=== PATIENT | male | born 1940 | race Caucasian/White ===

== ENCOUNTER → 2017-06-14 | Outpatient (CLI) | payer OTHER ==
[2015-09-07 18:01] VITALS: BP 143/70
--- NOTE | 2017-06-14 10:11 | US ---
HISTORY: Abdominal aortic aneurysm Study: Ultrasound of the abdominal aorta Comparison: October 09, 2015 Technique: Multiple sonographic images of the abdominal aorta are submitted for interpretation. Findings: The proximal abdominal aorta measures 2.3 x 2.4 cm compared to 2.5 x 2.7 cm on prior exam. The mid ab dominal aorta measures 4.5 x 4.9 cm compared to 3.9 x 4.0 cm on prior exam. The distal abdominal aort a measures 3.0 x 3.3 cm compared to 2.6 x 3.3 cm on prior exam. The common iliac arteries were not vi sualized. IMPRESSION: Aneurysmal dilatation of the abdominal aorta measuring up to 4.9 cm in caliber as discussed above. Th anton findings represent an interval increase in size since prior exam. Reported By:
== END ==
LOC: RAD 08:40
PROVIDERS: ATTEND Internal Medicine Cardiovascular Disease
DX: I71.4 Abdominal aortic aneurysm, without rupture (principal)
CPT/HCPCS: 76770

== ENCOUNTER 2021-03-25 00:55 | Inpatient (IN) ==
[2021-03-25 01:10] VITALS: BMI 32.1
--- NOTE | 2021-03-25 01:23 | DR.SOBA ---
HPI Time Seen Time Seen by Provider: 03/25/21 01:11 Primary Care Physician Primary Care Physician: SALLY HPI Comment HPI Comment: Worsening cough, congestion and sob over the past two 1-2weeks; he's been using jn at home but has not seen a doctor; he's had sob and wheezing and neb did not help tonight; his last cigarette was this past ; no fever, chills, abd pain, n/v/d, rash, adrian or dizziness Complaints Chief Complaint:: PT CAME IN [facility] BY [facility] PT STATED HE HAS BEEN MORE SOB FOR ABOUT A WEEK NOW THEN NORMALY HE SAID WHEN HE GETS SOB HE NORMALLY DOES A NEB TX AND IT HELPS BUT FOR SOME REASON TONIGHT AFTER THE NEB TX IT DIDNT HELP ANY. Self Treatment fo Chief Complaint: NEB TX COVID-19 Coronavirus risk:travel/contact w/high risk person: No Has patient experienced Coronavirus symptoms: Yes Coronavirus symptoms experienced: Shortness of Breath Source History Provided: Patient and EMS Mode of Arrival Mode of Arrival: EMS Timing Onset of Chief Complaint: 03/17/21 PMH PMH Past Medical History: Yes Past Medical History: COPD and Hypertension Past Medical History Comment: CHOLESTEROL Past Surgical History: Yes Surgical History: CABG/Valve Surgery and Ortho Surgery Family History History of Family Medical Conditions: Yes Family Medical History: Hypertension Social History Does patient currently use any type of tobacco product: Yes Have you used tobacco products in the last 12 months: Yes Type of Tobacco Use: Cigarettes How many years tobacco product used: 25 Does any household member use tobacco: Yes Alcohol Use: None Do you use any recreational Drugs:: No Lives With: Alone Lives Where: Home Travel Risk Coronavirus risk:travel/contact w/high risk person: No Has patient experienced Coronavirus symptoms: Yes Coronavirus symptoms experienced: Shortness of Breath Infectious screening In the last 2 months have you had wt loss of >10#?: NO Have you had fever, night sweats or hemotysis?: No Have you traveled outside the country in the last 6 months?: No Isolation: Standard ROS Review of Systems Constitutional: No Symptoms Reported Eyes: No Symptoms Reported ENTM: No Symptoms Reported Cardiovascular: No Symptoms Reported Gastrointestinal/Abdominal: No Symptoms Reported Genitourinary: No Symptoms Reported Neurological: No Symptoms Reported Musculoskeletal: No Symptoms Reported Integumentary: No Symptoms Reported Hematologic/Lymphatic: No Symptoms Reported Endocrine: No Symptoms Reported Psychiatric: No Symptoms Reported PE Vital Signs Vitals: Temperature 98.3 F Pulse Rate 109 Respiratory Rate 21 Blood Pressure [Left Arm] 142/78 Blood Pressure 166/76 O2 Sat by Pulse Oximetry 95 General Limitations: No Limitations General Appearance: Alert and In No Apparent Distress Head Head Exam: Normal Inspection Eyes Eye exam: Normal Appearance ENT ENT Exam: Normal Exam Neck Neck Exam: Normal Inspection, Full ROM and Trachea Midline Chest Chest Inspection: Normal Inspection and Symmetric Chest Wall Rise Respiratory Respiratory Exam: Bilateral: Decreased Breath Sounds Cardiovascular Cardiovascular Exam: Regular Rate and Normal Rhythm Abdominal Exam Abdominal Exam: Normal Inspection, Normal Bowel Sounds and Soft Extremities Extremities Exam: Normal Inspection and Full ROM Back Back Exam: Normal Inspection and Full ROM Neurologic Neurological Exam: Alert and Oriented X3 Psychiatric Psychiatric Exam: Normal Affect and Normal Mood Skin Skin Exam: Warm COURSE Consultation Call Returned: 07:08 (Dr Cool accepts admission.) ROR Labs Reviewed Laboratory Results Reviewed?: Yes Result Diagrams: 03/25/21 04:50 03/25/21 04:50 Laboratory: WBC 11.3 X10^3/uL (3.6-10.0) H 03/25/21 01:21 RBC 5.10 X10^6/uL (4.7-6.0) 03/25/21 01:21 Hgb 15.1 g/dL (13.5-18.0) 03/25/21 01:21 Hct 45.0 % (42.0-54.0) 03/25/21 01:21 MCV 88.2 fL (80.0-100.0) 03/25/21 01:21 MCH 29.5 pg (27.0-34.0) 03/25/21 01:21 MCHC 33.5 g/dL (33.0-35.0) 03/25/21 01: RDW 16.4 % (11.6-16.5) 03/25/21 01:21 Plt Count 148 X10^3/uL (150.0-450.0) L 03/25/21 01:21 MPV 8.9 fL (7.4-11.0) 03/25/21 01:21 Neut % (Auto) 76.1 % (42.0-75.0) H 03/25/21 01:21 Lymph % (Auto) 15.6 % (21.0-51.0) L 03/25/21 01:21 [place] % (Auto) 6.4 % (0.0-13.0) 03/25/21 01:21 Eos % (Auto) 1.2 % (0.9-2.9) 03/25/21 01:21 Baso % (Auto) 0.7 % (0.2-1.0) 03/25/21 01:21 Neut # (Auto) 8.6 x10^3/uL (2.2-4.8) H 03/25/21 01:21 Lymph # (Auto) 1.8 X10^3/uL (1.3-2.9) 03/25/21 01:21 [place] # (Auto) 0.7 x10^3/uL (0.3-0.8) 03/25/21 01:21 Eos # (Auto) 0.1 x10^3/uL (0.0-0.2) 03/25/21 01:21 Baso # (Auto) 0.1 X10^3/uL (0.0-0.1) 03/25/21 01:21 Absolute Nucleated RBC 0.2 /100WBC 03/25/21 01:21 D-Dimer 1.14 ug/ml (0.0-0.57) H* 03/25/21 01:21 Sample Site Lrad 03/25/21 01:45 ABG pH 7.380 (7.35-7.45) 03/25/21 01:45 ABG pCO2 53.0 mmHg (35.0-45.0) H* 03/25/21 01:45 ABG pO2 65.0 mmHg (80.0-100.0) L 03/25/21 01:45 ABG HCO3 31.4 mmol/L (22-26) H* 03/25/21 01:45 ABG O2 Saturation 92.0 % (90-100) 03/25/21 01:45 ABG Base Excess 5.0 mmol/L (-2.0-2.0) H 03/25/21 01:45 Anselmo Test Pos 03/25/21 01:45 A-a Gradient 125.0 mmHg 03/25/21 01:45 FiO2 36.0 03/25/21 01:45 Blood Gas Comments Kelly well ms 03/25/21 01:45 Sodium 141 mmol/L (136-145) 03/25/21 01:21 Corrected Sodium TNP 03/25/21 01:21 Potassium 4.2 mmol/L (3.5-5.1) 03/25/21 01:21 Chloride 103 mmol/L (98-107) 03/25/21 01:21 Carbon Dioxide 31.1 mmol/L (21-32) 03/25/21 01:21 BUN 20 mg/dL (7-18) H 03/25/21 01:21 Creatinine 1.16 mg/dL (0.70-1.30) 03/25/21 01:21 Est GFR (MDRD) Af Amer > 60 (>60) 03/25/21 01:21 Est GFR (MDRD) Non-Af > 60 (>60) 03/25/21 01:21 Glucose 109 mg/dL (65-99) H 03/25/21 01:21 Calcium 8.4 mg/dL (8.5-10.1) L 03/25/21 01:21 Corrected Calcium 9.0 mg/dL (8.5-10.1) 03/25/21 01:21 Total Bilirubin 0.40 mg/dL (0.2-1.0) 03/25/21 01:21 AST 25 Units/L (15-37) 03/25/21 01:21 ALT 29 Units/L (12-78) 03/25/21 01:21 Alkaline Phosphatase 75 Units/L (46-116) 03/25/21 01:21 B-Natriuretic Peptide 176 pg/mL (0-79) H 03/25/21 01:21 Total Protein 8.3 g/dL (6.4-8.2) H 03/25/21 01:21 Albumin 3.2 g/dL (3.4-5.0) L 03/25/21 01:21 Globulin 5.1 g/dL (2.5-4.5) H 03/25/21 01:21 Albumin/Globulin Ratio 0.6 Ratio (1.1-2.1) L 03/25/21 01:21 SARS-CoV-2 (PCR) Negative (NEGATIVE) 03/25/21 01:23 Influenza Type A (PCR) Negative (NEGATIVE) 03/25/21 01:23 Influenza Type B (PCR) Negative (NEGATIVE) 03/25/21 01:23 RSV (PCR) Negative (NEGATIVE) 03/25/21 01:23 XRAY XRAY Interpreted by: Radiologist X-ray Results: pcxr: The trachea is midline. The cardiac silhouette is enlarged. Changes of prior CABG surgery present.Chronic interstitial lung changes with flattening of the diaphragm consistent with COPD is observed. Small right pleural effusion with right basilar atelectasis or consolidation. The bony thorax is unremarkable. ct chest: Unremarkable CTA of the thoracic aorta and pulmonary arteries. Cardiomegaly with mild pulmonary vascular congestion with early interstitial edema. Small left and moderate-sized right pleural effusions with compressive atelectasis in the right lung base. Opioid Opioid Risk Tool Age (Gautam box if 16-45): No History of Preadolescent Sexual Abuse: No Total: 0 Total Score Risk Category: Low Risk Copyright: Maycol SANDOVAL predicting aberrant behaviors Diagnosis Discharge Problem: Hypoxia, COPD exacerbation, Mild congestive heart failure Instructions Forms: [facility] Patient Portal Social Distancing
[2021-03-25 01:45] LABS: ALANINE AMINOTRANSFERASE 29 Units/L (12-78); ALBUMIN 3.2 g/dL (3.4-5.0); ALKALINE PHOSPHATASE 75 Units/L (46-116); ASPARTATE AMINO TRANSFERASE 25 Units/L (15-37); BASOPHILS # (AUTO) 0.1 X10^3/uL (0.0-0.1); BASOPHILS % (AUTO) 0.7 % (0.2-1.0); BLOOD UREA NITROGEN 20 mg/dL (7-18); CALCIUM 8.4 mg/dL (8.5-10.1); CARBON DIOXIDE 31.1 mmol/L (21-32); CHLORIDE 103 mmol/L (98-107); CREATININE 1.16 mg/dL (0.70-1.30); EOSINOPHILS # (AUTO) 0.1 x10^3/uL (0.0-0.2); EOSINOPHILS % (AUTO) 1.2 % (0.9-2.9); HEMOGLOBIN 15.1 g/dL (13.5-18.0); LYMPHOCYTES # (AUTO) 1.8 X10^3/uL (1.3-2.9); LYMPHOCYTES % (AUTO) 15.6 % (21.0-51.0); MEAN CORPUSCULAR HEMOGLOBIN 29.5 pg (27.0-34.0); MEAN CORPUSCULAR HGB CONC 33.5 g/dL (33.0-35.0); MEAN CORPUSCULAR VOLUME 88.2 fL (80.0-100.0); MEAN PLATELET VOLUME 8.9 fL (7.4-11.0); MONOCYTES # (AUTO) 0.7 x10^3/uL (0.3-0.8); MONOCYTES % (AUTO) 6.4 % (0.0-13.0); NEUTROPHILS # (AUTO) 8.6 x10^3/uL (2.2-4.8); NEUTROPHILS % (AUTO) 76.1 % (42.0-75.0); PLATELET COUNT 148 X10^3/uL (150.0-450.0); RED CELL DISTRIBUTION WIDTH 16.4 % (11.6-16.5); SODIUM 141 mmol/L (136-145); TOTAL PROTEIN 8.3 g/dL (6.4-8.2); WHITE BLOOD COUNT 11.3 X10^3/uL (3.6-10.0); eGFR NON BLACK RACES > 60 (>60)
[2021-03-25 01:50] LABS: ABG ALLEN TEST POS
[2021-03-25] MEDS ORDERED: NS 100 ML IV 100 ML ONE (02:01)
[2021-03-25] MEDS ORDERED: SOLU-Medrol 125 MG VIAL IVP ONE (02:06)
[2021-03-25] MEDS ORDERED: ZITHROMAX INJ 500 MG VIAL 500 MG in NS 250 ML IV 250 ML IV SCH ×2 (02:07→04:32)
[2021-03-25] MEDS ORDERED: DUONEB 0.5 MG/3 MG (3 mL) NEB ONE ×2 (02:07→04:39)
[2021-03-25] MEDS ORDERED: SOLU-Medrol 125 MG VIAL ONE (02:21)
[2021-03-25] MEDS ORDERED: ZITHROMAX INJ 500 MG VIAL IV ONE (02:21)
[2021-03-25] MEDS ORDERED: NS 250 ML IV 250 ML IV ONE (02:21)
--- NOTE | 2021-03-25 02:43 | RAD ---
HISTORYSOB, COUGH PMH: COPD, HTN PSH: CABG/VALVE, ORTHOSTUDYCHEST, 1 [id number]/07/2019, report onlyFINDINGSThe trachea is midline. The cardiac silhouette is enlarged. Changes of prior CABG surgery present.Chronic interstitial lung changes with flattening of the diaphragm consistent with COPD is observed. Small right pleural effusion with right basilar atelectasis or consolidation. The bony thorax is unremarkable.IMPRESSIONCardiomegaly.COPD. consolidation..Electronically signed by: Jono Ibanez (Mar 25, 2021 02:41:27)
[2021-03-25] MEDS ORDERED: ATIVAN INJ 2 MG VIAL ONE (03:24)
[2021-03-25] MEDS ORDERED: ATIVAN INJ 2 MG VIAL IM ONE (03:30)
--- NOTE | 2021-03-25 04:21 | CT ---
HISTORYHYPOXIA, ELEVATED D-DIMERSTUDYCTA CHESTCOMPARISONChest radiograph 03/25/2021TECHNIQUEMultiple axial images of the chest were obtained from the thoracic inlet to the upper abdomen after the administration of IV contrast. 3D reconstructions utilizing axial MIPS imaging was performed and reviewed. Dose reduction techniques including Automated Exposure Control (AEC) and adjustment of mA and kV were utilized.FINDINGSThe mediastinum does not demonstrate significant pathological lymphadenopathy. There is no paracardial effusion observed. The heart is enlarged. The thoracic aorta is normal in its contour without evidence for aneurysmal dilatation. The central pulmonary arterial system does not demonstrate central filling defects to suggest pulmonary emboli.Evaluation of the lung parenchyma small left and moderate-sized right pleural effusions. There is compressive atelectasis within the right lung base. Mild pulmonary vascular congestion with early interstitial edema. Emphysematous changes throughout the lungs.. No pulmonary nodule or mass can be identified. The bony thorax is unremarkable in its appearance . The visualized portions of the upper abdomen are grossly unremarkable .IMPRESSIONUnremarkable CTA of the thoracic aorta and pulmonary arteries.Cardiomegaly with mild pulmonary vascular congestion with early interstitial edema.Small left and moderate-sized right pleural effusions with compressive atelectasis in the right lung base.Electronically signed by: Jono Ibanez (Mar 25, 2021 04:19:48)
[2021-03-25] MEDS ORDERED: ROCEPHIN VIAL 1 GRAM 1 G in NS 100 ML IV + SPIKE MINIBAG* 100 ML IV SCH (04:33)
[2021-03-25] MEDS ORDERED: ATIVAN TAB 1 MG PO PRN (04:34)
[2021-03-25] MEDS ORDERED: ROCEPHIN VIAL 1 GRAM ONE (04:54)
[2021-03-25] MEDS ORDERED: NS 100 ML IV + SPIKE MINIBAG* 100 ML IV ONE (04:54)
[2021-03-25 05:08] LABS: BASOPHILS # (AUTO) 0.1 X10^3/uL (0.0-0.1); BASOPHILS % (AUTO) 0.5 % (0.2-1.0); EOSINOPHILS # (AUTO) 0.1 x10^3/uL (0.0-0.2); EOSINOPHILS % (AUTO) 0.5 % (0.9-2.9); HEMATOCRIT 44.2 % (42.0-54.0); HEMOGLOBIN 14.6 g/dL (13.5-18.0); LYMPHOCYTES # (AUTO) 1.5 X10^3/uL (1.3-2.9); LYMPHOCYTES % (AUTO) 10.6 % (21.0-51.0); MEAN CORPUSCULAR HEMOGLOBIN 29.1 pg (27.0-34.0); MEAN CORPUSCULAR HGB CONC 32.9 g/dL (33.0-35.0); MEAN CORPUSCULAR VOLUME 88.3 fL (80.0-100.0); MEAN PLATELET VOLUME 9.3 fL (7.4-11.0); MONOCYTES # (AUTO) 0.2 x10^3/uL (0.3-0.8); MONOCYTES % (AUTO) 1.7 % (0.0-13.0); NEUTROPHILS # (AUTO) 12.3 x10^3/uL (2.2-4.8); NEUTROPHILS % (AUTO) 86.7 % (42.0-75.0); PLATELET COUNT 165 X10^3/uL (150.0-450.0); RED BLOOD COUNT 5.01 X10^6/uL (4.7-6.0); RED CELL DISTRIBUTION WIDTH 16.6 % (11.6-16.5); WHITE BLOOD COUNT 14.2 X10^3/uL (3.6-10.0)
[2021-03-25 05:17] LABS: ALANINE AMINOTRANSFERASE 28 Units/L (12-78); ALBUMIN 3.2 g/dL (3.4-5.0); ALKALINE PHOSPHATASE 78 Units/L (46-116); ASPARTATE AMINO TRANSFERASE 25 Units/L (15-37); BLOOD UREA NITROGEN 20 mg/dL (7-18); CALCIUM 8.3 mg/dL (8.5-10.1); CARBON DIOXIDE 28.2 mmol/L (21-32); CHLORIDE 102 mmol/L (98-107); COR CA(FOR HYPOALB) 8.9 mg/dL (8.5-10.1); COR NA(FOR HYPERGLY) 139 mmol/L (136-145); SODIUM 138 mmol/L (136-145); TOTAL PROTEIN 8.3 g/dL (6.4-8.2); eGFR NON BLACK RACES > 60 (>60)
[2021-03-25] MEDS ORDERED: MORPHINE SULFATE INJ 2 MG INJ IVP PRN (05:21)
[2021-03-25] MEDS ORDERED: MORPHINE SULFATE INJ 2 MG INJ ONE (05:22)
[2021-03-25] MEDS: DUONEB 0.5 MG/3 MG (3 mL) NEB PRN ×5 (05:59→21:00)
[2021-03-25 06:37] LABS: CKMB % 2.6 % (<4); CREATINE KINASE 108 Units/L (39-308); CREATINE KINASE MB 2.8 ng/mL (0-4.0); TROPONIN I < 0.02 ng/mL (0-1.5)
[2021-03-25] MEDS: LASIX IVP SCH ×2 (08:46→09:08)
[2021-03-25] MEDS: LOVENOX INJ 40 MG SYR SC SCH (08:47)
[2021-03-25] MEDS ORDERED: TOPROL XL PO ONE (12:02)
[2021-03-25] MEDS: TOPROL XL PO SCH (12:09)
[2021-03-25] MEDS: XANAX PO PRN (12:09)
[2021-03-25] MEDS: SOLU-Medrol 125 MG VIAL IVP SCH ×2 (14:18→21:00)
[2021-03-25] MEDS: NORVASC TAB 10 MG PO SCH (14:26)
[2021-03-25] MEDS: ZITHROMAX INJ 500 MG VIAL 500 MG in NS 250 ML IV 250 ML IV SCH (20:23)
[2021-03-25] MEDS: PEPCID TAB 20 MG PO SCH (20:25)
[2021-03-25] MEDS: PERCOCET TAB 5/325 MG PO SCH (20:26)
[2021-03-25] MEDS: ZANAFLEX PO SCH (20:27)
[2021-03-26] MEDS: XANAX PO PRN ×2 (05:00→20:36)
[2021-03-26 05:02] LABS: BASOPHILS % (AUTO) 0.3 % (0.2-1.0); HEMATOCRIT 41.5 % (42.0-54.0); HEMOGLOBIN 13.9 g/dL (13.5-18.0); LYMPHOCYTES # (AUTO) 1.2 X10^3/uL (1.3-2.9); MEAN CORPUSCULAR HEMOGLOBIN 29.3 pg (27.0-34.0); MEAN CORPUSCULAR HGB CONC 33.6 g/dL (33.0-35.0); MEAN CORPUSCULAR VOLUME 87.3 fL (80.0-100.0); MEAN PLATELET VOLUME 9.8 fL (7.4-11.0); MONOCYTES # (AUTO) 0.3 x10^3/uL (0.3-0.8); MONOCYTES % (AUTO) 2.4 % (0.0-13.0); NEUTROPHILS # (AUTO) 11.2 x10^3/uL (2.2-4.8); NEUTROPHILS % (AUTO) 88.3 % (42.0-75.0); PLATELET COUNT 151 X10^3/uL (150.0-450.0); RED BLOOD COUNT 4.76 X10^6/uL (4.7-6.0); RED CELL DISTRIBUTION WIDTH 16.1 % (11.6-16.5); WHITE BLOOD COUNT 12.7 X10^3/uL (3.6-10.0)
[2021-03-26 05:18] LABS: ALANINE AMINOTRANSFERASE 30 Units/L (12-78); ALKALINE PHOSPHATASE 71 Units/L (46-116); ASPARTATE AMINO TRANSFERASE 26 Units/L (15-37); BLOOD UREA NITROGEN 31 mg/dL (7-18); CALCIUM 8.3 mg/dL (8.5-10.1); CARBON DIOXIDE 27.4 mmol/L (21-32); CHLORIDE 102 mmol/L (98-107); COR CA(FOR HYPOALB) 9.1 mg/dL (8.5-10.1); COR NA(FOR HYPERGLY) 142 mmol/L (136-145); CREATININE 1.36 mg/dL (0.70-1.30); SODIUM 140 mmol/L (136-145); TOTAL PROTEIN 7.8 g/dL (6.4-8.2); eGFR NON BLACK RACES 54 (>60)
[2021-03-26] MEDS: SOLU-Medrol 125 MG VIAL IVP SCH ×3 (05:55→21:27)
[2021-03-26] MEDS: DUONEB 0.5 MG/3 MG (3 mL) NEB PRN ×4 (06:00→16:35)
--- NOTE | 2021-03-26 06:09 | RAD ---
HISTORYCOPDSTUDYChest AP [id number] ent is status post median sternotomy and CABG. The heart remains enlarged. Mild congestive heart failure is present in the form of mild interstitial edema. No alveolar edema or alveolar infiltrates identified. Small right pleural effusion is unchanged. Bony thorax is unremarkable.IMPRESSIONCardiomegaly with mild congestive heart failureNo change right pleural effusionElectronically signed by: SUSAN JOYCE (Mar 26, 2021 06:07:49)
--- NOTE | 2021-03-26 08:13 | DR.H&P ---
H&P History & Physical for Day of: H&P Date: 03/25/21 Chief Complaint Chief Complaint: Shortness of breath Cough, weakness Allergies Allergies Allergy/AdvReac Type Severity Reaction Status Date / Time No Known Drug Allergies Allergy Verified 06/02/18 17:31 History of Present Illness History of Present Illness: Pt is a 81 year old male past medical history of CO PD, CABG, Hypertension, presenting with progressively worsening shortness of breath and weakness for the past week. He also reports not taking his lasix for the past couple days. In the ED he was found to have dyspnea, wheezing, and hypoxic. He is currently requiring 3L nasal cannula supplemental oxygen. Labs/imaging: Wbc 14.2, Hgb 14.6, Plt 165, Na 138, K 4.1, Creatinine 1.10, Glucose 134, Troponin negative, BNP 176, D-dimer 1.14, ABG was obtained: pH 7.38, pCO2 53, pO2 65, HCO3 31, O2sat 92% on FiO2 36%. COVID/RSV/Flu negative, CXR: Chronic interstitial lung changes with flattening of the diaphragm consistent with COPD is observed. Small right pleural effusion with right basilar atelectasis or consolidation. CTA Chest was obtained due to elevated D- dimer that revealed: Unremarkable CTA of the thoracic aorta and pulmonary arteries. Cardiomegaly with mild pulmonary vascular congestion with early interstitial edema. Small left and moderate-sized right pleural effusions with compressive atelectasis in the right lung base. Pt was started on treatment for COPD exacerbation and CHF exacerbation that includes: Antibiotics: Rocephin, Azithromycin, IV Lasix 40mg daily, IV Solumedrol 80mg q8h, scheduled bronchodilators. Wean/titrate supplemental oxygen as tolerated, restart home medications. Review of records had Echo in 11/2020: EF 61%. Continue to monitor closely and follow up labs/imaging in the morning. Time spent on clinical assessment, reviewing labs and imaging, decision making, and documentation greater than 45 minutes. Past Medical History Past Medical History: COPD and Hypertension Past Surgical History Surgical History: CABG/Valve Surgery Family History Family Medical History: Hypertension Social History Does patient currently use any type of tobacco product: Yes Have you used tobacco products in the last 12 months: Yes Type of Tobacco Use: Cigarettes How many years tobacco product used: 25 Does any household member use tobacco: Yes Alcohol Use: None Drug Use: None Medications Home Medications: No Known Drug Allergies Allergy (Verified 06/02/18 17:31) CONTINUE taking the following medications albuterol sulfate 90 mcg INHALATION PRN PRN 03/25/21 [History] alprazolam 0.5 mg PO Q6H PRN 03/25/21 [History] famotidine 20 mg PO BID 03/25/21 [History] furosemide 40 mg PO DAILY 03/25/21 [History] ipratropium-albuterol 2.5 ml INHALATION PRN PRN 03/25/21 [History] oxycodone-acetaminophen 1 tab PO BID 03/25/21 [History] potassium chloride 20 meq PO DAILY 03/25/21 [History] simvastatin 10 mg PO DAILY 03/25/21 [History] tizanidine 4 mg PO BID 03/25/21 [History] Labs Result Diagrams: 03/26/21 04:18 03/26/21 04:18 Labs: Laboratory WBC 12.7 X10^3/uL (3.6-10.0) H 03/26/21 04:18 RBC 4.76 X10^6/uL (4.7-6.0) 03/26/21 04:18 Hgb 13.9 g/dL (13.5-18.0) 03/26/21 04:18 Hct 41.5 % (42.0-54.0) L 03/26/21 04:18 MCV 87.3 fL (80.0-100.0) 03/26/21 04:18 MCH 29.3 pg (27.0-34.0) 03/26/21 04:18 MCHC 33.6 g/dL (33.0-35.0) 03/26/21 04:18 RDW 16.1 % (11.6-16.5) 03/26/21 04:18 Plt Count 151 X10^3/uL (150.0-450.0) 03/26/21 04:18 MPV 9.8 fL (7.4-11.0) 03/26/21 04:18 Neut % (Auto) 88.3 % (42.0-75.0) H 03/26/21 04:18 Lymph % (Auto) 9.0 % (21.0-51.0) L 03/26/21 04:18 [place] % (Auto) 2.4 % (0.0-13.0) 03/26/21 04:18 Eos % (Auto) 0.0 % (0.9-2.9) L 03/26/21 04:18 Baso % (Auto) 0.3 % (0.2-1.0) 03/26/21 04:18 Neut # (Auto) 11.2 x10^3/uL (2.2-4.8) H 03/26/21 04:18 Lymph # (Auto) 1.2 X10^3/uL (1.3-2.9) L 03/26/21 04:18 [place] # (Auto) 0.3 x10^3/uL (0.3-0.8) 03/26/21 04:18 Eos # (Auto) 0.0 x10^3/uL (0.0-0.2) 03/26/21 04:18 Baso # (Auto) 0.0 X10^3/uL (0.0-0.1) 03/26/21 04:18 Absolute Nucleated RBC 0.1 /100WBC 03/26/21 04:18 D-Dimer 1.14 ug/ml (0.0-0.57) H* 03/25/21 01:21 Sample Site Lrad 03/25/21 01:45 ABG pH 7.380 (7.35-7.45) 03/25/21 01:45 ABG pCO2 53.0 mmHg (35.0-45.0) H* 03/25/21 01:45 ABG pO2 65.0 mmHg (80.0-100.0) L 03/25/21 01:45 ABG HCO3 31.4 mmol/L (22-26) H* 03/25/21 01:45 ABG O2 Saturation 92.0 % (90-100) 03/25/21 01:45 ABG Base Excess 5.0 mmol/L (-2.0-2.0) H 03/25/21 01:45 Anselmo Test Pos 03/25/21 01:45 A-a Gradient 125.0 mmHg 03/25/21 01:45 FiO2 36.0 03/25/21 01:45 Blood Gas Comments Kelly well ms 03/25/21 01:45 Sodium 140 mmol/L (136-145) 03/26/21 04:18 Corrected Sodium 142 mmol/L (136-145) 03/26/21 04:18 Potassium 4.1 mmol/L (3.5-5.1) 03/26/21 04:18 Chloride 102 mmol/L (98-107) 03/26/21 04:18 Carbon Dioxide 27.4 mmol/L (21-32) 03/26/21 04:18 BUN 31 mg/dL (7-18) H 03/26/21 04:18 Creatinine 1.36 mg/dL (0.70-1.30) H 03/26/21 04:18 Est GFR (MDRD) Af Amer > 60 (>60) 03/26/21 04:18 Est GFR (MDRD) Non-Af 54 (>60) L 03/26/21 04:18 Glucose 174 mg/dL (65-99) H 03/26/21 04:18 Calcium 8.3 mg/dL (8.5-10.1) L 03/26/21 04:18 Corrected Calcium 9.1 mg/dL (8.5-10.1) 03/26/21 04:18 Total Bilirubin 0.30 mg/dL (0.2-1.0) 03/26/21 04:18 AST 26 Units/L (15-37) 03/26/21 04:18 ALT 30 Units/L (12-78) 03/26/21 04:18 Alkaline Phosphatase 71 Units/L (46-116) 03/26/21 04:18 Creatine Kinase 108 Units/L (39-308) 03/25/21 04:50 CK-MB (CK-2) 2.8 ng/mL (0-4.0) 03/25/21 04:50 CK/CKMB % Calc 2.6 % (<4) 03/25/21 04:50 Troponin I < 0.02 ng/mL (0-1.5) 03/25/21 04:50 B-Natriuretic Peptide 176 pg/mL (0-79) H 03/25/21 01:21 Total Protein 7.8 g/dL (6.4-8.2) 03/26/21 04:18 Albumin 3.0 g/dL (3.4-5.0) L 03/26/21 04:18 Globulin 4.8 g/dL (2.5-4.5) H 03/26/21 04:18 Albumin/Globulin Ratio 0.6 Ratio (1.1-2.1) L 03/26/21 04:18 SARS-CoV-2 (PCR) Negative (NEGATIVE) 03/25/21 01:23 Influenza Type A (PCR) Negative (NEGATIVE) 03/25/21 01:23 Influenza Type B (PCR) Negative (NEGATIVE) 03/25/21 01:23 RSV (PCR) Negative (NEGATIVE) 03/25/21 01:23 Review of Systems Constitutional: Weakness; denies Fever and Chills Eyes: No Symptoms Reported ENT: No Symptoms Reported Respiratory: Cough, Shortness of Breath, Sputum and Wheezing Cardiovascular: No Symptoms Reported Gastrointestinal: No Symptoms Reported Genitourinary: No Symptoms Reported Musculoskeletal: No Symptoms Reported Skin: No Symptoms Reported Neurological: No Symptoms Reported Physical Exam Vital Signs: Temperature 97.8 F Pulse Rate [Radial] 109 Pulse Rate 101 Respiratory Rate 26 Blood Pressure [Left Arm] 142/78 Blood Pressure 148/70 O2 Sat by Pulse Oximetry 92 Oriented: Normal Eyes: Normal Ear: Normal Nose: Normal Throat: Normal Respiratory: Diminished Throughout, Rales Throughout and Wheezes Throughout Cardiovascular: Normal : Normal Auscultation: Bowel Sounds: Normal Palpation: Normal Tenderness: Normal Skin: Normal Musculoskeletal: Normal Psychiatric: Normal Mood Description: Calm and Appropriate Affect: Normal Speech Pattern: Clear and Appropriate Assessment/Plan (1) COPD exacerbation: Status: Acute (2) Mild congestive heart failure: Status: Acute (3) Hypoxia: Status: Acute Review H&P Reviewed: Yes Patient was examined?: Yes
[2021-03-26] MEDS ORDERED: TOPROL XL PO ONE (08:25)
[2021-03-26] MEDS: LOVENOX INJ 40 MG SYR SC SCH (08:48)
[2021-03-26] MEDS: ECOTRIN TAB 325 MG PO SCH (08:50)
[2021-03-26] MEDS: LASIX IVP SCH (08:50)
[2021-03-26] MEDS: ROCEPHIN VIAL 1 GRAM 1 G in NS 100 ML IV + SPIKE MINIBAG* 100 ML IV SCH (08:51)
[2021-03-26] MEDS: PEPCID TAB 20 MG PO SCH ×2 (08:51→20:35)
[2021-03-26] MEDS: NORVASC TAB 10 MG PO SCH (08:51)
[2021-03-26] MEDS: PERCOCET TAB 5/325 MG PO SCH ×2 (08:51→20:35)
[2021-03-26] MEDS: TOPROL XL PO SCH (08:51)
[2021-03-26] MEDS: ZOCOR TAB 10 MG PO SCH (08:52)
[2021-03-26] MEDS: ZANAFLEX PO SCH ×2 (08:52→20:36)
[2021-03-26] MEDS ORDERED: SOLU-Medrol 125 MG VIAL IVP SCH (09:00)
[2021-03-26] MEDS ORDERED: ZOFRAN INJ 4 MG VIAL IVP PRN (12:42)
[2021-03-26 14:09] LABS: ABG HCO3 31.4 mmol/L (22-26)
--- NOTE | 2021-03-26 18:57 | PCM.PROG ---
Progress Note Progress Note for Day of Date of Exam: 03/26/21 Subjective Subjective: Pt is a 81 year old male past medical history of COPD, CABG, Hypertension, admitted for COPD exacerbation and CHF exacerbation. He is currently still requiring 3L nasal cannula supplemental oxygen. This morning patient reports his breathing has improved and he feels better than yesterday. Labs/imaging: Wbc 12.7, Hgb 13.9, Plt 151, Na 140, K 4.1, Creatinine 1.36, Glucose 174. CXR this morning was obtained that revealed: Cardiomegaly with mild congestive heart failure. No change right pleural effusion. Pt is on current treatments that includes: Antibiotics: Rocephin, Azithromycin, IV Lasix 40mg daily, IV Solumedrol 80mg q8h, scheduled bronchodilators. Will wean/titrate supplemental oxygen as tolerated. Respiratory therapy and physical therapy to work with patient today and assess oxygen requirement and functional status. Change lasix to home dose of 40mg po daily. Continue to monitor closely and follow up labs/imaging in the morning. Past Medical Family Social History Past Med/Fam/Surg Hx: No changes since H&P Allergies: Allergies No Known Drug Allergies Allergy (Verified 06/02/18 17:31) Review of Systems ROS: No change since H&P Vital Signs and I&O's Vital Signs: Temperature 97.5 F Pulse Rate [Radial] 109 Pulse Rate 72 Respiratory Rate 34 Blood Pressure [Left Arm] 142/78 Blood Pressure 123/79 O2 Sat by Pulse Oximetry 97 Intake and Output: Intake & Output 03/23/21 03/24/21 03/25/21 03/26/21 23:59 23:59 23:59 23:59 Intake Total 1830 / 1830 1120 / 1120 Output Total 1350 / 1350 950 / 950 Balance 480 / 480 170 / 170 Physical Exam Oriented: Normal Eyes: Normal Ear: Normal Nose: Normal Throat: Normal Respiratory: Diminished Cardiovascular: Normal : Normal Auscultation: Bowel Sounds: Normal Tenderness: Normal Skin: Normal Musculoskeletal: Normal Psychiatric: Normal Mood Description: Calm and Appropriate Affect: Normal Speech Pattern: Clear and Appropriate Laboratory and Diagnostics Result Diagrams: 03/26/21 04:18 03/26/21 04:18 Labs: Laboratory WBC 12.7 X10^3/uL (3.6-10.0) H 03/26/21 04:18 RBC 4.76 X10^6/uL (4.7-6.0) 03/26/21 04:18 Hgb 13.9 g/dL (13.5-18.0) 03/26/21 04:18 Hct 41.5 % (42.0-54.0) L 03/26/21 04:18 MCV 87.3 fL (80.0-100.0) 03/26/21 04:18 MCH 29.3 pg (27.0-34.0) 03/26/21 04:18 MCHC 33.6 g/dL (33.0-35.0) 03/26/21 04:18 RDW 16.1 % (11.6-16.5) 03/26/21 04:18 Plt Count 151 X10^3/uL (150.0-450.0) 03/26/21 04:18 MPV 9.8 fL (7.4-11.0) 03/26/21 04:18 Neut % (Auto) 88.3 % (42.0-75.0) H 03/26/21 04:18 Lymph % (Auto) 9.0 % (21.0-51.0) L 03/26/21 04:18 [place] % (Auto) 2.4 % (0.0-13.0) 03/26/21 04:18 Eos % (Auto) 0.0 % (0.9-2.9) L 03/26/21 04:18 Baso % (Auto) 0.3 % (0.2-1.0) 03/26/21 04:18 Neut # (Auto) 11.2 x10^3/uL (2.2-4.8) H 03/26/21 04:18 Lymph # (Auto) 1.2 X10^3/uL (1.3-2.9) L 03/26/21 04:18 [place] # (Auto) 0.3 x10^3/uL (0.3-0.8) 03/26/21 04:18 Eos # (Auto) 0.0 x10^3/uL (0.0-0.2) 03/26/21 04:18 Baso # (Auto) 0.0 X10^3/uL (0.0-0.1) 03/26/21 04:18 Absolute Nucleated RBC 0.1 /100WBC 03/26/21 04:18 D-Dimer 1.14 ug/ml (0.0-0.57) H* 03/25/21 01:21 Sample Site Lrad 03/25/21 01:45 ABG pH 7.380 (7.35-7.45) 03/25/21 01:45 ABG pCO2 53.0 mmHg (35.0-45.0) H* 03/25/21 01:45 ABG pO2 65.0 mmHg (80.0-100.0) L 03/25/21 01:45 ABG HCO3 31.4 mmol/L (22-26) H* 03/25/21 01:45 ABG O2 Saturation 92.0 % (90-100) 03/25/21 01:45 ABG Base Excess 5.0 mmol/L (-2.0-2.0) H 03/25/21 01:45 Anselmo Test Pos 03/25/21 01:45 A-a Gradient 125.0 mmHg 03/25/21 01:45 FiO2 36.0 03/25/21 01:45 Blood Gas Comments Kelly well ms 03/25/21 01:45 Sodium 140 mmol/L (136-145) 03/26/21 04:18 Corrected Sodium 142 mmol/L (136-145) 03/26/21 04:18 Potassium 4.1 mmol/L (3.5-5.1) 03/26/21 04:18 Chloride 102 mmol/L (98-107) 03/26/21 04:18 Carbon Dioxide 27.4 mmol/L (21-32) 03/26/21 04:18 BUN 31 mg/dL (7-18) H 03/26/21 04:18 Creatinine 1.36 mg/dL (0.70-1.30) H 03/26/21 04:18 Est GFR (MDRD) Af Amer > 60 (>60) 03/26/21 04:18 Est GFR (MDRD) Non-Af 54 (>60) L 03/26/21 04:18 Glucose 174 mg/dL (65-99) H 03/26/21 04:18 Calcium 8.3 mg/dL (8.5-10.1) L 03/26/21 04:18 Corrected Calcium 9.1 mg/dL (8.5-10.1) 03/26/21 04:18 Total Bilirubin 0.30 mg/dL (0.2-1.0) 03/26/21 04:18 AST 26 Units/L (15-37) 03/26/21 04:18 ALT 30 Units/L (12-78) 03/26/21 04:18 Alkaline Phosphatase 71 Units/L (46-116) 03/26/21 04:18 Creatine Kinase 108 Units/L (39-308) 03/25/21 04:50 CK-MB (CK-2) 2.8 ng/mL (0-4.0) 03/25/21 04:50 CK/CKMB % Calc 2.6 % (<4) 03/25/21 04:50 Troponin I < 0.02 ng/mL (0-1.5) 03/25/21 04:50 B-Natriuretic Peptide 176 pg/mL (0-79) H 03/25/21 01:21 Total Protein 7.8 g/dL (6.4-8.2) 03/26/21 04:18 Albumin 3.0 g/dL (3.4-5.0) L 03/26/21 04:18 Globulin 4.8 g/dL (2.5-4.5) H 03/26/21 04:18 Albumin/Globulin Ratio 0.6 Ratio (1.1-2.1) L 03/26/21 04:18 SARS-CoV-2 (PCR) Negative (NEGATIVE) 03/25/21 01:23 Influenza Type A (PCR) Negative (NEGATIVE) 03/25/21 01:23 Influenza Type B (PCR) Negative (NEGATIVE) 03/25/21 01:23 RSV (PCR) Negative (NEGATIVE) 03/25/21 01:23 Plan (1) COPD exacerbation: Status: Acute (2) Mild congestive heart failure: Status: Acute (3) Hypoxia: Status: Acute
[2021-03-26] MEDS: ZITHROMAX INJ 500 MG VIAL 500 MG in NS 250 ML IV 250 ML IV SCH (20:36)
[2021-03-27] MEDS: SOLU-Medrol 125 MG VIAL IVP SCH (05:15)
[2021-03-27 05:30] LABS: BASOPHILS % (AUTO) 0.1 % (0.2-1.0); HEMATOCRIT 39.7 % (42.0-54.0); HEMOGLOBIN 13.1 g/dL (13.5-18.0); LYMPHOCYTES # (AUTO) 0.7 X10^3/uL (1.3-2.9); MEAN CORPUSCULAR HEMOGLOBIN 28.9 pg (27.0-34.0); MEAN CORPUSCULAR VOLUME 87.7 fL (80.0-100.0); MONOCYTES # (AUTO) 0.3 x10^3/uL (0.3-0.8); MONOCYTES % (AUTO) 2.4 % (0.0-13.0); NEUTROPHILS % (AUTO) 91.5 % (42.0-75.0); PLATELET COUNT 149 X10^3/uL (150.0-450.0); RED BLOOD COUNT 4.53 X10^6/uL (4.7-6.0); RED CELL DISTRIBUTION WIDTH 16.3 % (11.6-16.5); WHITE BLOOD COUNT 12.1 X10^3/uL (3.6-10.0)
[2021-03-27 05:50] LABS: ALBUMIN 2.9 g/dL (3.4-5.0); CALCIUM 8.1 mg/dL (8.5-10.1); CARBON DIOXIDE 30.2 mmol/L (21-32); CREATININE 1.5 mg/dL (0.70-1.30); TOTAL PROTEIN 7.2 g/dL (6.4-8.2)
[2021-03-27 05:59] LABS: PLATELET MORPHOLOGY COMMENT NORMAL (NORMAL)
--- NOTE | 2021-03-27 06:23 | RAD ---
HISTORYCOPD F/USTUDYCHEST, 1 VIEWCOMPARISONOne day prior.TECHNIQUEAP view of the chestFINDINGSStatus post median sternotomy and CABG. The cardiac silhouette is stably enlarged. Mediastinal contours appear stable. Moderate right pleural effusion similar to prior. Associated mild consolidation versus atelectasis. No pneumothorax.IMPRESSIONNo significant change.Electronically signed by: Guido Clifton (Mar 27, 2021 06:21:27)
[2021-03-27] MEDS ORDERED: TOPROL XL PO ONE (08:14)
[2021-03-27] MEDS: ECOTRIN TAB 325 MG PO SCH (08:49)
[2021-03-27] MEDS: ZANAFLEX PO SCH (08:50)
[2021-03-27] MEDS: ZOCOR TAB 10 MG PO SCH (08:50)
[2021-03-27] MEDS: TOPROL XL PO SCH (08:51)
[2021-03-27] MEDS: ROCEPHIN VIAL 1 GRAM 1 G in NS 100 ML IV + SPIKE MINIBAG* 100 ML IV SCH (08:52)
[2021-03-27] MEDS: PERCOCET TAB 5/325 MG PO SCH (08:52)
[2021-03-27] MEDS: PEPCID TAB 20 MG PO SCH (08:53)
[2021-03-27] MEDS: NORVASC TAB 10 MG PO SCH (08:53)
[2021-03-27] MEDS: LOVENOX INJ 40 MG SYR SC SCH (08:56)
[2021-03-27] MEDS ORDERED: K-DUR TAB 20 MEQ PO SCH (09:00)
[2021-03-27] MEDS ORDERED: LASIX PO SCH (09:00)
[2021-03-27] MEDS: DUONEB 0.5 MG/3 MG (3 mL) NEB PRN (09:40)
--- NOTE | 2021-03-27 10:03 | W.DIS.FURT ---
Summary of Discharge Discharge Summary of Date Date of Exam: 03/27/21 Admission Date Date of Admission: 03/25/21 Admission Diagnosis Patient Problems (Updated 03/25/21 @ 07:09 by Josefina Saunders) Hypoxia (Acute) R09.02 COPD exacerbation (Acute) J44.1 Mild congestive heart failure (Acute) I50.9 Hospital Course: Pt is a 81 year old male past medical history of COPD, CABG, Hypertension, admitted for COPD exacerbation and CHF exacerbation. His hospital/treatment course included: Antibiotics: Rocephin, Azithromycin, IV Lasix 40mg daily, IV Solumedrol 80mg q8h, scheduled bronchodilators. Supplemental oxygen was weaned down to 3L nasal cannula. Pt responded well to treatments and reported significant improvement in his breathing. He was discharged home with supplemental oxygen, home health, and instructed to complete prednisone course. Discharged in stable condition and instructed to follow up with pcp in 3-5 days. Vital Signs: Vital Signs (72 hours) 03/25/21 00:57 03/25/21 01:00 03/25/21 01:15 Temperature 98.3 F Pulse Rate 97 H 96 H 101 H Pulse Rate [Radial] Respiratory Rate 21 27 H 27 H Blood Pressure 166/76 O2 Sat by Pulse Oximetry 97 97 96 03/25/21 01:30 03/25/21 01:45 03/25/21 02:00 Temperature Pulse Rate 99 H 102 H 109 H Pulse Rate [Radial] Respiratory Rate 30 H 25 H 35 H Blood Pressure O2 Sat by Pulse Oximetry 96 95 03/25/21 02:15 03/25/21 02:20 03/25/21 02:30 Temperature Pulse Rate 109 H 106 H 109 H Pulse Rate [Radial] Respiratory Rate 30 H 39 H Blood Pressure O2 Sat by Pulse Oximetry 90 L 95 03/25/21 02:45 03/25/21 03:02 03/25/21 03:15 Temperature Pulse Rate 110 H 109 H 105 H Pulse Rate [Radial] Respiratory Rate 25 H 25 H 29 H Blood Pressure O2 Sat by Pulse Oximetry 95 95 95 03/25/21 03:52 03/25/21 03:55 03/25/21 04:00 Temperature Pulse Rate 109 H 109 H Pulse Rate [Radial] Respiratory Rate 26 H 25 H Blood Pressure O2 Sat by Pulse Oximetry 85 L 91 L 94 L 03/25/21 04:15 03/25/21 04:17 03/25/21 04:30 Temperature Pulse Rate 109 H 109 H 109 H Pulse Rate [Radial] Respiratory Rate 27 H 21 34 H Blood Pressure O2 Sat by Pulse Oximetry 93 L 95 88 L 03/25/21 04:45 03/25/21 04:55 03/25/21 05:00 Temperature Pulse Rate 109 H 109 H Pulse Rate [Radial] 109 H Respiratory Rate 36 H 24 26 H Blood Pressure 140/93 O2 Sat by Pulse Oximetry 92 L 91 L 93 L 03/25/21 05:24 03/25/21 05:54 03/25/21 05:59 Temperature Pulse Rate 109 H Pulse Rate [Radial] Respiratory Rate 23 22 Blood Pressure O2 Sat by Pulse Oximetry 91 L 03/25/21 06:00 03/25/21 07:00 03/25/21 09:00 Temperature 98.0 F Pulse Rate 107 H 103 H 107 H Pulse Rate [Radial] Respiratory Rate 20 17 15 Blood Pressure 123/83 124/71 119/76 O2 Sat by Pulse Oximetry 95 98 98 03/25/21 09:02 03/25/21 13:02 03/25/21 14:16 Temperature 98.2 F Pulse Rate 108 H 108 H 99 H Pulse Rate [Radial] Respiratory Rate 23 Blood Pressure 141/74 O2 Sat by Pulse Oximetry 90 L 96 94 L 03/25/21 16:00 03/25/21 17:19 03/25/21 20:00 Temperature 98.3 F 98.0 F Pulse Rate 90 90 Pulse Rate [Radial] Respiratory Rate 22 30 H Blood Pressure 136/70 125/79 O2 Sat by Pulse Oximetry 96 97 94 L 03/25/21 20:26 03/25/21 20:30 03/25/21 20:45 Temperature Pulse Rate 106 H 97 H Pulse Rate [Radial] Respiratory Rate 20 30 H 25 H Blood Pressure O2 Sat by Pulse Oximetry 87 L 99 03/25/21 21:00 03/25/21 21:15 03/25/21 21:26 Temperature Pulse Rate 63 53 L Pulse Rate [Radial] Respiratory Rate 18 15 20 Blood Pressure O2 Sat by Pulse Oximetry 95 93 L 03/25/21 21:30 03/25/21 21:45 03/25/21 22:00 Temperature Pulse Rate 53 L 53 L 53 L Pulse Rate [Radial] Respiratory Rate 15 15 22 Blood Pressure O2 Sat by Pulse Oximetry 91 L 91 L 92 L 03/25/21 22:15 03/25/21 22:30 03/25/21 22:45 Temperature Pulse Rate 52 L 52 L 52 L Pulse Rate [Radial] Respiratory Rate 16 15 14 Blood Pressure O2 Sat by Pulse Oximetry 91 L 92 L 93 L 03/25/21 23:00 03/25/21 23:15 03/25/21 23:26 Temperature Pulse Rate 52 L 53 L 72 Pulse Rate [Radial] Respiratory Rate 14 15 32 H Blood Pressure 127/64 O2 Sat by Pulse Oximetry 96 94 L 92 L 03/25/21 23:30 03/25/21 23:45 03/26/21 00:00 Temperature 98.0 F Pulse Rate 78 104 H 82 Pulse Rate [Radial] Respiratory Rate 29 H 38 H 21 Blood Pressure 127/64 O2 Sat by Pulse Oximetry 94 L 88 L 96 03/26/21 00:15 03/26/21 00:30 03/26/21 00:45 Temperature Pulse Rate 63 59 L 60 Pulse Rate [Radial] Respiratory Rate 14 15 16 Blood Pressure O2 Sat by Pulse Oximetry 96 96 95 03/26/21 01:00 03/26/21 01:15 03/26/21 01:30 Temperature Pulse Rate 64 64 106 H Pulse Rate [Radial] Respiratory Rate 15 16 36 H Blood Pressure O2 Sat by Pulse Oximetry 96 94 L 87 L 03/26/21 01:45 03/26/21 02:00 03/26/21 02:15 Temperature Pulse Rate 106 H 88 79 Pulse Rate [Radial] Respiratory Rate 39 H 24 14 Blood Pressure O2 Sat by Pulse Oximetry 90 L 94 L 92 L 03/26/21 02:30 03/26/21 02:45 03/26/21 03:00 Temperature Pulse Rate 80 76 82 Pulse Rate [Radial] Respiratory Rate 15 16 18 Blood Pressure O2 Sat by Pulse Oximetry 95 96 92 L 03/26/21 03:15 03/26/21 03:30 03/26/21 03:45 Temperature Pulse Rate 80 109 H 109 H Pulse Rate [Radial] Respiratory Rate 14 49 H 38 H Blood Pressure O2 Sat by Pulse Oximetry 96 89 L 85 L 03/26/21 04:00 03/26/21 04:15 03/26/21 04:30 Temperature 97.9 F Pulse Rate 107 H 101 H 101 H Pulse Rate [Radial] Respiratory Rate 31 H 33 H 29 H Blood Pressure 158/83 O2 Sat by Pulse Oximetry 92 L 93 L 95 03/26/21 04:45 03/26/21 05:00 03/26/21 05:15 Temperature Pulse Rate 108 H 108 H 108 H Pulse Rate [Radial] Respiratory Rate 28 H 28 H 23 Blood Pressure O2 Sat by Pulse Oximetry 89 L 90 L 92 L 03/26/21 05:30 03/26/21 05:45 03/26/21 06:00 Temperature Pulse Rate 104 H 104 H 102 H Pulse Rate [Radial] Respiratory Rate 27 H 29 H 25 H Blood Pressure O2 Sat by Pulse Oximetry 90 L 93 L 100 03/26/21 06:15 03/26/21 06:30 03/26/21 06:45 Temperature Pulse Rate 107 H 107 H 90 Pulse Rate [Radial] Respiratory Rate 34 H 27 H 31 H Blood Pressure O2 Sat by Pulse Oximetry 90 L 93 L 92 L 03/26/21 07:00 03/26/21 07:15 03/26/21 07:30 Temperature 97.8 F Pulse Rate 104 H 97 H 96 H Pulse Rate [Radial] Respiratory Rate 36 H 23 37 H Blood Pressure O2 Sat by Pulse Oximetry 90 L 93 L 95 03/26/21 07:45 03/26/21 08:00 03/26/21 08:08 Temperature Pulse Rate 98 H 101 H 96 H Pulse Rate [Radial] Respiratory Rate 26 H 26 H 21 Blood Pressure 148/70 148/70 O2 Sat by Pulse Oximetry 91 L 92 L 95 03/26/21 08:15 03/26/21 08:20 03/26/21 08:30 Temperature Pulse Rate 98 H 97 H Pulse Rate [Radial] Respiratory Rate 24 20 Blood Pressure O2 Sat by Pulse Oximetry 95 96 99 03/26/21 08:45 03/26/21 08:51 03/26/21 09:00 Temperature Pulse Rate 103 H 96 H Pulse Rate [Radial] Respiratory Rate 34 H 20 31 H Blood Pressure O2 Sat by Pulse Oximetry 92 L 97 03/26/21 09:15 03/26/21 09:30 03/26/21 09:45 Temperature Pulse Rate 87 73 71 Pulse Rate [Radial] Respiratory Rate 30 H 23 18 Blood Pressure O2 Sat by Pulse Oximetry 94 L 91 L 92 L 03/26/21 09:51 03/26/21 10:00 03/26/21 10:15 Temperature Pulse Rate 71 71 Pulse Rate [Radial] Respiratory Rate 22 33 H 29 H Blood Pressure O2 Sat by Pulse Oximetry 90 L 91 L 03/26/21 10:30 03/26/21 10:45 03/26/21 11:00 Temperature Pulse Rate 71 71 72 Pulse Rate [Radial] Respiratory Rate 28 H 25 H 16 Blood Pressure O2 Sat by Pulse Oximetry 92 L 87 L 93 L 03/26/21 11:15 03/26/21 11:30 03/26/21 11:45 Temperature Pulse Rate 73 72 69 Pulse Rate [Radial] Respiratory Rate 12 11 L 12 Blood Pressure O2 Sat by Pulse Oximetry 93 L 95 96 03/26/21 12:00 03/26/21 12:11 03/26/21 12:15 Temperature 97.6 F Pulse Rate 71 70 71 Pulse Rate [Radial] Respiratory Rate 11 L 20 13 Blood Pressure 119/66 119/66 O2 Sat by Pulse Oximetry 98 95 95 03/26/21 12:30 03/26/21 12:45 03/26/21 13:00 Temperature Pulse Rate 72 76 72 Pulse Rate [Radial] Respiratory Rate 16 31 H 25 H Blood Pressure O2 Sat by Pulse Oximetry 96 95 94 L 03/26/21 13:15 03/26/21 13:30 03/26/21 13:45 Temperature Pulse Rate 72 71 71 Pulse Rate [Radial] Respiratory Rate 28 H 29 H 21 Blood Pressure O2 Sat by Pulse Oximetry 87 L 92 L 74 L 03/26/21 14:00 03/26/21 14:15 03/26/21 14:30 Temperature Pulse Rate 72 71 71 Pulse Rate [Radial] Respiratory Rate 17 15 13 Blood Pressure O2 Sat by Pulse Oximetry 94 L 97 99 03/26/21 14:45 03/26/21 15:00 03/26/21 15:15 Temperature Pulse Rate 71 81 80 Pulse Rate [Radial] Respiratory Rate 12 32 H 39 H Blood Pressure O2 Sat by Pulse Oximetry 97 92 L 89 L 03/26/21 15:30 03/26/21 15:45 03/26/21 16:00 Temperature 97.5 F L Pulse Rate 75 77 79 Pulse Rate [Radial] Respiratory Rate 27 H 18 30 H Blood Pressure O2 Sat by Pulse Oximetry 94 L 93 L 95 03/26/21 16:15 12/01/21 16:30 03/26/21 16:45 Temperature Pulse Rate 75 72 75 Pulse Rate [Radial] Respiratory Rate 19 19 20 Blood Pressure 123/79 O2 Sat by Pulse Oximetry 95 100 98 03/26/21 17:00 03/26/21 17:15 03/26/21 17:18 Temperature Pulse Rate 78 70 72 Pulse Rate [Radial] Respiratory Rate 20 13 34 H Blood Pressure 123/79 O2 Sat by Pulse Oximetry 96 97 97 03/26/21 20:00 03/26/21 20:35 03/26/21 21:35 Temperature 98.3 F Pulse Rate 81 Pulse Rate [Radial] Respiratory Rate 25 H 20 22 Blood Pressure 126/69 O2 Sat by Pulse Oximetry 95 03/27/21 00:00 03/27/21 04:00 03/27/21 04:38 Temperature 98.0 F 98.0 F Pulse Rate 56 L 72 72 Pulse Rate [Radial] Respiratory Rate 13 15 Blood Pressure 103/54 117/56 O2 Sat by Pulse Oximetry 94 L 97 98 03/27/21 08:52 Temperature Pulse Rate Pulse Rate [Radial] Respiratory Rate 28 H Blood Pressure O2 Sat by Pulse Oximetry Labs: Laboratory Last Values WBC 12.1 X10^3/uL (3.6-10.0) H 03/27/21 05:15 RBC 4.53 X10^6/uL (4.7-6.0) L 03/27/21 05:15 Hgb 13.1 g/dL (13.5-18.0) L 03/27/21 05:15 Hct 39.7 % (42.0-54.0) L 03/27/21 05:15 MCV 87.7 fL (80.0-100.0) 03/27/21 05:15 MCH 28.9 pg (27.0-34.0) 03/27/21 05:15 MCHC 33.0 g/dL (33.0-35.0) 03/27/21 05:15 RDW 16.3 % (11.6-16.5) 03/27/21 05:15 Plt Count 149 X10^3/uL (150.0-450.0) L 03/27/21 05:15 Plt Count Comment Decreased (ADEQUATE) 03/27/21 05:15 MPV 9.0 fL (7.4-11.0) 03/27/21 05:15 Neut % (Auto) 91.5 % (42.0-75.0) H 03/27/21 05:15 Lymph % (Auto) 6.0 % (21.0-51.0) L 03/27/21 05:15 Sabine % (Auto) 2.4 % (0.0-13.0) 03/27/21 05:15 Eos % (Auto) 0.0 % (0.9-2.9) L 03/27/21 05:15 Baso % (Auto) 0.1 % (0.2-1.0) L 03/27/21 05:15 Neut # (Auto) 11.0 x10^3/uL (2.2-4.8) H 03/27/21 05:15 Lymph # (Auto) 0.7 X10^3/uL (1.3-2.9) L 03/27/21 05:15 Sabine # (Auto) 0.3 x10^3/uL (0.3-0.8) 03/27/21 05:15 Eos # (Auto) 0.0 x10^3/uL (0.0-0.2) 03/27/21 05:15 Baso # (Auto) 0.0 X10^3/uL (0.0-0.1) 03/27/21 05:15 Absolute Nucleated RBC 0.1 /100WBC 03/27/21 05:15 Total Counted 100 03/27/21 05:15 Neutrophils % (Manual) 93 % (39-76) H 03/27/21 05:15 Lymphocytes % (Manual) 7 % (13-43) L 03/27/21 05:15 Plt Morphology Comment Normal (NORMAL) 03/27/21 05:15 RBC Morphology Normal (NORMAL) 03/27/21 05:15 D-Dimer 1.14 ug/ml (0.0-0.57) H* 03/25/21 01:21 Sample Site Lrad 03/25/21 01:45 ABG pH 7.380 (7.35-7.45) 03/25/21 01:45 ABG pCO2 53.0 mmHg (35.0-45.0) H* 03/25/21 01:45 ABG pO2 65.0 mmHg (80.0-100.0) L 03/25/21 01:45 ABG HCO3 31.4 mmol/L (22-26) H* 03/25/21 01:45 ABG O2 Saturation 92.0 % (90-100) 03/25/21 01:45 ABG Base Excess 5.0 mmol/L (-2.0-2.0) H 03/25/21 01:45 Anselmo Test Pos 03/25/21 01:45 A-a Gradient 125.0 mmHg 03/25/21 01:45 FiO2 36.0 03/25/21 01:45 Blood Gas Comments Kelly well ms 03/25/21 01:45 Sodium 140 mmol/L (136-145) 03/27/21 05:15 Corrected Sodium 142 mmol/L (136-145) 03/27/21 05:15 Potassium 4.6 mmol/L (3.5-5.1) 03/27/21 05:15 Chloride 103 mmol/L (98-107) 03/27/21 05:15 Carbon Dioxide 30.2 mmol/L (21-32) 03/27/21 05:15 BUN 42 mg/dL (7-18) H 03/27/21 05:15 Creatinine 1.50 mg/dL (0.70-1.30) H 03/27/21 05:15 Est GFR (MDRD) Af Amer 58 (>60) L 03/27/21 05:15 Est GFR (MDRD) Non-Af 48 (>60) L 03/27/21 05:15 Glucose 176 mg/dL (65-99) H 03/27/21 05:15 Calcium 8.1 mg/dL (8.5-10.1) L 03/27/21 05:15 Corrected Calcium 9.0 mg/dL (8.5-10.1) 03/27/21 05:15 Total Bilirubin 0.20 mg/dL (0.2-1.0) 03/27/21 05:15 AST 22 Units/L (15-37) 03/27/21 05:15 ALT 27 Units/L (12-78) 03/27/21 05:15 Alkaline Phosphatase 60 Units/L (46-116) 03/27/21 05:15 Creatine Kinase 108 Units/L (39-308) 03/25/21 04:50 CK-MB (CK-2) 2.8 ng/mL (0-4.0) 03/25/21 04:50 CK/CKMB % Calc 2.6 % (<4) 03/25/21 04:50 Troponin I < 0.02 ng/mL (0-1.5) 03/25/21 04:50 B-Natriuretic Peptide 176 pg/mL (0-79) H 03/25/21 01:21 Total Protein 7.2 g/dL (6.4-8.2) 03/27/21 05:15 Albumin 2.9 g/dL (3.4-5.0) L 03/27/21 05:15 Globulin 4.3 g/dL (2.5-4.5) 03/27/21 05:15 Albumin/Globulin Ratio 0.7 Ratio (1.1-2.1) L 03/27/21 05:15 SARS-CoV-2 (PCR) Negative (NEGATIVE) 03/25/21 01:23 Influenza Type A (PCR) Negative (NEGATIVE) 03/25/21 01:23 Influenza Type B (PCR) Negative (NEGATIVE) 03/25/21 01:23 RSV (PCR) Negative (NEGATIVE) 03/25/21 01:23 Reason For Visit: COPD EXACERBATION, HYPOXIA Discharge Date Discharge Date: 03/27/21 Discharge Diagnosis All Active Problems (Updated 03/25/21 @ 07:09 by Josefina Saunders) Aneurysm of infrarenal abdominal aorta (Acute) Diverticulosis of colon (Acute) Abdominal pain (Acute) Hypocalcemia (Acute) SOB (shortness of breath) (Acute) Bronchitis (Acute) Laceration of finger of left hand (Acute) Finger fracture, left (Acute) Hypoxia (Acute) COPD exacerbation (Acute) Mild congestive heart failure (Acute) Plan of Treatment: Continue with present treatment and follow up plan. Pt is to keep follow up appointment as instructed and take medications as ordered. Discharge Medications Discharge Medications: No Known Drug Allergies Allergy (Verified 06/02/18 17:31) CONTINUE taking the following medications albuterol sulfate 90 mcg INHALATION PRN PRN 03/25/21 [History] alprazolam 0.5 mg PO Q6H PRN 03/25/21 [History] famotidine 20 mg PO BID 03/25/21 [History] furosemide 40 mg PO DAILY 03/25/21 [History] ipratropium-albuterol 2.5 ml INHALATION PRN PRN 03/25/21 [History] oxycodone-acetaminophen 1 tab PO BID 03/25/21 [History] potassium chloride 20 meq PO DAILY 03/25/21 [History] simvastatin 10 mg PO DAILY 03/25/21 [History] tizanidine 4 mg PO BID 03/25/21 [History] New Prescriptions prednisone 20 mg PO BID 3 Days #6 tab 03/27/21 [Rx] Follow up and Referral Follow Up: 1 Week Discharge Disposition Assessment: Stable no acute distress noted at discharge. Discharge Disposition: Home Discharge Condition: Stable Discharge Plan Discharge Plan Hospital Course: Pt is a 81 year old male past medical history of COPD, CABG, Hypertension, admitted for COPD exacerbation and CHF exacerbation. His hospital/treatment course included: Antibiotics: Rocephin, Azithromycin, IV Lasix 40mg daily, IV Solumedrol 80mg q8h, scheduled bronchodilators. Supplemental oxygen was weaned down to 3L nasal cannula. Pt responded well to treatments and reported significant improvement in his breathing. He was discharged home with supplemental oxygen, home health, and instructed to complete prednisone course. Discharged in stable condition and instructed to follow up with pcp in 3-5 days. Patient Disposition: HOME HEALTH SERVICE Condition: Stable Health Concerns: Post Hospitalization: new medications and changes needed to prevent readmission or further decline. Pt educated and given instructions on all concerns. Care Plan Goals: Problem: Respiratory Complications Goal: Improved Uncomplicated Respiratory Status Instructions: Follow provided instructions. Follow up with primary physician as directed. Contact primary care physician or report to the closest Emergency Room if condition worsens. Plan of Treatment: Continue with present treatment and follow up plan. Pt is to keep follow up appointment as instructed and take medications as ordered. Assessment: Stable no acute distress noted at discharge. Prescriptions: Continued metoprolol succinate 100 MG tablet extended release 24 hr 100 mg PO DAILY RF: 0 aspirin 325 MG tablet,delayed release (DR/EC) 325 mg PO DAILY RF: 0 amlodipine 10 MG tablet 10 mg PO DAILY RF: 0 ipratropium-albuterol 0.5 mg-3 mg(2.5 mg base)/3 mL solution for nebulization 2.5 ml INHALATION PRN PRNRF: 0 potassium chloride 20 mEq tablet,ER particles/crystals 20 meq PO DAILY RF: 0 albuterol sulfate 90 mcg/actuation HFA aerosol inhaler 90 mcg INHALATION PRN PRNRF: 0 simvastatin 10 mg tablet 10 mg PO DAILY RF: 0 furosemide 40 mg tablet 40 mg PO DAILY RF: 0 tizanidine 4 mg tablet 4 mg PO BID RF: 0 alprazolam 0.5 mg tablet 0.5 mg PO Q6H PRNRF: 0 famotidine 20 mg tablet 20 mg PO BID RF: 0 oxycodone-acetaminophen 10-325 mg tablet 1 tab PO BID RF: 0 Follow ups/Referrals Follow ups/Referrals: John Mcnair [Primary Care Provider] - 04/02/21 1:00 pm Instructions Instructions: Fall Prevention in the Home, Adult, [id number], Shortness of Breath, Adult, [id number], Home Oxygen Use, Adult, Steps to Quit Smoking, Easy -to-Read, Hypoxia, Heart Failure Action Plan, Chronic Obstructive Pulmonary Disease Exacerbation, [id number], Health Risks of Smoking, Tobacco Use Disorder Stand Alone Forms: Excuse From Work or School, Precautions for COVID19, [facility], Patient Portal, Social Distancing
[2021-03-27 13:47] VITALS: BP 137/73
== END 2021-03-27 13:30 | disposition home health service (06) | DRG 191 ==
LOC: ER 00:55 → ICU 04:30
PROVIDERS: ADMIT Internal Medicine; ATTEND Family Medicine
DX: I50.9 Heart failure, unspecified; Z20.822 Contact with and (suspected) exposure to COVID-19; R09.02 Hypoxemia; J44.1 Chronic obstructive pulmonary disease with (acute) exacerbation; J90 Pleural effusion, not elsewhere classified; R06.02 Shortness of breath

== ENCOUNTER 2021-05-12 10:40 | Inpatient (IN) ==
[2021-05-12 10:52] LABS: ABG BASE EXCESS 8.2 mmol/L (-2.0-2.0)
[2021-05-12 10:53] LABS: ABG HCO3 33.4 mmol/L (22-26)
[2021-05-12 10:54] LABS: ABG ALLEN TEST POS
--- NOTE | 2021-05-12 10:58 | DR.SOBA ---
HPI Time Seen Time Seen by Provider: 05/12/21 10:53 Complaints Chief Complaint Doctors Comments: 81 y/o male brought in by son for evaluation. Was seen here 6 days ago, dx'd with Covid then. Was doing better for few days, started feeling bad again 2 days ago. Having worsening cough, dyspnea. No recent fever, denies chest pain. Has h/o COPD, wears home O2. Pulse ox in the 70's this am. Cough not very productive. Has had few episodes of nausea,vomiting. Breathing worse with exertion, nothing makes it better. COVID-19 Coronavirus risk:travel/contact w/high risk person: No Has patient experienced Coronavirus symptoms: Yes Coronavirus symptoms experienced: Coughing and Shortness of Breath Reviewed Nurses Notes Reviewed: Yes Source History Provided: Patient and Family Member Mode of Arrival Mode of Arrival: Wheelchair PMH PMH Past Medical History: COPD and Hypertension Past Surgical History: Yes Surgical History: CABG/Valve Surgery Family History Family Medical History: Hypertension Social History Do you use any recreational Drugs:: No ROS Review of Systems Constitutional: Weakness Eyes: No Symptoms Reported ENTM: No Symptoms Reported Respiratoy: Non-Productive Cough and Short of Breath Cardiovascular: No Symptoms Reported Gastrointestinal/Abdominal: No Symptoms Reported Genitourinary: No Symptoms Reported Neurological: Weakness Musculoskeletal: No Symptoms Reported Integumentary: No Symptoms Reported Hematologic/Lymphatic: No Symptoms Reported Psychiatric: No Symptoms Reported All Other Systems: Reviewed and Negative PE Vital Signs Vitals: Temperature 97.0 F Pulse Rate 103 Respiratory Rate 27 Blood Pressure [Left Arm] 142/78 Blood Pressure 121/57 O2 Sat by Pulse Oximetry 92 General Limitations: No Limitations General Appearance: Alert and In No Apparent Distress Head Head Exam: Normal Inspection Eyes Eye exam: Normal Appearance, PERRL and EOMI ENT ENT Exam: Other (dry tongue) Neck Neck Exam: Normal Inspection and Full ROM Chest Chest Inspection: Normal Inspection Respiratory Respiratory Exam: negative Accessory Muscle Use and Respiratory Distress Respiratory Exam: Bilateral: Rales and Bilateral: Rhonchi Cardiovascular Cardiovascular Exam: Regular Rate, Normal Rhythm, Tachycardia and Normal Heart Sounds Abdominal Exam Abdominal Exam: Normal Inspection, Normal Bowel Sounds and Soft; negative Tenderness Extremities Extremities Exam: Normal Inspection; negative Edema Back Back Exam: Normal Inspection Neurologic Neurological Exam: Alert, Oriented X3 and CN II-XII Intact; negative Motor Sensory Deficit Psychiatric Psychiatric Exam: Normal Affect Skin Skin Exam: Warm and Dry MDM Differential Diagnosis Differential Diagnosis: CHF, COPD and Pneumonia Differential Diagnosis Comment:: Covid pneumonia COURSE Treatment Treatment: 81 y/o male dx'd with covid 6 days ago, was treated with steroids at home. Better for a few days, now worsening. W/u initiated. Given IV fluids. 1325 - CXR now with bilateral opacifications, c/w covid pneumonia. WBC elevated to 20+K, but has been on steroids. + slight worsening of renal numbers, probable degree of hydration. + abnormal troponin, 120. EKG without obvious ischemic changes. Pt to be admitted. Given IV rocephin, IV solu-medrol here. Discussed with Dr Mcnair, will admit. Pt's O2 difficult to control on N/C, changed to Bipap. Havin increasing anxiety,given IV ativan. BNP elevated, will give lasix 20 mg IV here in the ER. ROR Labs Reviewed Laboratory Results Reviewed?: Yes Result Diagrams: 05/12/21 11:00 05/12/21 11:00 Laboratory: WBC 21.5 X10^3/uL (3.6-10.0) H 05/12/21 11:00 RBC 5.30 X10^6/uL (4.7-6.0) 05/12/21 11:00 Hgb 15.2 g/dL (13.5-18.0) 05/12/21 11:00 Hct 46.2 % (42.0-54.0) 05/12/21 11:00 MCV 87.2 fL (80.0-100.0) 05/12/21 11:00 MCH 28.7 pg (27.0-34.0) 05/12/21 11:00 MCHC 32.9 g/dL (33.0-35.0) L 05/12/21 11:00 RDW 18.4 % (11.6-16.5) H 05/12/21 11:00 Plt Count 156 X10^3/uL (150.0-450.0) 05/12/21 11:00 Plt Count Comment Adequate (ADEQUATE) 05/12/21 11:00 MPV 9.2 fL (7.4-11.0) 05/12/21 11:00 Neut % (Auto) 86.3 % (42.0-75.0) H 05/12/21 11:00 Lymph % (Auto) 8.5 % (21.0-51.0) L 05/12/21 11:00 [place] % (Auto) 4.9 % (0.0-13.0) 05/12/21 11:00 Eos % (Auto) 0.0 % (0.9-2.9) L 05/12/21 11:00 Baso % (Auto) 0.3 % (0.2-1.0) 05/12/21 11:00 Neut # (Auto) 18.5 x10^3/uL (2.2-4.8) H 05/12/21 11:00 Lymph # (Auto) 1.8 X10^3/uL (1.3-2.9) 05/12/21 11:00 [place] # (Auto) 1.1 x10^3/uL (0.3-0.8) H 05/12/21 11:00 Eos # (Auto) 0.0 x10^3/uL (0.0-0.2) 05/12/21 11:00 Baso # (Auto) 0.1 X10^3/uL (0.0-0.1) 05/12/21 11:00 Absolute Nucleated RBC 0.1 /100WBC 05/12/21 11:00 Total Counted 100 05/12/21 11:00 Neutrophils % (Manual) 78 % (39-76) H 05/12/21 11:00 Band Neutrophils % 6 % (0-10) 05/12/21 11:00 Lymphocytes % (Manual) 12 % (13-43) L 05/12/21 11:00 Monocytes % (Manual) 4 % (4-9) 05/12/21 11:00 Plt Morphology Comment Normal (NORMAL) 05/12/21 11:00 RBC Morphology Abnormal (NORMAL) 05/12/21 11:00 Anisocytosis Slight A 05/12/21 11:00 Sample Site Rr 05/12/21 10:51 ABG pH 7.450 (7.35-7.45) 05/12/21 10:51 ABG pCO2 48.0 mmHg (35.0-45.0) H 05/12/21 10:51 ABG pO2 43.0 mmHg (80.0-100.0) L* 05/12/21 10:51 ABG HCO3 33.4 mmol/L (22-26) H* 05/12/21 10:51 ABG O2 Saturation 81.0 % (90-100) L* 05/12/21 10:51 ABG Base Excess 8.2 mmol/L (-2.0-2.0) H 05/12/21 10:51 Asnelmo Test Pos 05/12/21 10:51 A-a Gradient 97.0 mmHg 05/12/21 10:51 FiO2 28.0 05/12/21 10:51 Blood Gas Comments Kelly well. sd 05/12/21 10:51 Sodium 144 mmol/L (136-145) 05/12/21 11:00 Corrected Sodium 148 mmol/L (136-145) H 05/12/21 11:00 Potassium 4.5 mmol/L (3.5-5.1) 05/12/21 11:00 Chloride 103 mmol/L (98-107) 05/12/21 11:00 Carbon Dioxide 32.1 mmol/L (21-32) H 05/12/21 11:00 BUN 49 mg/dL (7-18) H 05/12/21 11:00 Creatinine 2.08 mg/dL (0.70-1.30) H 05/12/21 11:00 Est GFR (MDRD) Af Amer 40 (>60) L 05/12/21 11:00 Est GFR (MDRD) Non-Af 33 (>60) L 05/12/21 11:00 Glucose 260 mg/dL (65-99) H 05/12/21 11:00 Lactic Acid 3.1 mmol/L (0.4-2.0) H 05/12/21 11:00 Calcium 9.0 mg/dL (8.5-10.1) 05/12/21 11:00 Corrected Calcium 10.4 mg/dL (8.5-10.1) H 05/12/21 11:00 Total Bilirubin 0.90 mg/dL (0.2-1.0) 05/12/21 11:00 AST 30 Units/L (15-37) 05/12/21 11:00 ALT 30 Units/L (12-78) 05/12/21 11:00 Alkaline Phosphatase 106 Units/L (46-116) 05/12/21 11:00 Creatine Kinase 204 Units/L (39-308) 05/12/21 11:00 CK-MB (CK-2) 2.5 ng/mL (0-4.0) 05/12/21 11:00 CK/CKMB % Calc 1.2 % (<4) 05/12/21 11:00 Troponin I High Sens 120.5 ng/L (4.0-60.0) H* 05/12/21 11:00 B-Natriuretic Peptide 648 pg/mL (0-79) H* 05/12/21 11:00 Total Protein 7.1 g/dL (6.4-8.2) 05/12/21 11:00 Albumin 2.2 g/dL (3.4-5.0) L 05/12/21 11:00 Globulin 4.9 g/dL (2.5-4.5) H 05/12/21 11:00 Albumin/Globulin Ratio 0.4 Ratio (1.1-2.1) L 05/12/21 11:00 SARS-CoV-2 (PCR) Positive (NEGATIVE) A 05/12/21 11:02 Influenza Type A (PCR) Negative (NEGATIVE) 05/12/21 11:02 Influenza Type B (PCR) Negative (NEGATIVE) 05/12/21 11:02 RSV (PCR) Negative (NEGATIVE) 05/12/21 11:02 Other Results Comments: ABG - pCO2 48, pO2 43 on 2L. EKG Rate: 122 Perrin: Normal Rhythm: ST Block: None Hypertrophy: None ST: Nonsp Opioid Opioid Risk Tool Age (Gautam box if 16-45): No History of Preadolescent Sexual Abuse: No Total: 0 Total Score Risk Category: Low Risk Copyright: [facility] predicting aberrant behaviors Diagnosis Discharge Problem: Pneumonia due to COVID-19 virus, Hypoxia
[2021-05-12] MEDS ORDERED: NS 500 ML IV 500 ML IV ONE (11:08)
[2021-05-12] MEDS ORDERED: NS 1,000 ML IV 1,000 ML ONE (11:09)
[2021-05-12 11:25] LABS: BASOPHILS # (AUTO) 0.1 X10^3/uL (0.0-0.1); BASOPHILS % (AUTO) 0.3 % (0.2-1.0); HEMATOCRIT 46.2 % (42.0-54.0); HEMOGLOBIN 15.2 g/dL (13.5-18.0); LYMPHOCYTES # (AUTO) 1.8 X10^3/uL (1.3-2.9); LYMPHOCYTES % (AUTO) 8.5 % (21.0-51.0); MEAN CORPUSCULAR HEMOGLOBIN 28.7 pg (27.0-34.0); MEAN CORPUSCULAR HGB CONC 32.9 g/dL (33.0-35.0); MEAN CORPUSCULAR VOLUME 87.2 fL (80.0-100.0); MEAN PLATELET VOLUME 9.2 fL (7.4-11.0); MONOCYTES # (AUTO) 1.1 x10^3/uL (0.3-0.8); MONOCYTES % (AUTO) 4.9 % (0.0-13.0); NEUTROPHILS # (AUTO) 18.5 x10^3/uL (2.2-4.8); NEUTROPHILS % (AUTO) 86.3 % (42.0-75.0); RED CELL DISTRIBUTION WIDTH 18.4 % (11.6-16.5); WHITE BLOOD COUNT 21.5 X10^3/uL (3.6-10.0)
[2021-05-12 11:41] LABS: CARBON DIOXIDE 32.1 mmol/L (21-32); CREATININE 2.08 mg/dL (0.70-1.30); TOTAL PROTEIN 7.1 g/dL (6.4-8.2)
[2021-05-12] MEDS ORDERED: SOLU-Medrol 125 MG VIAL ONE (11:45)
[2021-05-12] MEDS ORDERED: SOLU-Medrol 125 MG VIAL IVP ONE (11:45)
[2021-05-12 11:46] LABS: LACTIC ACID 3.1 mmol/L (0.4-2.0)
[2021-05-12] MEDS ORDERED: ROCEPHIN VIAL 500 MG 500 MG in NS 25 ML IV 25 ML IV ONE (11:46)
[2021-05-12] MEDS ORDERED: ROCEPHIN 1 GRAM IV PREMIX 1 G/50 ML IV.SOLN. IV ONE (11:46)
--- NOTE | 2021-05-12 11:47 | RAD ---
HISTORYPt c/o increase in shortness of breath since Wednesday. He was diagnosed 6 days ago with covid. Pt has been on O2 x approx 1 month s/p being diagnosed with bronchitis. .br PMH: COPD, HTN PSH: CABG/VALVE, ORTHOSTUDYCHEST, 1 [id number] cardiomegaly. Patchy multifocal bilateral pulmonary opacities are new from prior. No sizable pleural effusion or visible pneumothorax. No acute osseous finding. Sternotomy.IMPRESSIONMultifocal bilateral pulmonary opacities, new from prior.Electronically signed by: Perfecto Owens (May 12, 2021 11:46:22)
[2021-05-12 11:53] LABS: BAND NEUTROPHILS % 6 % (0-10); PLATELET MORPHOLOGY COMMENT NORMAL (NORMAL)
[2021-05-12 11:54] LABS: ANISOCYTOSIS SLIGHT
[2021-05-12] MEDS: ROCEPHIN 1 GRAM IV PREMIX 1 G/50 ML IV.SOLN. IV SCH (11:54)
[2021-05-12 12:04] LABS: CKMB % 1.2 % (<4); CREATINE KINASE MB 2.5 ng/mL (0-4.0)
[2021-05-12 12:08] LABS: COR CA(FOR HYPOALB) 10.4 mg/dL (8.5-10.1)
[2021-05-12 12:09] LABS: ALBUMIN 2.2 g/dL (3.4-5.0)
[2021-05-12] MEDS ORDERED: ATIVAN INJ 2 MG VIAL IVP ONE (13:23)
[2021-05-12] MEDS ORDERED: ATIVAN INJ 2 MG VIAL ONE (13:26)
[2021-05-12] MEDS ORDERED: LASIX IVP ONE (13:28)
[2021-05-12] MEDS ORDERED: LASIX ONE (13:49)
[2021-05-12] MEDS ORDERED: REMDESIVIR 200 MG in NS 250 ML IV 250 ML IV ONE (14:09)
[2021-05-12] MEDS ORDERED: ROCEPHIN 1 GRAM IV PREMIX 1 G/50 ML IV.SOLN. IV SCH (14:40)
[2021-05-12] MEDS ORDERED: SOLU-Medrol 40 MG VIAL IVP SCH (14:40)
[2021-05-12 14:59] VITALS: BMI 29.6
[2021-05-12] MEDS: NS 1,000 ML IV 1,000 ML IV SCH (15:30)
[2021-05-12 15:35] LABS: CKMB % 1.7 % (<4)
[2021-05-12] MEDS ORDERED: TYLENOL 325 MG TAB PO PRN (19:14)
[2021-05-12] MEDS ORDERED: PULMICORT NEB TX 0.5 MG NEB ONE (19:59)
[2021-05-12] MEDS ORDERED: BROVANA ONE (20:00)
[2021-05-12] MEDS ORDERED: TOPROL XL PO ONE (20:02)
[2021-05-12] MEDS: PEPCID TAB 40 MG PO SCH (20:07)
[2021-05-12] MEDS: ZINC SULFATE PO SCH (20:08)
[2021-05-12] MEDS: XANAX PO PRN (20:08)
[2021-05-12] MEDS: TOPROL XL PO SCH (20:08)
[2021-05-12] MEDS: ROBITUSSIN DM PO PRN (20:08)
[2021-05-12] MEDS: LOVENOX INJ 30 MG SYR SC SCH (20:08)
[2021-05-12] MEDS ORDERED: BROVANA IN SCH (21:00)
[2021-05-12] MEDS ORDERED: PULMICORT NEB TX 0.5 MG NEB SCH ×2 (21:00)
[2021-05-12] MEDS: BROVANA IN SCH (21:12)
[2021-05-12] MEDS: PULMICORT NEB TX 0.5 MG NEB SCH (21:12)
[2021-05-12] MEDS: SOLU-Medrol 125 MG VIAL IVP SCH (21:16)
[2021-05-12 21:20] LABS: CKMB % 1.7 % (<4); CREATINE KINASE MB 2.4 ng/mL (0-4.0)
[2021-05-13 03:12] LABS: BASOPHILS # (AUTO) 0.1 X10^3/uL (0.0-0.1); BASOPHILS % (AUTO) 0.6 % (0.2-1.0); HEMATOCRIT 40.4 % (42.0-54.0); HEMOGLOBIN 13.4 g/dL (13.5-18.0); LYMPHOCYTES # (AUTO) 1.3 X10^3/uL (1.3-2.9); MEAN CORPUSCULAR HEMOGLOBIN 28.4 pg (27.0-34.0); MEAN CORPUSCULAR VOLUME 86.1 fL (80.0-100.0); MONOCYTES # (AUTO) 0.4 x10^3/uL (0.3-0.8); NEUTROPHILS # (AUTO) 11.3 x10^3/uL (2.2-4.8); NEUTROPHILS % (AUTO) 86.4 % (42.0-75.0); RED BLOOD COUNT 4.69 X10^6/uL (4.7-6.0); RED CELL DISTRIBUTION WIDTH 18.3 % (11.6-16.5)
[2021-05-13] MEDS: NS 1,000 ML IV 1,000 ML IV SCH ×3 (03:20→22:26)
[2021-05-13 03:24] LABS: ALBUMIN 1.7 g/dL (3.4-5.0); CARBON DIOXIDE 32.4 mmol/L (21-32); COR CA(FOR HYPOALB) 9.8 mg/dL (8.5-10.1); CREATININE 1.51 mg/dL (0.70-1.30); TOTAL PROTEIN 5.4 g/dL (6.4-8.2)
[2021-05-13 03:25] LABS: CKMB % 2.6 % (<4); CREATINE KINASE MB 2.3 ng/mL (0-4.0)
[2021-05-13] MEDS: SOLU-Medrol 125 MG VIAL IVP SCH ×3 (05:10→21:09)
--- NOTE | 2021-05-13 07:38 | RAD ---
HISTORYCOVID+STUDYCHEST, 1 [id number]/2022.TECHNIQUEAP view of the chestFINDINGSStatus post median sternotomy. The cardiac silhouette is stably enlarged. Mediastinal contours appear stable. No significant change in bilateral airspace and interstitial opacities. Left costophrenic sulcus is not completely within the field of view. No discernible pleural effusion or pneumothorax. Lungs are hyperexpanded.IMPRESSIONCOPD with stable bilateral airspace and interstitial opacities consistent with COVID 19 pneumonia.Electronically signed by: Guido Clifton (May 13, 2021 07:37:09)
[2021-05-13] MEDS ORDERED: TOPROL XL PO ONE (08:16)
[2021-05-13] MEDS: LASIX PO SCH (08:50)
[2021-05-13] MEDS: ECOTRIN TAB 325 MG PO SCH (08:50)
[2021-05-13] MEDS: TOPROL XL PO SCH (08:50)
[2021-05-13] MEDS: LOVENOX INJ 30 MG SYR SC SCH ×2 (08:51→20:01)
[2021-05-13] MEDS: PEPCID TAB 40 MG PO SCH ×2 (08:51→20:01)
[2021-05-13] MEDS: REMDESIVIR 100 MG in NS 250 ML IV 250 ML IV SCH (08:51)
[2021-05-13] MEDS: NORVASC TAB 10 MG PO SCH (08:51)
[2021-05-13] MEDS: ZINC SULFATE PO SCH ×2 (08:52→20:01)
[2021-05-13] MEDS: ZOCOR TAB 10 MG PO SCH (08:52)
[2021-05-13] MEDS: ROCEPHIN 1 GRAM IV PREMIX 1 G/50 ML IV.SOLN. IV SCH (08:52)
[2021-05-13] MEDS: XANAX PO PRN ×3 (08:53→20:01)
[2021-05-13] MEDS ORDERED: TOPROL XL PO SCH (09:00)
--- NOTE | 2021-05-13 09:00 | DR.H&P ---
H&P History & Physical for Day of: H&P Date: 05/12/21 Chief Complaint Chief Complaint: Shortness of breath Fever, chills, generalized weakness Allergies Allergies Allergy/AdvReac Type Severity Reaction Status Date / Time No Known Drug Allergies Allergy Verified 06/02/18 17:31 History of Present Illness History of Present Illness: Pt is a 81 year old male past medical history of COPD, CABG, HFrEF, Hypertension, presenting with fever, chills, and progressively worsening shortness of breath for the past 3-4 days. Pt reports his family also tested positive for COVID-19. He has received COVID-19 vaccine. Pt also reports generalized weakness. Labs/imaging: Wbc 21.5, Hgb 15.2, Plt 156, Na 144, K 4.5, Creatinine 2.08, Glucose 260, Troponin 120, BNP 648, CRP 295, ABG: pH 7.45, pCO2 48, pO2 43, HCO3 33, 81% on FiO2 28%. CXR: Stable cardiomegaly. Patchy multifocal bilateral pulmonary opacities are new from prior. Pt admitted for COVID-19 pneumonia with hypoxia and acute respiratory failure. He is currently requiring BiPAP support. Pt was started on pneumonia protocol that includes: IVF NS@80ml/h, Remdesivir, Solumedrol 80mg q8h, scheduled Bronchodilators, Antibiotics: IV Rocephin, immune supporting supplements, supplemental O2, Lovenox 30mg BID, SSI, I/S, Respiratory therapy consult, Pneumonia protocol. Troponin mildly elevated, will trend, Ekg no STEMI. Restart home medications. Continue to wean/titrate supplemental oxygen as indicated. Will continue to closely monitor and follow up labs/imaging. Time spent on clinical assessment, reviewing labs and imaging, decision making, and documentation greater than 45 minutes. Past Medical History Past Medical History: COPD and Hypertension Past Surgical History Surgical History: CABG/Valve Surgery Family History Family Medical History: Hypertension Social History Does patient currently use any type of tobacco product: No Have you used tobacco products in the last 12 months: No Type of Tobacco Use: Cigarettes Does any household member use tobacco: No Alcohol Use: None Medications Home Medications: No Known Drug Allergies Allergy (Verified 06/02/18 17:31) CONTINUE taking the following medications benzonatate 100 mg PO TID PRN 05/12/21 [History] [id number] [Trelegy Ellipta] 1 inh INHALATION DAILY 05/12/21 [History] prednisone 10 mg PO DAILY 05/12/21 [History] Labs Result Diagrams: 05/13/21 02:50 05/13/21 02:50 Labs: Laboratory WBC 13.0 X10^3/uL (3.6-10.0) H D 05/13/21 02:50 RBC 4.69 X10^6/uL (4.7-6.0) L 05/13/21 02:50 Hgb 13.4 g/dL (13.5-18.0) L 05/13/21 02:50 Hct 40.4 % (42.0-54.0) L 05/13/21 02:50 MCV 86.1 fL (80.0-100.0) 05/13/21 02:50 MCH 28.4 pg (27.0-34.0) 05/13/21 02:50 MCHC 33.0 g/dL (33.0-35.0) 05/13/21 02:50 RDW 18.3 % (11.6-16.5) H 05/13/21 02:50 Plt Count 131 X10^3/uL (150.0-450.0) L 05/13/21 02:50 Plt Count Comment Adequate (ADEQUATE) 05/12/21 11:00 MPV 9.0 fL (7.4-11.0) 05/13/21 02:50 Neut % (Auto) 86.4 % (42.0-75.0) H 05/13/21 02:50 Lymph % (Auto) 10.0 % (21.0-51.0) L 05/13/21 02:50 [place] % (Auto) 3.0 % (0.0-13.0) 05/13/21 02:50 Eos % (Auto) 0.0 % (0.9-2.9) L 05/13/21 02:50 Baso % (Auto) 0.6 % (0.2-1.0) 05/13/21 02:50 Neut # (Auto) 11.3 x10^3/uL (2.2-4.8) H 05/13/21 02:50 Lymph # (Auto) 1.3 X10^3/uL (1.3-2.9) 05/13/21 02:50 [place] # (Auto) 0.4 x10^3/uL (0.3-0.8) 05/13/21 02:50 Eos # (Auto) 0.0 x10^3/uL (0.0-0.2) 05/13/21 02:50 Baso # (Auto) 0.1 X10^3/uL (0.0-0.1) 05/13/21 02:50 Absolute Nucleated RBC 0.1 /100WBC 05/13/21 02:50 Total Counted 100 05/12/21 11:00 Neutrophils % (Manual) 78 % (39-76) H 05/12/21 11:00 Band Neutrophils % 6 % (0-10) 05/12/21 11:00 Lymphocytes % (Manual) 12 % (13-43) L 05/12/21 11:00 Monocytes % (Manual) 4 % (4-9) 05/12/21 11:00 Plt Morphology Comment Normal (NORMAL) 05/12/21 11:00 RBC Morphology Abnormal (NORMAL) 05/12/21 11:00 Anisocytosis Slight A 05/12/21 11:00 Sample Site Rr 05/12/21 10:51 ABG pH 7.450 (7.35-7.45) 05/12/21 10:51 ABG pCO2 48.0 mmHg (35.0-45.0) H 05/12/21 10:51 ABG pO2 43.0 mmHg (80.0-100.0) L* 05/12/21 10:51 ABG HCO3 33.4 mmol/L (22-26) H* 05/12/21 10:51 ABG O2 Saturation 81.0 % (90-100) L* 05/12/21 10:51 ABG Base Excess 8.2 mmol/L (-2.0-2.0) H 05/12/21 10:51 Anselmo Test Pos 05/12/21 10:51 A-a Gradient 97.0 mmHg 05/12/21 10:51 FiO2 28.0 05/12/21 10:51 Blood Gas Comments Kelly well. sd 05/12/21 10:51 Sodium 146 mmol/L (136-145) H 05/13/21 02:50 Corrected Sodium 148 mmol/L (136-145) H 05/13/21 02:50 Potassium 4.5 mmol/L (3.5-5.1) 05/13/21 02:50 Chloride 108 mmol/L (98-107) H 05/13/21 02:50 Carbon Dioxide 32.4 mmol/L (21-32) H 05/13/21 02:50 BUN 49 mg/dL (7-18) H 05/13/21 02:50 Creatinine 1.51 mg/dL (0.70-1.30) H 05/13/21 02:50 Est GFR (MDRD) Af Amer 57 (>60) L 05/13/21 02:50 Est GFR (MDRD) Non-Af 47 (>60) L 05/13/21 02:50 Glucose 199 mg/dL (65-99) H 05/13/21 02:50 Lactic Acid 1.8 mmol/L (0.4-2.0) 05/12/21 17:05 Calcium 8.0 mg/dL (8.5-10.1) L 05/13/21 02:50 Corrected Calcium 9.8 mg/dL (8.5-10.1) 05/13/21 02:50 Total Bilirubin 0.70 mg/dL (0.2-1.0) 05/13/21 02:50 AST 24 Units/L (15-37) 05/13/21 02:50 ALT 27 Units/L (12-78) 05/13/21 02:50 Alkaline Phosphatase 84 Units/L (46-116) 05/13/21 02:50 Creatine Kinase 89 Units/L (39-308) 05/13/21 02:50 CK-MB (CK-2) 2.3 ng/mL (0-4.0) 05/13/21 02:50 CK/CKMB % Calc 2.6 % (<4) 05/13/21 02:50 Troponin I High Sens 89.3 ng/L (4.0-60.0) H* 05/13/21 02:50 C-Reactive Protein 295.30 mg/L (0-3.0) H 05/12/21 11:13 B-Natriuretic Peptide 648 pg/mL (0-79) H* 05/12/21 11:00 Total Protein 5.4 g/dL (6.4-8.2) L 05/13/21 02:50 Albumin 1.7 g/dL (3.4-5.0) L 05/13/21 02:50 Globulin 3.7 g/dL (2.5-4.5) 05/13/21 02:50 Albumin/Globulin Ratio 0.5 Ratio (1.1-2.1) L 05/13/21 02:50 SARS-CoV-2 (PCR) Positive (NEGATIVE) A 05/12/21 11:02 Influenza Type A (PCR) Negative (NEGATIVE) 05/12/21 11:02 Influenza Type B (PCR) Negative (NEGATIVE) 05/12/21 11:02 RSV (PCR) Negative (NEGATIVE) 05/12/21 11:02 Review of Systems Constitutional: Fever, Chills and Weakness Eyes: No Symptoms Reported ENT: No Symptoms Reported Respiratory: Cough, Shortness of Breath and Wheezing Cardiovascular: No Symptoms Reported Gastrointestinal: No Symptoms Reported Genitourinary: No Symptoms Reported Musculoskeletal: No Symptoms Reported Skin: No Symptoms Reported Neurological: No Symptoms Reported Physical Exam Vital Signs: Temperature 97.8 F Pulse Rate [Radial] 123 Pulse Rate 124 Respiratory Rate 26 Blood Pressure [Left Arm] 117/83 Blood Pressure 135/57 O2 Sat by Pulse Oximetry 90 Oriented: Normal Eyes: Normal Ear: Normal Nose: Normal Throat: Normal Respiratory: Diminished Throughout, Rales Throughout and Wheezes Throughout Cardiovascular: Normal : Normal Auscultation: Bowel Sounds: Normal Palpation: Normal Tenderness: Normal Skin: Normal Musculoskeletal: Normal Psychiatric: Normal Mood Description: Calm and Appropriate Affect: Normal Speech Pattern: Clear and Appropriate Assessment/Plan (1) Pneumonia due to COVID-19 virus: Status: Acute Plan: Pneumonia protocol (2) Hypoxia: Status: Acute (3) Acute renal failure: Status: Acute Plan: IVF (4) Elevated troponin: Status: Acute Plan: Trend troponin Review H&P Reviewed: Yes Patient was examined?: Yes
[2021-05-13] MEDS: PULMICORT NEB TX 0.5 MG NEB SCH ×2 (09:16→20:15)
[2021-05-13] MEDS: BROVANA IN SCH ×2 (09:16→20:15)
--- NOTE | 2021-05-13 09:39 | PCM.PROG ---
Progress Note Progress Note for Day of Date of Exam: 05/13/21 Subjective Subjective: Pt is a 81 year old male past medical history of COPD, CABG, HFrEF, Hypertension, admitted for COVID-19 pneumonia with hypoxia, Acute respiratory failure, and Acute renal failure. This morning patient reports feeling "hot" with chills. He was able to be weaned down from BiPAP to Heated High Flow oxygen with FiO2 45%. Labs/imaging: Wbc 13, Hgb 13.4, Plt 131, Na 146, K 4.5, Creatinine 1.51, Glucose 199, Troponin 120>107>89, CXR was obtained that revealed: COPD with stable bilateral airspace and interstitial opacities consistent with COVID 19 pneumonia. Pt is currently on pneumonia protocol that includes: IVF NS@80ml/h, Remdesivir, Solumedrol 80mg q8h, scheduled Bronchodilators, Antibiotics: IV Rocephin, immune supporting supplements, supplemental O2, Lovenox 30mg BID, SSI, I/S, Respiratory therapy consult, Pneumonia protocol. Troponin trending down. Renal function improving. Home m edications were resumed. Continue to wean/titrate supplemental oxygen as tolerated. Otherwise will continue with current treatment plan. Continue to closely monitor and follow up labs/imaging. Time spent on clinical assessment, reviewing labs and imaging, decision making, and documentation greater than 45 minutes. Past Medical Family Social History Past Med/Fam/Surg Hx: No changes since H&P Allergies: Allergies No Known Drug Allergies Allergy (Verified 06/02/18 17:31) Review of Systems ROS: No change since H&P Vital Signs and I&O's Vital Signs: Temperature 97.8 F Pulse Rate [Radial] 99 Pulse Rate 124 Respiratory Rate 24 Blood Pressure [Left Arm] 118/57 Blood Pressure 135/57 O2 Sat by Pulse Oximetry 92 Intake and Output: Intake & Output 05/10/21 05/11/21 05/12/21 05/13/21 23:59 23:59 23:59 23:59 Intake Total 768 / 768 726 / 726 Output Total 300 / 300 Balance 768 / 768 426 / 426 Physical Exam Oriented: Normal Eyes: Normal Ear: Normal Nose: Normal Throat: Normal Respiratory: Diminished, Wheezes and Rales Cardiovascular: Normal : Normal Auscultation: Bowel Sounds: Normal Tenderness: Normal Skin: Normal Musculoskeletal: Normal Psychiatric: Normal Mood Description: Calm and Appropriate Affect: Normal Speech Pattern: Clear and Appropriate Laboratory and Diagnostics Result Diagrams: 05/13/21 02:50 05/13/21 02:50 Labs: Laboratory WBC 13.0 X10^3/uL (3.6-10.0) H D 05/13/21 02:50 RBC 4.69 X10^6/uL (4.7-6.0) L 05/13/21 02:50 Hgb 13.4 g/dL (13.5-18.0) L 05/13/21 02:50 Hct 40.4 % (42.0-54.0) L 05/13/21 02:50 MCV 86.1 fL (80.0-100.0) 05/13/21 02:50 MCH 28.4 pg (27.0-34.0) 05/13/21 02:50 MCHC 33.0 g/dL (33.0-35.0) 05/13/21 02:50 RDW 18.3 % (11.6-16.5) H 05/13/21 02:50 Plt Count 131 X10^3/uL (150.0-450.0) L 05/13/21 02:50 Plt Count Comment Adequate (ADEQUATE) 05/12/21 11:00 MPV 9.0 fL (7.4-11.0) 05/13/21 02:50 Neut % (Auto) 86.4 % (42.0-75.0) H 05/13/21 02:50 Lymph % (Auto) 10.0 % (21.0-51.0) L 05/13/21 02:50 Bartholomew % (Auto) 3.0 % (0.0-13.0) 05/13/21 02:50 Eos % (Auto) 0.0 % (0.9-2.9) L 05/13/21 02:50 Baso % (Auto) 0.6 % (0.2-1.0) 05/13/21 02:50 Neut # (Auto) 11.3 x10^3/uL (2.2-4.8) H 05/13/21 02:50 Lymph # (Auto) 1.3 X10^3/uL (1.3-2.9) 05/13/21 02:50 Bartholomew # (Auto) 0.4 x10^3/uL (0.3-0.8) 05/13/21 02:50 Eos # (Auto) 0.0 x10^3/uL (0.0-0.2) 05/13/21 02:50 Baso # (Auto) 0.1 X10^3/uL (0.0-0.1) 05/13/21 02:50 Absolute Nucleated RBC 0.1 /100WBC 05/13/21 02:50 Total Counted 100 05/12/21 11:00 Neutrophils % (Manual) 78 % (39-76) H 05/12/21 11:00 Band Neutrophils % 6 % (0-10) 05/12/21 11:00 Lymphocytes % (Manual) 12 % (13-43) L 05/12/21 11:00 Monocytes % (Manual) 4 % (4-9) 05/12/21 11:00 Plt Morphology Comment Normal (NORMAL) 05/12/21 11:00 RBC Morphology Abnormal (NORMAL) 05/12/21 11:00 Anisocytosis Slight A 05/12/21 11:00 Sample Site Rr 05/12/21 10:51 ABG pH 7.450 (7.35-7.45) 05/12/21 10:51 ABG pCO2 48.0 mmHg (35.0-45.0) H 05/12/21 10:51 ABG pO2 43.0 mmHg (80.0-100.0) L* 05/12/21 10:51 ABG HCO3 33.4 mmol/L (22-26) H* 05/12/21 10:51 ABG O2 Saturation 81.0 % (90-100) L* 05/12/21 10:51 ABG Base Excess 8.2 mmol/L (-2.0-2.0) H 05/12/21 10:51 Anselmo Test Pos 05/12/21 10:51 A-a Gradient 97.0 mmHg 05/12/21 10:51 FiO2 28.0 05/12/21 10:51 Blood Gas Comments Kelly well. sd 05/12/21 10:51 Sodium 146 mmol/L (136-145) H 05/13/21 02:50 Corrected Sodium 148 mmol/L (136-145) H 05/13/21 02:50 Potassium 4.5 mmol/L (3.5-5.1) 05/13/21 02:50 Chloride 108 mmol/L (98-107) H 05/13/21 02:50 Carbon Dioxide 32.4 mmol/L (21-32) H 05/13/21 02:50 BUN 49 mg/dL (7-18) H 05/13/21 02:50 Creatinine 1.51 mg/dL (0.70-1.30) H 05/13/21 02:50 Est GFR (MDRD) Af Amer 57 (>60) L 05/13/21 02:50 Est GFR (MDRD) Non-Af 47 (>60) L 05/13/21 02:50 Glucose 199 mg/dL (65-99) H 05/13/21 02:50 Lactic Acid 1.8 mmol/L (0.4-2.0) 05/12/21 17:05 Calcium 8.0 mg/dL (8.5-10.1) L 05/13/21 02:50 Corrected Calcium 9.8 mg/dL (8.5-10.1) 05/13/21 02:50 Total Bilirubin 0.70 mg/dL (0.2-1.0) 05/13/21 02:50 AST 24 Units/L (15-37) 05/13/21 02:50 ALT 27 Units/L (12-78) 05/13/21 02:50 Alkaline Phosphatase 84 Units/L (46-116) 05/13/21 02:50 Creatine Kinase 89 Units/L (39-308) 05/13/21 02:50 CK-MB (CK-2) 2.3 ng/mL (0-4.0) 05/13/21 02:50 CK/CKMB % Calc 2.6 % (<4) 05/13/21 02:50 Troponin I High Sens 89.3 ng/L (4.0-60.0) H* 05/13/21 02:50 C-Reactive Protein 295.30 mg/L (0-3.0) H 05/12/21 11:13 B-Natriuretic Peptide 648 pg/mL (0-79) H* 05/12/21 11:00 Total Protein 5.4 g/dL (6.4-8.2) L 05/13/21 02:50 Albumin 1.7 g/dL (3.4-5.0) L 05/13/21 02:50 Globulin 3.7 g/dL (2.5-4.5) 05/13/21 02:50 Albumin/Globulin Ratio 0.5 Ratio (1.1-2.1) L 05/13/21 02:50 SARS-CoV-2 (PCR) Positive (NEGATIVE) A 05/12/21 11:02 Influenza Type A (PCR) Negative (NEGATIVE) 05/12/21 11:02 Influenza Type B (PCR) Negative (NEGATIVE) 05/12/21 11:02 RSV (PCR) Negative (NEGATIVE) 05/12/21 11:02 Plan (1) Pneumonia due to COVID-19 virus: Status: Acute Plan: Pneumonia protocol (2) Hypoxia: Status: Acute (3) Acute renal failure: Status: Acute Plan: IVF (4) Elevated troponin: Status: Acute Plan: Trend troponin
[2021-05-13] MEDS: ROBITUSSIN DM PO PRN (20:01)
[2021-05-13] MEDS: DUONEB 0.5 MG/3 MG (3 mL) NEB PRN (20:15)
[2021-05-13] MEDS: RESTORIL CAP 15 MG PO PRN (21:30)
[2021-05-14] MEDS: XANAX PO PRN ×2 (02:20→20:01)
[2021-05-14 05:34] LABS: BASOPHILS # (AUTO) 0.2 X10^3/uL (0.0-0.1); BASOPHILS % (AUTO) 1.1 % (0.2-1.0); HEMATOCRIT 41.1 % (42.0-54.0); HEMOGLOBIN 13.7 g/dL (13.5-18.0); LYMPHOCYTES # (AUTO) 0.7 X10^3/uL (1.3-2.9); LYMPHOCYTES % (AUTO) 4.6 % (21.0-51.0); MEAN CORPUSCULAR HEMOGLOBIN 28.7 pg (27.0-34.0); MEAN CORPUSCULAR HGB CONC 33.3 g/dL (33.0-35.0); MEAN CORPUSCULAR VOLUME 86.1 fL (80.0-100.0); MEAN PLATELET VOLUME 9.3 fL (7.4-11.0); MONOCYTES # (AUTO) 0.3 x10^3/uL (0.3-0.8); MONOCYTES % (AUTO) 2.1 % (0.0-13.0); NEUTROPHILS # (AUTO) 13.5 x10^3/uL (2.2-4.8); NEUTROPHILS % (AUTO) 92.2 % (42.0-75.0); RED BLOOD COUNT 4.78 X10^6/uL (4.7-6.0); RED CELL DISTRIBUTION WIDTH 18.4 % (11.6-16.5); WHITE BLOOD COUNT 14.6 X10^3/uL (3.6-10.0)
[2021-05-14] MEDS: NS 1,000 ML IV 1,000 ML IV SCH (05:38)
[2021-05-14] MEDS: SOLU-Medrol 125 MG VIAL IVP SCH ×3 (05:38→21:30)
[2021-05-14 05:49] LABS: ALANINE AMINOTRANSFERASE 33 Units/L (12-78); ALBUMIN 1.7 g/dL (3.4-5.0); ALKALINE PHOSPHATASE 129 Units/L (46-116); ASPARTATE AMINO TRANSFERASE 32 Units/L (15-37); BLOOD UREA NITROGEN 47 mg/dL (7-18); CALCIUM 8.7 mg/dL (8.5-10.1); CARBON DIOXIDE 32.2 mmol/L (21-32); CHLORIDE 108 mmol/L (98-107); COR CA(FOR HYPOALB) 10.5 mg/dL (8.5-10.1); COR NA(FOR HYPERGLY) 149 mmol/L (136-145); CREATININE 1.24 mg/dL (0.70-1.30); SODIUM 147 mmol/L (136-145); TOTAL PROTEIN 6.3 g/dL (6.4-8.2); eGFR NON BLACK RACES 60 (>60)
[2021-05-14 06:06] LABS: PLATELET MORPHOLOGY COMMENT NORMAL (NORMAL)
--- NOTE | 2021-05-14 06:23 | RAD ---
HISTORYCOVID-19STUDYAP chestCOMPARISONJanuary 2021FINDINGSSimilar mild cardiac enlargement. No change in extent or distribution of bilateral airspace disease. There is no significant pleural effusion or pneumothorax identified.IMPRESSIONNo change in appearance of bilateral pneumonia.Electronically signed by: LILA ARGUELLO (May 14, 2021 06:21:38)
[2021-05-14] MEDS: PULMICORT NEB TX 0.5 MG NEB SCH ×2 (08:14→20:19)
[2021-05-14] MEDS: BROVANA IN SCH ×2 (08:14→20:19)
[2021-05-14] MEDS ORDERED: TOPROL XL PO ONE (09:17)
[2021-05-14] MEDS ORDERED: NS 1/2 1,000 ML IV 1,000 ML IV ONE (09:19)
[2021-05-14] MEDS: NS 1/2 1,000 ML IV 1,000 ML IV SCH ×2 (09:26→21:30)
[2021-05-14] MEDS: REMDESIVIR 100 MG in NS 250 ML IV 250 ML IV SCH (09:26)
[2021-05-14] MEDS: ROCEPHIN 1 GRAM IV PREMIX 1 G/50 ML IV.SOLN. IV SCH (09:27)
[2021-05-14] MEDS: LOVENOX INJ 30 MG SYR SC SCH ×2 (09:27→20:01)
[2021-05-14] MEDS: PEPCID TAB 40 MG PO SCH ×2 (09:28→20:02)
[2021-05-14] MEDS: ZINC SULFATE PO SCH ×2 (09:28→20:01)
[2021-05-14] MEDS: VITAMIN D3 125 mcg (5,000 UNITS) PO SCH (09:28)
[2021-05-14] MEDS: ECOTRIN TAB 325 MG PO SCH (09:29)
[2021-05-14] MEDS: LASIX PO SCH (09:29)
[2021-05-14] MEDS: TOPROL XL PO SCH (09:29)
[2021-05-14] MEDS: VITAMIN A PO SCH (09:30)
[2021-05-14] MEDS: ZOCOR TAB 10 MG PO SCH (09:30)
[2021-05-14] MEDS: NORVASC TAB 10 MG PO SCH (09:30)
[2021-05-14] MEDS: ROBITUSSIN DM PO PRN (20:01)
[2021-05-14] MEDS: RESTORIL CAP 15 MG PO PRN (22:30)
[2021-05-14] MEDS ORDERED: TUSSIONEX PENNKINETIC SUSP ONE (23:41)
[2021-05-15] MEDS: TUSSIONEX PENNKINETIC SUSP PO PRN ×2 (00:06→20:09)
[2021-05-15] MEDS: XANAX PO PRN (01:12)
[2021-05-15] MEDS ORDERED: HALDOL INJ IM ONE (01:51)
[2021-05-15] MEDS ORDERED: HALDOL INJ ONE (01:53)
[2021-05-15 05:10] LABS: BASOPHILS % (AUTO) 0.2 % (0.2-1.0); HEMATOCRIT 41.2 % (42.0-54.0); HEMOGLOBIN 13.9 g/dL (13.5-18.0); LYMPHOCYTES # (AUTO) 0.8 X10^3/uL (1.3-2.9); LYMPHOCYTES % (AUTO) 5.7 % (21.0-51.0); MEAN CORPUSCULAR HEMOGLOBIN 28.8 pg (27.0-34.0); MEAN CORPUSCULAR HGB CONC 33.8 g/dL (33.0-35.0); MONOCYTES # (AUTO) 0.3 x10^3/uL (0.3-0.8); MONOCYTES % (AUTO) 1.9 % (0.0-13.0); NEUTROPHILS # (AUTO) 12.7 x10^3/uL (2.2-4.8); NEUTROPHILS % (AUTO) 92.2 % (42.0-75.0); RED BLOOD COUNT 4.85 X10^6/uL (4.7-6.0); RED CELL DISTRIBUTION WIDTH 18.1 % (11.6-16.5); WHITE BLOOD COUNT 13.8 X10^3/uL (3.6-10.0)
[2021-05-15 05:18] LABS: ALANINE AMINOTRANSFERASE 43 Units/L (12-78); ALKALINE PHOSPHATASE 97 Units/L (46-116); ASPARTATE AMINO TRANSFERASE 26 Units/L (15-37); BLOOD UREA NITROGEN 37 mg/dL (7-18); CALCIUM 8.7 mg/dL (8.5-10.1); CARBON DIOXIDE 34.5 mmol/L (21-32); CHLORIDE 104 mmol/L (98-107); COR CA(FOR HYPOALB) 10.3 mg/dL (8.5-10.1); COR NA(FOR HYPERGLY) 147 mmol/L (136-145); CREATININE 1.16 mg/dL (0.70-1.30); SODIUM 145 mmol/L (136-145); TOTAL PROTEIN 6.7 g/dL (6.4-8.2); eGFR NON BLACK RACES > 60 (>60)
[2021-05-15] MEDS: SOLU-Medrol 125 MG VIAL IVP SCH (05:21)
[2021-05-15 05:46] LABS: PLATELET MORPHOLOGY COMMENT NORMAL (NORMAL)
[2021-05-15] MEDS ORDERED: POTASSIUM CHL 60 MEQ/NS 0.45% 500 ML IV PRN (06:26)
[2021-05-15] MEDS ORDERED: K-RIDER 10 MEQ/NS 100 ML 10 MEQ/100 ML BAG IV PRN (06:26)
[2021-05-15] MEDS ORDERED: MICRO K EXTEN CAP 10 MEQ PO PRN (06:26)
[2021-05-15] MEDS ORDERED: K-DUR TAB 20 MEQ PO PRN (06:26)
[2021-05-15] MEDS ORDERED: KLOR-CON PO PRN (06:26)
[2021-05-15] MEDS ORDERED: POTASSIUM CHL 40 MEQ/NS 0.45% 500 ML IV PRN (06:26)
[2021-05-15] MEDS ORDERED: MAGNESIUM SULFATE 1 GRAM/100 mL PREMIX 1 G/100 ML BAG IV PRN (06:26)
--- NOTE | 2021-05-15 07:35 | RAD ---
HISTORYCOVID+STUDYCHEST, 1 [id number]/2022TECHNIQUEAP view of the chestFINDINGSStatus post median sternotomy. The cardiac silhouette is stably enlarged. Mediastinal contours appear stable. Lungs are hyperexpanded. There are stable bilateral airspace and interstitial opacities with a mid to lower lung predominance. Right costophrenic sulcus is not completely within the field of view. No discernible pleural effusion or pneumothorax.IMPRESSIONNo significant change. COPD with bilateral pneumonia.Electronically signed by: Guido Clifton (May 15, 2021 07:34:11)
[2021-05-15] MEDS: BROVANA IN SCH ×2 (08:15→20:18)
[2021-05-15] MEDS: PULMICORT NEB TX 0.5 MG NEB SCH ×2 (08:15→20:18)
[2021-05-15] MEDS ORDERED: HALDOL INJ IVP PRN (08:35)
[2021-05-15] MEDS ORDERED: SOLU-Medrol 40 MG VIAL IVP SCH (09:00)
[2021-05-15] MEDS ORDERED: TOPROL XL PO ONE (09:45)
[2021-05-15] MEDS: REMDESIVIR 100 MG in NS 250 ML IV 250 ML IV SCH (09:53)
[2021-05-15] MEDS: ROCEPHIN 1 GRAM IV PREMIX 1 G/50 ML IV.SOLN. IV SCH (09:53)
[2021-05-15] MEDS: LOVENOX INJ 30 MG SYR SC SCH ×2 (09:57→20:08)
[2021-05-15] MEDS: TOPROL XL PO SCH (09:58)
[2021-05-15] MEDS: PEPCID TAB 40 MG PO SCH ×2 (09:58→20:09)
[2021-05-15] MEDS: NORVASC TAB 10 MG PO SCH (09:58)
[2021-05-15] MEDS: ZOCOR TAB 10 MG PO SCH (09:58)
[2021-05-15] MEDS: ECOTRIN TAB 325 MG PO SCH (09:59)
[2021-05-15] MEDS: LASIX PO SCH (09:59)
[2021-05-15] MEDS: VITAMIN D3 125 mcg (5,000 UNITS) PO SCH (09:59)
[2021-05-15] MEDS: ZINC SULFATE PO SCH ×2 (09:59→20:09)
[2021-05-15] MEDS: VITAMIN A PO SCH (09:59)
[2021-05-15] MEDS: NS 1/2 1,000 ML IV 1,000 ML IV SCH (10:32)
--- NOTE | 2021-05-15 12:13 | PCM.PROG ---
Progress Note Progress Note for Day of Date of Exam: 05/14/21 Subjective Subjective: Pt is a 81 year old male past medical history of COPD, CABG, HFrEF, Hypertension, admitted for COVID-19 pneumonia with hypoxia, Acute respiratory failure, and Acute renal failure. This morning patient is resting in bed. He is requiring Heated High Flow oxygen with FiO2 51%. Labs/imaging: Wbc 14.6, Hgb 13.7, Plt 148, Na 147, K 3.8, Creatinine 1.24, Glucose 165, CRP 233, Blood culture:+ gram negative rods. CXR was obtained that revealed: No significant change. COPD with bilateral pneumonia. Pt is currently on pneumonia protocol that includes: IVF NS@80ml/h, Remdesivir, Solumedrol 80mg q8h, scheduled Bronchodilators, Antibiotics: IV Rocephin, immune supporting supplements, supplemental O2, Lovenox 30mg BID, SSI, I/S, Respiratory therapy consult, Pneumonia protocol. Home medications were resumed. Continue to wean/titrate supplemental oxygen as tolerated. Taper IV solumedrol to 40mg q8h. Otherwise will continue with current treatment plan. Continue to closely monitor and follow up labs/imaging. Time spent on clinical assessment, reviewing labs and imaging, decision making, and documentation greater than 45 minutes. Past Medical Family Social History Past Med/Fam/Surg Hx: No changes since H&P Allergies: Allergies No Known Drug Allergies Allergy (Verified 06/02/18 17:31) Review of Systems ROS: No change since H&P Vital Signs and I&O's Vital Signs: Temperature 98.2 F Pulse Rate [Radial] 104 Pulse Rate 103 Respiratory Rate 30 Blood Pressure [Left Arm] 130/68 Blood Pressure 134/63 O2 Sat by Pulse Oximetry 90 Intake and Output: Intake & Output 05/12/21 05/13/21 05/14/21 05/15/21 23:59 23:59 23:59 23:59 Intake Total 768 / 768 2657 / 2657 2591 / 2591 308 / 308 Output Total 900 / 900 1625 / 1625 400 / 400 Balance 768 / 768 1757 / 1757 966 / 966 -92 / -92 Physical Exam Oriented: Normal Eyes: Normal Ear: Normal Nose: Normal Throat: Normal Respiratory: Diminished and Rales Cardiovascular: Normal : Normal Auscultation: Bowel Sounds: Normal Tenderness: Normal Skin: Normal Musculoskeletal: Normal Psychiatric: Normal Mood Description: Calm and Appropriate Affect: Normal Speech Pattern: Clear and Appropriate Laboratory and Diagnostics Result Diagrams: 05/15/21 04:27 05/15/21 04:27 Labs: 05/12/21 11:09 Blood Blood Culture - Final Serratia Marcescens 05/12/21 11:00 Blood Blood Culture - Preliminary Laboratory WBC 13.8 X10^3/uL (3.6-10.0) H 05/15/21 04:27 RBC 4.85 X10^6/uL (4.7-6.0) 05/15/21 04:27 Hgb 13.9 g/dL (13.5-18.0) 05/15/21 04:27 Hct 41.2 % (42.0-54.0) L 05/15/21 04:27 MCV 85.0 fL (80.0-100.0) 05/15/21 04:27 MCH 28.8 pg (27.0-34.0) 05/15/21 04:27 MCHC 33.8 g/dL (33.0-35.0) 05/15/21 04:27 RDW 18.1 % (11.6-16.5) H 05/15/21 04:27 Plt Count 161 X10^3/uL (150.0-450.0) 05/15/21 04:27 Plt Count Comment Adequate (ADEQUATE) 05/15/21 04:27 MPV 9.0 fL (7.4-11.0) 05/15/21 04:27 Neut % (Auto) 92.2 % (42.0-75.0) H 05/15/21 04:27 Lymph % (Auto) 5.7 % (21.0-51.0) L 05/15/21 04:27 Graham % (Auto) 1.9 % (0.0-13.0) 05/15/21 04:27 Eos % (Auto) 0.0 % (0.9-2.9) L 05/15/21 04:27 Baso % (Auto) 0.2 % (0.2-1.0) 05/15/21 04:27 Neut # (Auto) 12.7 x10^3/uL (2.2-4.8) H 05/15/21 04:27 Lymph # (Auto) 0.8 X10^3/uL (1.3-2.9) L 05/15/21 04:27 Graham # (Auto) 0.3 x10^3/uL (0.3-0.8) 05/15/21 04:27 Eos # (Auto) 0.0 x10^3/uL (0.0-0.2) 05/15/21 04:27 Baso # (Auto) 0.0 X10^3/uL (0.0-0.1) 05/15/21 04:27 Absolute Nucleated RBC 0.2 /100WBC 05/15/21 04:27 Total Counted 100 05/15/21 04:27 Neutrophils % (Manual) 93 % (39-76) H 05/15/21 04:27 Band Neutrophils % 6 % (0-10) 05/12/21 11:00 Lymphocytes % (Manual) 5 % (13-43) L 05/15/21 04:27 Monocytes % (Manual) 2 % (4-9) L 05/15/21 04:27 Plt Morphology Comment Normal (NORMAL) 05/15/21 04:27 RBC Morphology Normal (NORMAL) 05/15/21 04:27 Anisocytosis Slight A 05/12/21 11:00 Sample Site Rr 05/12/21 10:51 ABG pH 7.450 (7.35-7.45) 05/12/21 10:51 ABG pCO2 48.0 mmHg (35.0-45.0) H 05/12/21 10:51 ABG pO2 43.0 mmHg (80.0-100.0) L* 05/12/21 10:51 ABG HCO3 33.4 mmol/L (22-26) H* 05/12/21 10:51 ABG O2 Saturation 81.0 % (90-100) L* 05/12/21 10:51 ABG Base Excess 8.2 mmol/L (-2.0-2.0) H 05/12/21 10:51 Anselmo Test Pos 05/12/21 10:51 A-a Gradient 97.0 mmHg 05/12/21 10:51 FiO2 28.0 05/12/21 10:51 Blood Gas Comments Kelly well. sd 05/12/21 10:51 Sodium 145 mmol/L (136-145) 05/15/21 04:27 Corrected Sodium 147 mmol/L (136-145) H 05/15/21 04:27 Potassium 3.0 mmol/L (3.5-5.1) L* 05/15/21 04:27 Chloride 104 mmol/L (98-107) 05/15/21 04:27 Carbon Dioxide 34.5 mmol/L (21-32) H 05/15/21 04:27 BUN 37 mg/dL (7-18) H 05/15/21 04:27 Creatinine 1.16 mg/dL (0.70-1.30) 05/15/21 04:27 Est GFR (MDRD) Af Amer > 60 (>60) 05/15/21 04:27 Est GFR (MDRD) Non-Af > 60 (>60) 05/15/21 04:27 Glucose 195 mg/dL (65-99) H 05/15/21 04:27 Lactic Acid 1.8 mmol/L (0.4-2.0) 05/12/21 17:05 Calcium 8.7 mg/dL (8.5-10.1) 05/15/21 04:27 Corrected Calcium 10.3 mg/dL (8.5-10.1) H 05/15/21 04:27 Magnesium 2.0 mg/dL (1.7-2.9) 05/15/21 04:27 Total Bilirubin 0.70 mg/dL (0.2-1.0) 05/15/21 04:27 AST 26 Units/L (15-37) 05/15/21 04:27 ALT 43 Units/L (12-78) 05/15/21 04:27 Alkaline Phosphatase 97 Units/L (46-116) 05/15/21 04:27 Creatine Kinase 89 Units/L (39-308) 05/13/21 02:50 CK-MB (CK-2) 2.3 ng/mL (0-4.0) 05/13/21 02:50 CK/CKMB % Calc 2.6 % (<4) 05/13/21 02:50 Troponin I High Sens 89.3 ng/L (4.0-60.0) H* 05/13/21 02:50 C-Reactive Protein 128.60 mg/L (0-3.0) H 05/15/21 04:27 B-Natriuretic Peptide 648 pg/mL (0-79) H* 05/12/21 11:00 Total Protein 6.7 g/dL (6.4-8.2) 05/15/21 04:27 Albumin 2.0 g/dL (3.4-5.0) L 05/15/21 04:27 Globulin 4.7 g/dL (2.5-4.5) H 05/15/21 04:27 Albumin/Globulin Ratio 0.4 Ratio (1.1-2.1) L 05/15/21 04:27 SARS-CoV-2 (PCR) Positive (NEGATIVE) A 05/12/21 11:02 Influenza Type A (PCR) Negative (NEGATIVE) 05/12/21 11:02 Influenza Type B (PCR) Negative (NEGATIVE) 05/12/21 11:02 RSV (PCR) Negative (NEGATIVE) 05/12/21 11:02 Plan (1) Pneumonia due to COVID-19 virus: Status: Acute Plan: Pneumonia protocol (2) Hypoxia: Status: Acute (3) Acute renal failure: Status: Acute Plan: IVF (4) Elevated troponin: Status: Acute Plan: Trend troponin
[2021-05-15] MEDS: DUONEB 0.5 MG/3 MG (3 mL) NEB PRN (12:50)
--- NOTE | 2021-05-15 12:57 | PCM.PROG ---
Progress Note Progress Note for Day of Date of Exam: 05/15/21 Subjective Subjective: Pt is a 81 year old male past medical history of COPD, CABG, HFrEF, Hypertension, admitted for COVID-19 pneumonia with hypoxia, Acute respiratory failure, and Acute renal failure. Overnight, patient became agitated and kept removing his supplemental oxygen and trying to remove his IV lines. He is requiring Heated High Flow oxygen with FiO2 51%. Labs/imaging: Wbc 13.8, Hgb 13.9, Plt 161, Na 145, K 3.0, Creatinine 1.16, Glucose 195, CRP 128, Blood culture: positive for Serratia Marcescens susceptible to IV Rocephin. Repeat blood cultures pending. CXR was obtained that revealed: No significant change. COPD with bilateral pneumonia. Pt is currently on pneumonia protocol that includes: IVF NS@80ml/h, Remdesivir, IV Solumedrol 40mg TID, scheduled Bronchodilators, Antibiotics: IV Rocephin, immune supporting supplements, supplemental O2, Lovenox 30mg BID, SSI, I/S, Respiratory therapy consult, Pneumonia protocol. Continue to wean/titrate supplemental oxygen as tolerated. Concern for delerium, possibly steroid induced, will taper IV Solumedrol. Add IV Haldol prn. Replete potassium for hypokalemia. Otherwise will continue with current treatment plan. Continue to closely monitor and follow up labs/imaging. Time spent on clinical assessment, reviewing labs and imaging, decision making, and documentation greater than 45 minutes. Past Medical Family Social History Past Med/Fam/Surg Hx: No changes since H&P Allergies: Allergies No Known Drug Allergies Allergy (Verified 06/02/18 17:31) Review of Systems ROS: No change since H&P Vital Signs and I&O's Vital Signs: Temperature 98.2 F Pulse Rate [Radial] 104 Pulse Rate 103 Respiratory Rate 30 Blood Pressure [Left Arm] 130/68 Blood Pressure 134/63 O2 Sat by Pulse Oximetry 90 Intake and Output: Intake & Output 05/12/21 05/13/21 05/14/21 05/15/21 23:59 23:59 23:59 23:59 Intake Total 768 / 768 2657 / 2657 2591 / 2591 308 / 308 Output Total 900 / 900 1625 / 1625 400 / 400 Balance 768 / 768 1757 / 1757 966 / 966 - / Physical Exam Oriented: Normal Eyes: Normal Ear: Normal Nose: Normal Throat: Normal Respiratory: Diminished and Rales Cardiovascular: Normal : Normal Auscultation: Bowel Sounds: Normal Tenderness: Normal Skin: Normal Musculoskeletal: Normal Psychiatric: Normal Mood Description: Calm and Appropriate Affect: Normal Speech Pattern: Clear and Appropriate Laboratory and Diagnostics Result Diagrams: 05/15/21 04:27 05/15/21 04:27 Labs: 05/12/21 11:09 Blood Blood Culture - Final Serratia Marcescens 05/12/21 11:00 Blood Blood Culture - Preliminary Laboratory WBC 13.8 X10^3/uL (3.6-10.0) H 05/15/21 04:27 RBC 4.85 X10^6/uL (4.7-6.0) 05/15/21 04:27 Hgb 13.9 g/dL (13.5-18.0) 05/15/21 04:27 Hct 41.2 % (42.0-54.0) L 05/15/21 04:27 MCV 85.0 fL (80.0-100.0) 05/15/21 04:27 MCH 28.8 pg (27.0-34.0) 05/15/21 04:27 MCHC 33.8 g/dL (33.0-35.0) 05/15/21 04:27 RDW 18.1 % (11.6-16.5) H 05/15/21 04:27 Plt Count 161 X10^3/uL (150.0-450.0) 05/15/21 04:27 Plt Count Comment Adequate (ADEQUATE) 05/15/21 04:27 MPV 9.0 fL (7.4-11.0) 05/15/21 04:27 Neut % (Auto) 92.2 % (42.0-75.0) H 05/15/21 04:27 Lymph % (Auto) 5.7 % (21.0-51.0) L 05/15/21 04:27 Dickens % (Auto) 1.9 % (0.0-13.0) 05/15/21 04:27 Eos % (Auto) 0.0 % (0.9-2.9) L 05/15/21 04:27 Baso % (Auto) 0.2 % (0.2-1.0) 05/15/21 04:27 Neut # (Auto) 12.7 x10^3/uL (2.2-4.8) H 05/15/21 04:27 Lymph # (Auto) 0.8 X10^3/uL (1.3-2.9) L 05/15/21 04:27 Dickens # (Auto) 0.3 x10^3/uL (0.3-0.8) 05/15/21 04:27 Eos # (Auto) 0.0 x10^3/uL (0.0-0.2) 05/15/21 04:27 Baso # (Auto) 0.0 X10^3/uL (0.0-0.1) 05/15/21 04:27 Absolute Nucleated RBC 0.2 /100WBC 05/15/21 04:27 Total Counted 100 05/15/21 04:27 Neutrophils % (Manual) 93 % (39-76) H 05/15/21 04:27 Band Neutrophils % 6 % (0-10) 05/12/21 11:00 Lymphocytes % (Manual) 5 % (13-43) L 05/15/21 04:27 Monocytes % (Manual) 2 % (4-9) L 05/15/21 04:27 Plt Morphology Comment Normal (NORMAL) 05/15/21 04:27 RBC Morphology Normal (NORMAL) 05/15/21 04:27 Anisocytosis Slight A 05/12/21 11:00 Sample Site Rr 05/12/21 10:51 ABG pH 7.450 (7.35-7.45) 05/12/21 10:51 ABG pCO2 48.0 mmHg (35.0-45.0) H 05/12/21 10:51 ABG pO2 43.0 mmHg (80.0-100.0) L* 05/12/21 10:51 ABG HCO3 33.4 mmol/L (22-26) H* 05/12/21 10:51 ABG O2 Saturation 81.0 % (90-100) L* 05/12/21 10:51 ABG Base Excess 8.2 mmol/L (-2.0-2.0) H 05/12/21 10:51 Anselmo Test Pos 05/12/21 10:51 A-a Gradient 97.0 mmHg 05/12/21 10:51 FiO2 28.0 05/12/21 10:51 Blood Gas Comments Kelly well. sd 05/12/21 10:51 Sodium 145 mmol/L (136-145) 05/15/21 04:27 Corrected Sodium 147 mmol/L (136-145) H 05/15/21 04:27 Potassium 3.0 mmol/L (3.5-5.1) L* 05/15/21 04:27 Chloride 104 mmol/L (98-107) 05/15/21 04:27 Carbon Dioxide 34.5 mmol/L (21-32) H 05/15/21 04:27 BUN 37 mg/dL (7-18) H 05/15/21 04:27 Creatinine 1.16 mg/dL (0.70-1.30) 05/15/21 04:27 Est GFR (MDRD) Af Amer > 60 (>60) 05/15/21 04:27 Est GFR (MDRD) Non-Af > 60 (>60) 05/15/21 04:27 Glucose 195 mg/dL (65-99) H 05/15/21 04:27 Lactic Acid 1.8 mmol/L (0.4-2.0) 05/12/21 17:05 Calcium 8.7 mg/dL (8.5-10.1) 05/15/21 04:27 Corrected Calcium 10.3 mg/dL (8.5-10.1) H 05/15/21 04:27 Magnesium 2.0 mg/dL (1.7-2.9) 05/15/21 04:27 Total Bilirubin 0.70 mg/dL (0.2-1.0) 05/15/21 04:27 AST 26 Units/L (15-37) 05/15/21 04:27 ALT 43 Units/L (12-78) 05/15/21 04:27 Alkaline Phosphatase 97 Units/L (46-116) 05/15/21 04:27 Creatine Kinase 89 Units/L (39-308) 05/13/21 02:50 CK-MB (CK-2) 2.3 ng/mL (0-4.0) 05/13/21 02:50 CK/CKMB % Calc 2.6 % (<4) 05/13/21 02:50 Troponin I High Sens 89.3 ng/L (4.0-60.0) H* 05/13/21 02:50 C-Reactive Protein 128.60 mg/L (0-3.0) H 05/15/21 04:27 B-Natriuretic Peptide 648 pg/mL (0-79) H* 05/12/21 11:00 Total Protein 6.7 g/dL (6.4-8.2) 05/15/21 04:27 Albumin 2.0 g/dL (3.4-5.0) L 05/15/21 04:27 Globulin 4.7 g/dL (2.5-4.5) H 05/15/21 04:27 Albumin/Globulin Ratio 0.4 Ratio (1.1-2.1) L 05/15/21 04:27 SARS-CoV-2 (PCR) Positive (NEGATIVE) A 05/12/21 11:02 Influenza Type A (PCR) Negative (NEGATIVE) 05/12/21 11:02 Influenza Type B (PCR) Negative (NEGATIVE) 05/12/21 11:02 RSV (PCR) Negative (NEGATIVE) 05/12/21 11:02 Plan (1) Pneumonia due to COVID-19 virus: Status: Acute Plan: Pneumonia protocol (2) Hypoxia: Status: Acute (3) Acute renal failure: Status: Acute Plan: IVF (4) Elevated troponin: Status: Acute Plan: Trend troponin
[2021-05-15] MEDS: POTASSIUM CHLORIDE LIQ 20 MEQ UDC PO PRN (16:01)
[2021-05-15] MEDS: RESTORIL CAP 15 MG PO PRN (20:10)
[2021-05-16] MEDS: NS 1/2 1,000 ML IV 1,000 ML IV SCH ×2 (02:06→12:21)
[2021-05-16 05:33] LABS: BASOPHILS % (AUTO) 0.2 % (0.2-1.0); HEMATOCRIT 40.4 % (42.0-54.0); HEMOGLOBIN 13.7 g/dL (13.5-18.0); LYMPHOCYTES # (AUTO) 1.2 X10^3/uL (1.3-2.9); LYMPHOCYTES % (AUTO) 8.1 % (21.0-51.0); MEAN CORPUSCULAR HEMOGLOBIN 28.6 pg (27.0-34.0); MEAN CORPUSCULAR HGB CONC 33.8 g/dL (33.0-35.0); MEAN CORPUSCULAR VOLUME 84.7 fL (80.0-100.0); MONOCYTES # (AUTO) 0.5 x10^3/uL (0.3-0.8); MONOCYTES % (AUTO) 3.7 % (0.0-13.0); NEUTROPHILS # (AUTO) 12.6 x10^3/uL (2.2-4.8); RED BLOOD COUNT 4.77 X10^6/uL (4.7-6.0); RED CELL DISTRIBUTION WIDTH 17.8 % (11.6-16.5); WHITE BLOOD COUNT 14.3 X10^3/uL (3.6-10.0)
[2021-05-16 05:45] LABS: ALANINE AMINOTRANSFERASE 48 Units/L (12-78); ALBUMIN 1.8 g/dL (3.4-5.0); ALKALINE PHOSPHATASE 89 Units/L (46-116); ASPARTATE AMINO TRANSFERASE 28 Units/L (15-37); BLOOD UREA NITROGEN 30 mg/dL (7-18); CALCIUM 8.2 mg/dL (8.5-10.1); CARBON DIOXIDE 36.5 mmol/L (21-32); CHLORIDE 104 mmol/L (98-107); COR NA(FOR HYPERGLY) 146 mmol/L (136-145); CREATININE 1.01 mg/dL (0.70-1.30); SODIUM 145 mmol/L (136-145); TOTAL PROTEIN 5.9 g/dL (6.4-8.2); eGFR NON BLACK RACES > 60 (>60)
--- NOTE | 2021-05-16 06:30 | RAD ---
HISTORYCOVID+STUDYCHEST, 1 VIEWCOMPARISONOne day prior.TECHNIQUEAP view of the chestFINDINGSStatus post median sternotomy. The cardiac silhouette is stably enlarged. Mediastinal contours appear stable. Stable lung hyper expansion. No significant change in bilateral airspace and interstitial opacities. The left base is not completely imaged. No discernible pleural effusion or pneumothorax.IMPRESSIONNo significant change. Left base not completely image.Electronically signed by: Guido Clifton (May 16, 2021 06:29:53)
[2021-05-16] MEDS: BROVANA IN SCH (08:22)
[2021-05-16] MEDS: PULMICORT NEB TX 0.5 MG NEB SCH (08:22)
[2021-05-16] MEDS ORDERED: TOPROL XL PO ONE (09:11)
[2021-05-16] MEDS: REMDESIVIR 100 MG in NS 250 ML IV 250 ML IV SCH (09:18)
[2021-05-16] MEDS ORDERED: LOPRESSOR INJ 5 MG AMP IVP ONE (09:18)
[2021-05-16] MEDS: LOVENOX INJ 30 MG SYR SC SCH (09:19)
[2021-05-16] MEDS: ROCEPHIN 1 GRAM IV PREMIX 1 G/50 ML IV.SOLN. IV SCH (09:19)
[2021-05-16] MEDS: TOPROL XL PO SCH (09:20)
[2021-05-16] MEDS: ZOCOR TAB 10 MG PO SCH (09:20)
[2021-05-16] MEDS: SOLU-Medrol 40 MG VIAL IVP SCH (09:20)
[2021-05-16] MEDS: LASIX PO SCH (09:21)
[2021-05-16] MEDS: ZINC SULFATE PO SCH (09:21)
[2021-05-16] MEDS: ECOTRIN TAB 325 MG PO SCH (09:21)
[2021-05-16] MEDS: VITAMIN D3 125 mcg (5,000 UNITS) PO SCH (09:21)
[2021-05-16] MEDS: NORVASC TAB 10 MG PO SCH (09:21)
[2021-05-16] MEDS: PEPCID TAB 40 MG PO SCH (09:21)
[2021-05-16] MEDS: VITAMIN A PO SCH (09:34)
--- NOTE | 2021-05-16 12:09 | RAD ---
HISTORYPICC LINE PLACEMENT Relevant Clinical InformationSTUDYCHEST, 1 [id number]/2022FINDINGSTrachea is midline. Status post sternotomy. There is stable moderate cardiomegaly. There is a new left-sided PICC line with the tip in the SVC. There is persistent ground-glass and interstitial radiopacities involving the midlung zones and the bases there is emphysema in the upper lobes. No pneumothorax.IMPRESSIONNew left-sided PICC line with the tip in the SVC.Persistent bilateral alveolar radiopacities.Electronically signed by: Honey Sweeney (May 16, 2021 12:08:00)
[2021-05-16] MEDS ORDERED: LOPRESSOR INJ 5 MG AMP ONE (12:13)
--- NOTE | 2021-05-16 12:20 | DR.UPDATE ---
H&P Update History and Physical Update: History and Physical reviewed and patient examined. Changes noted: NO Yes with the following:will place picc H&P Reviewed: Yes Patient was examined?: Yes Procedures (ALL) - Central Line Placement PCM.CLCO: written consent Time out performed: Yes Patient placed pm monitor/pulse ox: Yes prep: mask, gown, gloves, other Centrial line prep: povidone-iodine 1%, chlorhexidine scrub, sterile drapes applied Local anesthsia used: lidocane 1% Ultrasound used for placement: Yes (left basilic id'd and cannulation visualized) Central line lumen ininserted: double (5.5 arrowpicc. 5cm exposed of 50cm catheter) Post procedure: good blood return, all ports aspirated, flushed,capped, sterile dressing applied Post procedure xray: tip oc catheter in good position (svc per cxr), no pneumothorax seen Patient tolerated procedure: Yes Complications: none
[2021-05-16] MEDS ORDERED: PULMICORT NEB TX 0.5 MG NEB ONE (20:30)
[2021-05-16] MEDS ORDERED: BROVANA IN ONE (20:30)
[2021-05-17] MEDS ORDERED: BROVANA IN ONE (09:10)
[2021-05-17] MEDS ORDERED: PULMICORT NEB TX 0.5 MG NEB ONE (09:10)
[2021-05-17] MEDS: VITAMIN A PO SCH (09:50)
[2021-05-17] MEDS: TOPROL XL PO SCH (09:50)
[2021-05-17] MEDS: LOVENOX INJ 30 MG SYR SC SCH ×2 (09:50→20:49)
[2021-05-17] MEDS: ROCEPHIN 1 GRAM IV PREMIX 1 G/50 ML IV.SOLN. IV SCH (09:50)
[2021-05-17] MEDS: ECOTRIN TAB 325 MG PO SCH (09:50)
[2021-05-17] MEDS: SOLU-Medrol 40 MG VIAL IVP SCH (09:50)
[2021-05-17] MEDS: VITAMIN D3 125 mcg (5,000 UNITS) PO SCH (09:50)
[2021-05-17] MEDS: ZOCOR TAB 10 MG PO SCH (09:50)
[2021-05-17] MEDS: LASIX PO SCH (09:50)
[2021-05-17] MEDS: PEPCID TAB 40 MG PO SCH ×2 (09:50→20:49)
[2021-05-17] MEDS: NORVASC TAB 10 MG PO SCH (09:50)
[2021-05-17] MEDS: ZINC SULFATE PO SCH ×2 (09:50→20:49)
[2021-05-17 13:05] LABS: ALANINE AMINOTRANSFERASE 45 Units/L (12-78); ALBUMIN 1.8 g/dL (3.4-5.0); ALKALINE PHOSPHATASE 75 Units/L (46-116); ASPARTATE AMINO TRANSFERASE 24 Units/L (15-37); BLOOD UREA NITROGEN 30 mg/dL (7-18); CALCIUM 8.2 mg/dL (8.5-10.1); CHLORIDE 104 mmol/L (98-107); COR NA(FOR HYPERGLY) 145 mmol/L (136-145); CREATININE 0.94 mg/dL (0.70-1.30); SODIUM 144 mmol/L (136-145); TOTAL PROTEIN 5.7 g/dL (6.4-8.2); eGFR NON BLACK RACES > 60 (>60)
[2021-05-17 13:07] LABS: CARBON DIOXIDE 40.7 mmol/L (21-32)
[2021-05-17 13:35] LABS: HEMATOCRIT 40.2 % (42.0-54.0); HEMOGLOBIN 13.3 g/dL (13.5-18.0); MEAN CORPUSCULAR HEMOGLOBIN 28.3 pg (27.0-34.0); MEAN CORPUSCULAR HGB CONC 33.2 g/dL (33.0-35.0); MEAN CORPUSCULAR VOLUME 85.3 fL (80.0-100.0); RED BLOOD COUNT 4.71 X10^6/uL (4.7-6.0); WHITE BLOOD COUNT 12.2 X10^3/uL (3.6-10.0)
[2021-05-17 13:36] LABS: BASOPHILS % (AUTO) 0.2 % (0.2-1.0); LYMPHOCYTES # (AUTO) 1.3 X10^3/uL (1.3-2.9); LYMPHOCYTES % (AUTO) 10.7 % (21.0-51.0); MEAN PLATELET VOLUME 9.4 fL (7.4-11.0); MONOCYTES # (AUTO) 0.3 x10^3/uL (0.3-0.8); MONOCYTES % (AUTO) 2.8 % (0.0-13.0); NEUTROPHILS # (AUTO) 10.5 x10^3/uL (2.2-4.8); NEUTROPHILS % (AUTO) 86.3 % (42.0-75.0); RED CELL DISTRIBUTION WIDTH 17.5 % (11.6-16.5)
--- NOTE | 2021-05-17 14:19 | RAD ---
HISTORYShortness of breath, COVID-19STUDYChest AP [id number]/21/2022FINDINGSPati ent is status post median sternotomy and CABG. There is a left-sided PICC line in good position. Heart is enlarged. No congestive heart failure is noted. Upper lung rosenberg are clear. Bilateral lower lobe alveolar infiltrates are unchanged. No pleural effusion is identified. Bony thorax is unremarkable.IMPRESSIONNo change bilateral lower lobe alveolar infiltratesNo change cardiomegaly without congestive heart failureElectronically signed by: SUSAN JOYCE (May 17, 2021 14:17:27)
--- NOTE | 2021-05-17 15:51 | PCM.PROG ---
Progress Note Progress Note for Day of Date of Exam: 05/17/21 Subjective Subjective: Pt is a 81 year old male past medical history of COPD, CABG, HFrEF, Hypertension, admitted for COVID-19 pneumonia with hypoxia, Acute respiratory failure, and Acute renal failure. Overnight, patient rested better. He is requiring Heated High Flow oxygen with FiO2 51%. Labs/imaging: Wbc 12.2, Hgb 13.3, Plt 146, Na 144, K 3.2, Creatinine 0.94, Glucose 144, CRP 73.8, Blood culture: positive for Serratia Marcescens susceptible to IV Rocephin. Repeat blood cultures pending. CXR was obtained that revealed: No significant change. COPD with bilateral pneumonia. Pt is currently on pneumonia protocol that includes: IVF NS@80ml/h, Remdesivir, IV Solumedrol 40mg TID, scheduled Bronchodilators, Antibiotics: IV Rocephin, immune supporting supplements, supplemental O2, Lovenox 30mg BID, SSI, I/S, Respiratory therapy consult, Pneumonia protocol. Continue to wean/titrate supplemental oxygen as tolerated. Concern for delirium, possibly steroid induced, will taper IV Solumedrol. Add IV Haldol prn. Replete potassium for hypokalemia. Otherwise will continue with current treatment plan. Continue to closely monitor and follow up labs/imaging. Time spent on clinical assessment, reviewing labs and imaging, decision making, and documentation greater than 45 minutes. Past Medical Family Social History Past Med/Fam/Surg Hx: No changes since H&P Allergies: Allergies No Known Drug Allergies Allergy (Verified 06/02/18 17:31) Review of Systems ROS: No change since H&P Vital Signs and I&O's Vital Signs: Temperature 98.2 F Pulse Rate [Radial] 104 Pulse Rate 93 Respiratory Rate 21 Blood Pressure [Left Arm] 130/68 Blood Pressure 136/97 O2 Sat by Pulse Oximetry 97 Intake and Output: Intake & Output 05/15/21 05/16/21 05/17/21 05/18/21 11:59 11:59 11:59 11:59 Intake Total 1788 / 1788 1460 / 1460 Output Total 1325 / 1325 Balance 463 / 463 1460 / 1460 Physical Exam Oriented: Normal Eyes: Normal Ear: Normal Nose: Normal Throat: Normal Respiratory: Diminished and Rales Cardiovascular: Normal : Normal Auscultation: Bowel Sounds: Normal Tenderness: Normal Skin: Normal Musculoskeletal: Normal Psychiatric: Normal Mood Description: Calm and Appropriate Affect: Normal Speech Pattern: Clear and Appropriate Laboratory and Diagnostics Result Diagrams: 05/17/21 04:35 05/17/21 04:35 Labs: 05/15/21 08:45 Blood Blood Culture - Preliminary 05/15/21 08:39 Blood Blood Culture - Preliminary 05/12/21 11:00 Blood Blood Culture - Final 05/12/21 11:09 Blood Blood Culture - Final Serratia Marcescens Laboratory WBC 12.2 X10^3/uL (3.6-10.0) H 05/17/21 04:35 RBC 4.71 X10^6/uL (4.7-6.0) 05/17/21 04:35 Hgb 13.3 g/dL (13.5-18.0) L 05/17/21 04:35 Hct 40.2 % (42.0-54.0) L 05/17/21 04:35 MCV 85.3 fL (80.0-100.0) 05/17/21 04:35 MCH 28.3 pg (27.0-34.0) 05/17/21 04:35 MCHC 33.2 g/dL (33.0-35.0) 05/17/21 04:35 RDW 17.5 % (11.6-16.5) H 05/17/21 04:35 Plt Count 146 X10^3/uL (150.0-450.0) L 05/17/21 04:35 Plt Count Comment Adequate (ADEQUATE) 05/15/21 04:27 MPV 9.4 fL (7.4-11.0) 05/17/21 04:35 Neut % (Auto) 86.3 % (42.0-75.0) H 05/17/21 04:35 Lymph % (Auto) 10.7 % (21.0-51.0) L 05/17/21 04:35 Osborne % (Auto) 2.8 % (0.0-13.0) 05/17/21 04:35 Eos % (Auto) 0.0 % (0.9-2.9) L 05/17/21 04:35 Baso % (Auto) 0.2 % (0.2-1.0) 05/17/21 04:35 Neut # (Auto) 10.5 x10^3/uL (2.2-4.8) H 05/17/21 04:35 Lymph # (Auto) 1.3 X10^3/uL (1.3-2.9) 05/17/21 04:35 Osborne # (Auto) 0.3 x10^3/uL (0.3-0.8) 05/17/21 04:35 Eos # (Auto) 0.0 x10^3/uL (0.0-0.2) 05/17/21 04:35 Baso # (Auto) 0.0 X10^3/uL (0.0-0.1) 05/17/21 04:35 Absolute Nucleated RBC 0.0 /100WBC 05/17/21 04:35 Total Counted 100 05/15/21 04:27 Neutrophils % (Manual) 93 % (39-76) H 05/15/21 04:27 Band Neutrophils % 6 % (0-10) 05/12/21 11:00 Lymphocytes % (Manual) 5 % (13-43) L 05/15/21 04:27 Monocytes % (Manual) 2 % (4-9) L 05/15/21 04:27 Plt Morphology Comment Normal (NORMAL) 05/15/21 04:27 RBC Morphology Normal (NORMAL) 05/15/21 04:27 Anisocytosis Slight A 05/12/21 11:00 Sample Site Rr 05/12/21 10:51 ABG pH 7.450 (7.35-7.45) 05/12/21 10:51 ABG pCO2 48.0 mmHg (35.0-45.0) H 05/12/21 10:51 ABG pO2 43.0 mmHg (80.0-100.0) L* 05/12/21 10:51 ABG HCO3 33.4 mmol/L (22-26) H* 05/12/21 10:51 ABG O2 Saturation 81.0 % (90-100) L* 05/12/21 10:51 ABG Base Excess 8.2 mmol/L (-2.0-2.0) H 05/12/21 10:51 Anselmo Test Pos 05/12/21 10:51 A-a Gradient 97.0 mmHg 05/12/21 10:51 FiO2 28.0 05/12/21 10:51 Blood Gas Comments Kelly well. sd 05/12/21 10:51 Sodium 144 mmol/L (136-145) 05/17/21 04:35 Corrected Sodium 145 mmol/L (136-145) 05/17/21 04:35 Potassium 3.2 mmol/L (3.5-5.1) L 05/17/21 04:35 Chloride 104 mmol/L (98-107) 05/17/21 04:35 Carbon Dioxide 40.7 mmol/L (21-32) H* 05/17/21 04:35 BUN 30 mg/dL (7-18) H 05/17/21 04:35 Creatinine 0.94 mg/dL (0.70-1.30) 05/17/21 04:35 Est GFR (MDRD) Af Amer > 60 (>60) 05/17/21 04:35 Est GFR (MDRD) Non-Af > 60 (>60) 05/17/21 04:35 Glucose 144 mg/dL (65-99) H 05/17/21 04:35 Lactic Acid 1.8 mmol/L (0.4-2.0) 05/12/21 17:05 Calcium 8.2 mg/dL (8.5-10.1) L 05/17/21 04:35 Corrected Calcium 10.0 mg/dL (8.5-10.1) 05/17/21 04:35 Magnesium 2.0 mg/dL (1.7-2.9) 05/15/21 04:27 Total Bilirubin 0.70 mg/dL (0.2-1.0) 05/17/21 04:35 AST 24 Units/L (15-37) 05/17/21 04:35 ALT 45 Units/L (12-78) 05/17/21 04:35 Alkaline Phosphatase 75 Units/L (46-116) 05/17/21 04:35 Creatine Kinase 89 Units/L (39-308) 05/13/21 02:50 CK-MB (CK-2) 2.3 ng/mL (0-4.0) 05/13/21 02:50 CK/CKMB % Calc 2.6 % (<4) 05/13/21 02:50 Troponin I High Sens 89.3 ng/L (4.0-60.0) H* 05/13/21 02:50 C-Reactive Protein 73.80 mg/L (0-3.0) H 05/17/21 04:35 B-Natriuretic Peptide 648 pg/mL (0-79) H* 05/12/21 11:00 Total Protein 5.7 g/dL (6.4-8.2) L 05/17/21 04:35 Albumin 1.8 g/dL (3.4-5.0) L 05/17/21 04:35 Globulin 3.9 g/dL (2.5-4.5) 05/17/21 04:35 Albumin/Globulin Ratio 0.5 Ratio (1.1-2.1) L 05/17/21 04:35 SARS-CoV-2 (PCR) Positive (NEGATIVE) A 05/12/21 11:02 Influenza Type A (PCR) Negative (NEGATIVE) 05/12/21 11:02 Influenza Type B (PCR) Negative (NEGATIVE) 05/12/21 11:02 RSV (PCR) Negative (NEGATIVE) 05/12/21 11:02 Plan (1) Pneumonia due to COVID-19 virus: Status: Acute Plan: Pneumonia protocol (2) Hypoxia: Status: Acute (3) Acute renal failure: Status: Acute Plan: IVF (4) Elevated troponin: Status: Acute Plan: Trend troponin
[2021-05-17] MEDS: NS 1/2 1,000 ML IV 1,000 ML IV SCH ×2 (16:44→22:19)
[2021-05-17] MEDS: XANAX PO PRN (20:50)
[2021-05-17] MEDS: RESTORIL CAP 15 MG PO PRN (20:50)
[2021-05-17] MEDS: PULMICORT NEB TX 0.5 MG NEB SCH (20:55)
[2021-05-17] MEDS: BROVANA IN SCH (20:55)
[2021-05-18] MEDS: NS 1/2 1,000 ML IV 1,000 ML IV SCH ×2 (03:20→21:35)
[2021-05-18] MEDS: XANAX PO PRN ×3 (03:40→20:32)
[2021-05-18 05:41] LABS: BASOPHILS # (AUTO) 0.1 X10^3/uL (0.0-0.1); BASOPHILS % (AUTO) 0.8 % (0.2-1.0); EOSINOPHILS # (AUTO) 0.1 x10^3/uL (0.0-0.2); HEMATOCRIT 39.7 % (42.0-54.0); HEMOGLOBIN 13.2 g/dL (13.5-18.0); MEAN CORPUSCULAR HEMOGLOBIN 28.3 pg (27.0-34.0); MEAN CORPUSCULAR HGB CONC 33.2 g/dL (33.0-35.0); MEAN CORPUSCULAR VOLUME 85.1 fL (80.0-100.0); MEAN PLATELET VOLUME 9.1 fL (7.4-11.0); MONOCYTES # (AUTO) 0.3 x10^3/uL (0.3-0.8); MONOCYTES % (AUTO) 2.3 % (0.0-13.0); NEUTROPHILS # (AUTO) 10.8 x10^3/uL (2.2-4.8); NEUTROPHILS % (AUTO) 87.9 % (42.0-75.0); RED BLOOD COUNT 4.67 X10^6/uL (4.7-6.0); RED CELL DISTRIBUTION WIDTH 17.5 % (11.6-16.5); WHITE BLOOD COUNT 12.2 X10^3/uL (3.6-10.0)
[2021-05-18 06:09] LABS: ALANINE AMINOTRANSFERASE 38 Units/L (12-78); ALBUMIN 1.7 g/dL (3.4-5.0); ALKALINE PHOSPHATASE 67 Units/L (46-116); ASPARTATE AMINO TRANSFERASE 21 Units/L (15-37); BLOOD UREA NITROGEN 28 mg/dL (7-18); CALCIUM 7.8 mg/dL (8.5-10.1); CARBON DIOXIDE 37.5 mmol/L (21-32); CHLORIDE 104 mmol/L (98-107); COR CA(FOR HYPOALB) 9.6 mg/dL (8.5-10.1); COR NA(FOR HYPERGLY) 143 mmol/L (136-145); CREATININE 0.93 mg/dL (0.70-1.30); SODIUM 142 mmol/L (136-145); TOTAL PROTEIN 5.3 g/dL (6.4-8.2); eGFR NON BLACK RACES > 60 (>60)
--- NOTE | 2021-05-18 06:15 | RAD ---
HISTORYCOVID+, PNEUMONIA, HYPOXIASTUDYCHEST, 1 [id number]-fuad ed PICC line is unchanged in position terminating within the SVC. Trachea is midline. Heart size is moderately enlarged with previous median sternotomy noted. Bibasilar increased interstitial opacities represents either interstitial edema or chronic interstitial lung changes. There is also component of superimposed COPD. No definite pleural effusion or evidence of pneumothorax.IMPRESSIONStable cardiomegaly with persistent bilateral lower lobe increased interstitial prominence representing either edema or chronic interstitial lung changes.Electronically signed by: BETI EMERSON (May 18, 2021 06:13:46)
[2021-05-18 07:27] LABS: ANISOCYTOSIS SLIGHT; PLATELET MORPHOLOGY COMMENT NORMAL (NORMAL)
[2021-05-18] MEDS: BROVANA IN SCH ×2 (09:20→20:10)
[2021-05-18] MEDS: PULMICORT NEB TX 0.5 MG NEB SCH ×2 (09:20→20:10)
[2021-05-18] MEDS ORDERED: TOPROL XL PO ONE (09:54)
[2021-05-18] MEDS ORDERED: NS 1/2 1,000 ML IV 1,000 ML IV ONE (09:59)
[2021-05-18] MEDS: LOVENOX INJ 30 MG SYR SC SCH ×2 (10:00→20:31)
[2021-05-18] MEDS: ROCEPHIN 1 GRAM IV PREMIX 1 G/50 ML IV.SOLN. IV SCH (10:43)
[2021-05-18] MEDS: SOLU-Medrol 40 MG VIAL IVP SCH (10:43)
[2021-05-18] MEDS: ZINC SULFATE PO SCH ×2 (10:46→20:32)
[2021-05-18] MEDS: ECOTRIN TAB 325 MG PO SCH (10:46)
[2021-05-18] MEDS: NORVASC TAB 10 MG PO SCH (10:46)
[2021-05-18] MEDS: LASIX PO SCH (10:46)
[2021-05-18] MEDS: VITAMIN A PO SCH (10:47)
[2021-05-18] MEDS: TOPROL XL PO SCH (10:47)
[2021-05-18] MEDS: PEPCID TAB 40 MG PO SCH ×2 (10:47→20:32)
[2021-05-18] MEDS: VITAMIN D3 125 mcg (5,000 UNITS) PO SCH (10:48)
[2021-05-18] MEDS: POTASSIUM CHLORIDE LIQ 20 MEQ UDC PO PRN (11:30)
--- NOTE | 2021-05-18 15:37 | PCM.PROG ---
Progress Note Progress Note for Day of Date of Exam: 05/18/21 Subjective Subjective: Pt is a 81 year old male past medical history of COPD, CABG, HFrEF, Hypertension, admitted for COVID-19 pneumonia with hypoxia, Acute respiratory failure, and Acute renal failure. Overnight, patient rested better. He is requiring Heated High Flow oxygen with FiO2 56%. Labs/imaging: Wbc 12.2, Hgb 13.2, Plt 148, Na 144, K 3.2, Creatinine 0.93, Glucose 127, CRP 73.8, Blood culture: positive for Serratia Marcescens susceptible to IV Rocephin. Repeat blood cultures pending. CXR was obtained that revealed: No significant change. COPD with bilateral pneumonia. Pt is currently on pneumonia protocol that includes: IVF NS@80ml/h, Remdesivir, IV Solumedrol 40mg TID, scheduled Bronchodilators, Antibiotics: IV Rocephin, immune supporting supplements, supplemental O2, Lovenox 30mg BID, SSI, I/S, Respiratory therapy consult, Pneumonia protocol. Continue to wean/titrate supplemental oxygen as tolerated. Concern for delirium, possibly steroid induced, will taper IV Solumedrol. Add IV Haldol prn. Replete potassium for hypokalemia. Otherwise will continue with current treatment plan. Continue to closely monitor and follow up labs/imaging. Time spent on clinical assessment, reviewing labs and imaging, decision making, and documentation greater than 45 minutes. Past Medical Family Social History Past Med/Fam/Surg Hx: No changes since H&P Allergies: Allergies No Known Drug Allergies Allergy (Verified 06/02/18 17:31) Review of Systems ROS: No change since H&P Vital Signs and I&O's Vital Signs: Temperature 97.8 F Pulse Rate [Radial] 104 Pulse Rate 96 Respiratory Rate 24 Blood Pressure [Left Arm] 130/68 Blood Pressure 138/75 O2 Sat by Pulse Oximetry 96 Intake and Output: Intake & Output 05/16/21 05/17/21 05/18/21 05/19/21 11:59 11:59 11:59 11:59 Intake Total 1460 / 1460 1350 / 1350 Output Total 1240 / 1240 Balance 1460 / 1460 110 / 110 Physical Exam Oriented: Normal Eyes: Normal Ear: Normal Nose: Normal Throat: Normal Respiratory: Diminished and Rales Cardiovascular: Normal : Normal Auscultation: Bowel Sounds: Normal Tenderness: Normal Skin: Normal Musculoskeletal: Normal Psychiatric: Normal Mood Description: Calm and Appropriate Affect: Normal Speech Pattern: Clear and Appropriate Laboratory and Diagnostics Result Diagrams: 05/18/21 05:01 05/18/21 05:01 Labs: 05/15/21 08:45 Blood Blood Culture - Preliminary 05/15/21 08:39 Blood Blood Culture - Preliminary 05/12/21 11:00 Blood Blood Culture - Final 05/12/21 11:09 Blood Blood Culture - Final Serratia Marcescens Laboratory WBC 12.2 X10^3/uL (3.6-10.0) H 05/18/21 05:01 RBC 4.67 X10^6/uL (4.7-6.0) L 05/18/21 05:01 Hgb 13.2 g/dL (13.5-18.0) L 05/18/21 05:01 Hct 39.7 % (42.0-54.0) L 05/18/21 05:01 MCV 85.1 fL (80.0-100.0) 05/18/21 05:01 MCH 28.3 pg (27.0-34.0) 05/18/21 05:01 MCHC 33.2 g/dL (33.0-35.0) 05/18/21 05:01 RDW 17.5 % (11.6-16.5) H 05/18/21 05:01 Plt Count 148 X10^3/uL (150.0-450.0) L 05/18/21 05:01 Plt Count Comment Decreased (ADEQUATE) 05/18/21 05:01 MPV 9.1 fL (7.4-11.0) 05/18/21 05:01 Neut % (Auto) 87.9 % (42.0-75.0) H 05/18/21 05:01 Lymph % (Auto) 8.0 % (21.0-51.0) L 05/18/21 05:01 [place] % (Auto) 2.3 % (0.0-13.0) 05/18/21 05:01 Eos % (Auto) 1.0 % (0.9-2.9) 05/18/21 05:01 Baso % (Auto) 0.8 % (0.2-1.0) 05/18/21 05:01 Neut # (Auto) 10.8 x10^3/uL (2.2-4.8) H 05/18/21 05:01 Lymph # (Auto) 1.0 X10^3/uL (1.3-2.9) L 05/18/21 05:01 [place] # (Auto) 0.3 x10^3/uL (0.3-0.8) 05/18/21 05:01 Eos # (Auto) 0.1 x10^3/uL (0.0-0.2) 05/18/21 05:01 Baso # (Auto) 0.1 X10^3/uL (0.0-0.1) 05/18/21 05:01 Absolute Nucleated RBC 0.1 /100WBC 05/18/21 05:01 Total Counted 100 05/18/21 05:01 Neutrophils % (Manual) 86 % (39-76) H 05/18/21 05:01 Band Neutrophils % 6 % (0-10) 05/12/21 11:00 Lymphocytes % (Manual) 10 % (13-43) L 05/18/21 05:01 Monocytes % (Manual) 4 % (4-9) 05/18/21 05:01 Plt Morphology Comment Normal (NORMAL) 05/18/21 05:01 RBC Morphology Abnormal (NORMAL) 05/18/21 05:01 Anisocytosis Slight A 05/18/21 05:01 Sample Site Rr 05/12/21 10:51 ABG pH 7.450 (7.35-7.45) 05/12/21 10:51 ABG pCO2 48.0 mmHg (35.0-45.0) H 05/12/21 10:51 ABG pO2 43.0 mmHg (80.0-100.0) L* 05/12/21 10:51 ABG HCO3 33.4 mmol/L (22-26) H* 05/12/21 10:51 ABG O2 Saturation 81.0 % (90-100) L* 05/12/21 10:51 ABG Base Excess 8.2 mmol/L (-2.0-2.0) H 05/12/21 10:51 Anselmo Test Pos 05/12/21 10:51 A-a Gradient 97.0 mmHg 05/12/21 10:51 FiO2 28.0 05/12/21 10:51 Blood Gas Comments Kelly well. sd 05/12/21 10:51 Sodium 142 mmol/L (136-145) 05/18/21 05:01 Corrected Sodium 143 mmol/L (136-145) 05/18/21 05:01 Potassium 3.1 mmol/L (3.5-5.1) L 05/18/21 05:01 Chloride 104 mmol/L (98-107) 05/18/21 05:01 Carbon Dioxide 37.5 mmol/L (21-32) H 05/18/21 05:01 BUN 28 mg/dL (7-18) H 05/18/21 05:01 Creatinine 0.93 mg/dL (0.70-1.30) 05/18/21 05:01 Est GFR (MDRD) Af Amer > 60 (>60) 05/18/21 05:01 Est GFR (MDRD) Non-Af > 60 (>60) 05/18/21 05:01 Glucose 127 mg/dL (65-99) H 05/18/21 05:01 Lactic Acid 1.8 mmol/L (0.4-2.0) 05/12/21 17:05 Calcium 7.8 mg/dL (8.5-10.1) L 05/18/21 05:01 Corrected Calcium 9.6 mg/dL (8.5-10.1) 05/18/21 05:01 Magnesium 2.0 mg/dL (1.7-2.9) 05/15/21 04:27 Total Bilirubin 0.60 mg/dL (0.2-1.0) 05/18/21 05:01 AST 21 Units/L (15-37) 05/18/21 05:01 ALT 38 Units/L (12-78) 05/18/21 05:01 Alkaline Phosphatase 67 Units/L (46-116) 05/18/21 05:01 Creatine Kinase 89 Units/L (39-308) 05/13/21 02:50 CK-MB (CK-2) 2.3 ng/mL (0-4.0) 05/13/21 02:50 CK/CKMB % Calc 2.6 % (<4) 05/13/21 02:50 Troponin I High Sens 89.3 ng/L (4.0-60.0) H* 05/13/21 02:50 C-Reactive Protein 42.10 mg/L (0-3.0) H 05/18/21 05:01 B-Natriuretic Peptide 648 pg/mL (0-79) H* 05/12/21 11:00 Total Protein 5.3 g/dL (6.4-8.2) L 05/18/21 05:01 Albumin 1.7 g/dL (3.4-5.0) L 05/18/21 05:01 Globulin 3.6 g/dL (2.5-4.5) 05/18/21 05:01 Albumin/Globulin Ratio 0.5 Ratio (1.1-2.1) L 05/18/21 05:01 SARS-CoV-2 (PCR) Positive (NEGATIVE) A 05/12/21 11:02 Influenza Type A (PCR) Negative (NEGATIVE) 05/12/21 11:02 Influenza Type B (PCR) Negative (NEGATIVE) 05/12/21 11:02 RSV (PCR) Negative (NEGATIVE) 05/12/21 11:02 Radiology Reviewed: Yes Plan (1) Pneumonia due to COVID-19 virus: Status: Acute Narrative Support Text: Imporving clinically. Plan: Pneumonia protocol (2) Hypoxia: Status: Acute (3) Acute renal failure: Status: Resolved Plan: IVF (4) Elevated troponin: Status: Acute
[2021-05-18] MEDS: RESTORIL CAP 15 MG PO PRN (20:32)
[2021-05-19 06:05] VITALS: BP 141/67
[2021-05-19 06:07] LABS: BLOOD UREA NITROGEN 26 mg/dL (7-18); CALCIUM 8.1 mg/dL (8.5-10.1); CARBON DIOXIDE 36.5 mmol/L (21-32); CHLORIDE 102 mmol/L (98-107); COR NA(FOR HYPERGLY) 143 mmol/L (136-145); CREATININE 0.99 mg/dL (0.70-1.30); SODIUM 142 mmol/L (136-145); eGFR NON BLACK RACES > 60 (>60)
[2021-05-19 06:08] LABS: EOSINOPHILS % (AUTO) 0.1 % (0.9-2.9); LYMPHOCYTES # (AUTO) 1.5 X10^3/uL (1.3-2.9); MEAN PLATELET VOLUME 9.1 fL (7.4-11.0); MONOCYTES # (AUTO) 0.4 x10^3/uL (0.3-0.8)
--- NOTE | 2021-05-19 06:11 | PCM.PROG ---
Progress Note Progress Note for Day of Date of Exam: 05/16/21 Subjective Subjective: Pt is a 81 year old male past medical history of COPD, CABG, HFrEF, Hypertension, admitted for COVID-19 pneumonia with hypoxia, Acute respiratory failure, and Acute renal failure. Pt reports improvement in his breathing. He is sitting comfortably in recliner this morning. Currently requiring Heated High Flow oxygen with FiO2 45%. Labs/imaging: Wbc 13.8, Hgb 13.9, Plt 161, Na 145, K 3.0, Creatinine 1.16, Glucose 195, CRP 128, Blood culture: positive for Serratia Marcescens susceptible to IV Rocephin. Repeat blood cultures pending. CXR was obtained that revealed: No significant change. COPD with bilateral pneumonia. Pt is currently on pneumonia protocol that includes: IVF NS@80ml/h, Remdesivir, IV Solumedrol 40mg daily, scheduled Bronchodilators, Antibiotics: IV Rocephin, immune supporting supplements, supplemental O2, Lovenox 30mg BID, SSI, I/S, Respiratory therapy consult, Pneumonia protocol. Continue to wean/titrate supplemental oxygen as tolerated. Replete potassium for hypokalemia. Will get PICC line today. Otherwise, will continue with current treatment plan. Continue to closely monitor and follow up labs/imaging. Time spent on clinical assessment, reviewing labs and imaging, decision making, and documentation greater than 45 minutes. Past Medical Family Social History Past Med/Fam/Surg Hx: No changes since H&P Allergies: Allergies No Known Drug Allergies Allergy (Verified 06/02/18 17:31) Review of Systems ROS: No change since H&P Vital Signs and I&O's Vital Signs: Temperature 98.0 F Pulse Rate [Radial] 104 Pulse Rate 84 Respiratory Rate 15 Blood Pressure [Left Arm] 130/68 Blood Pressure 141/67 O2 Sat by Pulse Oximetry 95 Intake and Output: Intake & Output 05/16/21 05/17/21 05/18/21 05/19/21 23:59 23:59 23:59 23:59 Intake Total 260 / 260 1100 / 1100 700 / 700 350 / 350 Output Total 840 / 840 600 / 600 250 / 250 Balance 260 / 260 260 / 260 100 / 100 100 / 100 Physical Exam Oriented: Normal Eyes: Normal Ear: Normal Nose: Normal Throat: Normal Respiratory: Diminished and Rales Cardiovascular: Normal : Normal Auscultation: Bowel Sounds: Normal Tenderness: Normal Skin: Normal Musculoskeletal: Normal Psychiatric: Normal Mood Description: Calm and Appropriate Affect: Normal Speech Pattern: Clear and Appropriate Laboratory and Diagnostics Result Diagrams: 05/18/21 05:01 05/19/21 05:21 Labs: 05/15/21 08:45 Blood Blood Culture - Preliminary 05/15/21 08:39 Blood Blood Culture - Preliminary 05/12/21 11:00 Blood Blood Culture - Final 05/12/21 11:09 Blood Blood Culture - Final Serratia Marcescens Laboratory WBC 12.2 X10^3/uL (3.6-10.0) H 05/18/21 05:01 RBC 4.67 X10^6/uL (4.7-6.0) L 05/18/21 05:01 Hgb 13.2 g/dL (13.5-18.0) L 05/18/21 05:01 Hct 39.7 % (42.0-54.0) L 05/18/21 05:01 MCV 85.1 fL (80.0-100.0) 05/18/21 05:01 MCH 28.3 pg (27.0-34.0) 05/18/21 05:01 MCHC 33.2 g/dL (33.0-35.0) 05/18/21 05:01 RDW 17.5 % (11.6-16.5) H 05/18/21 05:01 Plt Count 148 X10^3/uL (150.0-450.0) L 05/18/21 05:01 Plt Count Comment Decreased (ADEQUATE) 05/18/21 05:01 MPV 9.1 fL (7.4-11.0) 05/18/21 05:01 Neut % (Auto) 87.9 % (42.0-75.0) H 05/18/21 05:01 Lymph % (Auto) 8.0 % (21.0-51.0) L 05/18/21 05:01 [place] % (Auto) 2.3 % (0.0-13.0) 05/18/21 05:01 Eos % (Auto) 1.0 % (0.9-2.9) 05/18/21 05:01 Baso % (Auto) 0.8 % (0.2-1.0) 05/18/21 05:01 Neut # (Auto) 10.8 x10^3/uL (2.2-4.8) H 05/18/21 05:01 Lymph # (Auto) 1.0 X10^3/uL (1.3-2.9) L 05/18/21 05:01 [place] # (Auto) 0.3 x10^3/uL (0.3-0.8) 05/18/21 05:01 Eos # (Auto) 0.1 x10^3/uL (0.0-0.2) 05/18/21 05:01 Baso # (Auto) 0.1 X10^3/uL (0.0-0.1) 05/18/21 05:01 Absolute Nucleated RBC 0.1 /100WBC 05/18/21 05:01 Total Counted 100 05/18/21 05:01 Neutrophils % (Manual) 86 % (39-76) H 05/18/21 05:01 Band Neutrophils % 6 % (0-10) 05/12/21 11:00 Lymphocytes % (Manual) 10 % (13-43) L 05/18/21 05:01 Monocytes % (Manual) 4 % (4-9) 05/18/21 05:01 Plt Morphology Comment Normal (NORMAL) 05/18/21 05:01 RBC Morphology Abnormal (NORMAL) 05/18/21 05:01 Anisocytosis Slight A 05/18/21 05:01 Sample Site Rr 05/12/21 10:51 ABG pH 7.450 (7.35-7.45) 05/12/21 10:51 ABG pCO2 48.0 mmHg (35.0-45.0) H 05/12/21 10:51 ABG pO2 43.0 mmHg (80.0-100.0) L* 05/12/21 10:51 ABG HCO3 33.4 mmol/L (22-26) H* 05/12/21 10:51 ABG O2 Saturation 81.0 % (90-100) L* 05/12/21 10:51 ABG Base Excess 8.2 mmol/L (-2.0-2.0) H 05/12/21 10:51 Anselmo Test Pos 05/12/21 10:51 A-a Gradient 97.0 mmHg 05/12/21 10:51 FiO2 28.0 05/12/21 10:51 Blood Gas Comments Kelly well. sd 05/12/21 10:51 Sodium 142 mmol/L (136-145) 05/18/21 05:01 Corrected Sodium 143 mmol/L (136-145) 05/18/21 05:01 Potassium 3.1 mmol/L (3.5-5.1) L 05/18/21 05:01 Chloride 104 mmol/L (98-107) 05/18/21 05:01 Carbon Dioxide 37.5 mmol/L (21-32) H 05/18/21 05:01 BUN 28 mg/dL (7-18) H 05/18/21 05:01 Creatinine 0.93 mg/dL (0.70-1.30) 05/18/21 05:01 Est GFR (MDRD) Af Amer > 60 (>60) 05/18/21 05:01 Est GFR (MDRD) Non-Af > 60 (>60) 05/18/21 05:01 Glucose 127 mg/dL (65-99) H 05/18/21 05:01 Lactic Acid 1.8 mmol/L (0.4-2.0) 05/12/21 17:05 Calcium 7.8 mg/dL (8.5-10.1) L 05/18/21 05:01 Corrected Calcium 9.6 mg/dL (8.5-10.1) 05/18/21 05:01 Magnesium 2.0 mg/dL (1.7-2.9) 05/15/21 04:27 Total Bilirubin 0.60 mg/dL (0.2-1.0) 05/18/21 05:01 AST 21 Units/L (15-37) 05/18/21 05:01 ALT 38 Units/L (12-78) 05/18/21 05:01 Alkaline Phosphatase 67 Units/L (46-116) 05/18/21 05:01 Creatine Kinase 89 Units/L (39-308) 05/13/21 02:50 CK-MB (CK-2) 2.3 ng/mL (0-4.0) 05/13/21 02:50 CK/CKMB % Calc 2.6 % (<4) 05/13/21 02:50 Troponin I High Sens 89.3 ng/L (4.0-60.0) H* 05/13/21 02:50 C-Reactive Protein 42.10 mg/L (0-3.0) H 05/18/21 05:01 B-Natriuretic Peptide 648 pg/mL (0-79) H* 05/12/21 11:00 Total Protein 5.3 g/dL (6.4-8.2) L 05/18/21 05:01 Albumin 1.7 g/dL (3.4-5.0) L 05/18/21 05:01 Globulin 3.6 g/dL (2.5-4.5) 05/18/21 05:01 Albumin/Globulin Ratio 0.5 Ratio (1.1-2.1) L 05/18/21 05:01 SARS-CoV-2 (PCR) Positive (NEGATIVE) A 05/12/21 11:02 Influenza Type A (PCR) Negative (NEGATIVE) 05/12/21 11:02 Influenza Type B (PCR) Negative (NEGATIVE) 05/12/21 11:02 RSV (PCR) Negative (NEGATIVE) 05/12/21 11:02 Plan (1) Pneumonia due to COVID-19 virus: Status: Acute Plan: Pneumonia protocol (2) Hypoxia: Status: Acute (3) Acute renal failure: Status: Resolved Plan: IVF (4) Elevated troponin: Status: Acute Plan: Trend troponin
[2021-05-19 06:13] LABS: BASOPHILS # (AUTO) 0.1 X10^3/uL (0.0-0.1); BASOPHILS % (AUTO) 0.5 % (0.2-1.0); HEMATOCRIT 42.2 % (42.0-54.0); HEMOGLOBIN 14.1 g/dL (13.5-18.0); LYMPHOCYTES % (AUTO) 13.7 % (21.0-51.0); MEAN CORPUSCULAR HEMOGLOBIN 28.9 pg (27.0-34.0); MEAN CORPUSCULAR HGB CONC 33.4 g/dL (33.0-35.0); MEAN CORPUSCULAR VOLUME 86.6 fL (80.0-100.0); MONOCYTES % (AUTO) 4.1 % (0.0-13.0); NEUTROPHILS # (AUTO) 8.7 x10^3/uL (2.2-4.8); NEUTROPHILS % (AUTO) 81.6 % (42.0-75.0); RED BLOOD COUNT 4.87 X10^6/uL (4.7-6.0); RED CELL DISTRIBUTION WIDTH 17.9 % (11.6-16.5); WHITE BLOOD COUNT 10.7 X10^3/uL (3.6-10.0)
[2021-05-19 06:44] LABS: ALANINE AMINOTRANSFERASE 40 Units/L (12-78); ALBUMIN 1.9 g/dL (3.4-5.0); ALKALINE PHOSPHATASE 68 Units/L (46-116); ASPARTATE AMINO TRANSFERASE 22 Units/L (15-37); COR CA(FOR HYPOALB) 9.8 mg/dL (8.5-10.1); TOTAL PROTEIN 5.7 g/dL (6.4-8.2)
--- NOTE | 2021-05-19 09:04 | W.DIS.FURT ---
Summary of Discharge Discharge Summary of Date Date of Exam: 05/19/21 Admission Date Date of Admission: 05/12/21 Admission Diagnosis Patient Problems (Updated 05/20/21 @ 10:23 by John Mcnair) Pneumonia due to COVID-19 virus (Acute) U07.1, J12.82 Hypoxia (Acute) R09.02 Hospital Course: Pt is a 81 year old male past medical history of COPD, CABG, HFrEF, Hypertension, admitted for COVID-19 pneumonia with hypoxia, Acute respiratory failure, and Acute renal failure. Pt's hospital/treatment course included: IVF NS, Remdesivir, IV Solumedrol, scheduled Bronchodilators, Antibiotics: IV Rocephin, immune supporting supplements, supplemental O2, Lovenox 30mg BID, SSI, I/S, Respiratory therapy consult, Pneumonia protocol. Supplemental oxygen that initially was at heated high flow but able to be weaned down to 3L nasal cannula. Pt did have a positive blood culture: for Serratia Marcescens susceptible to IV Rocephin. Repeat blood cultures negative. Pt responded well to treatments. He was discharged in stable condition with requirement of 3L nasal cannula supplemental oxygen. He will receive another 6 days of IV antibiotics for bacteremia via home visiting nurse. Instructed to follow up with pcp in 3-5 days. Vital Signs: Vital Signs (72 hours) 05/16/21 09:15 05/16/21 09:30 05/16/21 09:45 Temperature Pulse Rate 126 H 96 H 84 Respiratory Rate 44 H 20 18 Blood Pressure O2 Sat by Pulse Oximetry 95 93 L 93 L 05/16/21 10:00 05/16/21 10:15 05/16/21 10:30 Temperature Pulse Rate 130 H 126 H 132 H Respiratory Rate 42 H 28 H 28 H Blood Pressure 130/96 O2 Sat by Pulse Oximetry 90 L 91 L 92 L 05/16/21 10:45 05/16/21 11:00 05/16/21 11:15 Temperature Pulse Rate 134 H 128 H 125 H Respiratory Rate 28 H 25 H 43 H Blood Pressure 123/93 O2 Sat by Pulse Oximetry 92 L 91 L 90 L 05/16/21 11:30 05/16/21 11:45 05/16/21 12:00 Temperature Pulse Rate 125 H 122 H 110 H Respiratory Rate 30 H 23 23 Blood Pressure O2 Sat by Pulse Oximetry 91 L 92 L 92 L 05/16/21 12:11 05/16/21 12:15 05/16/21 12:30 Temperature Pulse Rate 112 H 96 H Respiratory Rate 31 H 30 H Blood Pressure 115/79 O2 Sat by Pulse Oximetry 90 L 90 L 05/16/21 12:45 05/16/21 13:00 05/16/21 13:15 Temperature Pulse Rate 107 H 95 H 87 Respiratory Rate 32 H 29 H 29 H Blood Pressure 127/93 O2 Sat by Pulse Oximetry 89 L 94 L 95 05/16/21 13:30 05/16/21 13:45 05/16/21 14:00 Temperature Pulse Rate 87 93 H 92 H Respiratory Rate 26 H 31 H 33 H Blood Pressure O2 Sat by Pulse Oximetry 97 96 93 L 05/16/21 14:01 05/16/21 14:15 05/16/21 14:30 Temperature Pulse Rate 92 H 95 H 94 H Respiratory Rate 34 H 31 H 35 H Blood Pressure 110/54 O2 Sat by Pulse Oximetry 93 L 92 L 92 L 05/16/21 14:45 05/16/21 15:00 05/16/21 15:13 Temperature Pulse Rate 109 H 113 H 92 H Respiratory Rate 32 H 32 H 28 H Blood Pressure 144/88 O2 Sat by Pulse Oximetry 92 L 87 L 93 L 05/16/21 15:15 05/16/21 15:30 05/16/21 15:45 Temperature Pulse Rate 93 H 96 H 106 H Respiratory Rate 33 H 22 Blood Pressure O2 Sat by Pulse Oximetry 94 L 97 93 L 05/16/21 16:00 05/16/21 16:15 05/16/21 16:30 Temperature Pulse Rate 93 H 113 H 93 H Respiratory Rate 23 37 H 21 Blood Pressure 136/97 O2 Sat by Pulse Oximetry 96 94 L 97 05/16/21 16:45 05/16/21 17:00 05/16/21 17:01 Temperature 98.3 F Pulse Rate 85 86 86 Respiratory Rate 20 18 18 Blood Pressure 87/51 O2 Sat by Pulse Oximetry 95 95 95 05/16/21 17:15 05/16/21 17:30 05/16/21 17:45 Temperature Pulse Rate 90 87 91 H Respiratory Rate 19 16 19 Blood Pressure O2 Sat by Pulse Oximetry 95 94 L 94 L 05/17/21 19:00 05/17/21 20:00 05/17/21 20:55 Temperature 97.5 F L Pulse Rate 102 H 114 H 106 H Respiratory Rate 20 29 H Blood Pressure 134/74 123/65 O2 Sat by Pulse Oximetry 98 97 96 05/17/21 21:00 05/17/21 22:00 05/17/21 23:00 Temperature Pulse Rate 114 H 101 H 80 Respiratory Rate 27 H 21 18 Blood Pressure 112/70 168/61 167/71 O2 Sat by Pulse Oximetry 95 96 95 05/18/21 00:00 05/18/21 01:00 05/18/21 02:00 Temperature 98.0 F Pulse Rate 88 112 H 82 Respiratory Rate 20 20 20 Blood Pressure 168/77 178/94 121/59 O2 Sat by Pulse Oximetry 97 96 97 05/18/21 03:00 05/18/21 04:00 05/18/21 05:00 Temperature 98.2 F Pulse Rate 77 80 79 Respiratory Rate 18 19 18 Blood Pressure 163/77 151/60 125/77 O2 Sat by Pulse Oximetry 97 92 L 95 05/18/21 06:00 05/18/21 07:00 05/18/21 08:00 Temperature 97.8 F 98.1 F Pulse Rate 104 H 85 Respiratory Rate 16 Blood Pressure 138/75 130/70 O2 Sat by Pulse Oximetry 93 L 96 05/18/21 09:00 05/18/21 09:20 05/18/21 10:00 Temperature 97.9 F Pulse Rate 89 96 H 87 Respiratory Rate 22 24 22 Blood Pressure 128/68 142/72 O2 Sat by Pulse Oximetry 94 L 96 95 05/18/21 11:00 05/18/21 12:00 05/18/21 13:00 Temperature Pulse Rate 87 91 H 87 Respiratory Rate 22 18 20 Blood Pressure 129/76 O2 Sat by Pulse Oximetry 96 96 97 05/18/21 14:00 05/18/21 15:00 05/18/21 16:00 Temperature Pulse Rate 88 79 88 Respiratory Rate 22 24 22 Blood Pressure 130/78 O2 Sat by Pulse Oximetry 95 95 95 05/18/21 17:00 05/18/21 17:17 05/18/21 17:23 Temperature 98.9 F Pulse Rate 78 88 88 Respiratory Rate 22 22 24 Blood Pressure 130/70 128/6 O2 Sat by Pulse Oximetry 96 97 94 L 05/18/21 19:00 05/18/21 20:00 05/18/21 20:10 Temperature 97.7 F Pulse Rate 91 H 90 93 H Respiratory Rate 22 30 H 28 H Blood Pressure 134/93 136/74 O2 Sat by Pulse Oximetry 97 98 95 05/18/21 21:00 05/18/21 22:00 05/18/21 23:00 Temperature Pulse Rate 81 96 H 82 Respiratory Rate 11 L 27 H 21 Blood Pressure 130/74 132/82 131/63 O2 Sat by Pulse Oximetry 98 91 L 97 05/19/21 00:00 05/19/21 01:00 05/19/21 02:00 Temperature 98.4 F Pulse Rate 83 98 H 83 Respiratory Rate 25 H 15 14 Blood Pressure 139/90 143/79 114/72 O2 Sat by Pulse Oximetry 99 95 97 05/19/21 03:00 05/19/21 04:00 05/19/21 05:00 Temperature 98.0 F Pulse Rate 80 80 82 Respiratory Rate 17 16 20 Blood Pressure 127/56 111/58 122/60 O2 Sat by Pulse Oximetry 96 94 L 92 L 05/19/21 06:00 Temperature Pulse Rate 84 Respiratory Rate 15 Blood Pressure 141/67 O2 Sat by Pulse Oximetry 95 Labs: Laboratory Last Values WBC 10.7 X10^3/uL (3.6-10.0) H 05/19/21 05:21 RBC 4.87 X10^6/uL (4.7-6.0) 05/19/21 05:21 Hgb 14.1 g/dL (13.5-18.0) 05/19/21 05:21 Hct 42.2 % (42.0-54.0) 05/19/21 05:21 MCV 86.6 fL (80.0-100.0) 05/19/21 05:21 MCH 28.9 pg (27.0-34.0) 05/19/21 05:21 MCHC 33.4 g/dL (33.0-35.0) 05/19/21 05:21 RDW 17.9 % (11.6-16.5) H 05/19/21 05:21 Plt Count 146 X10^3/uL (150.0-450.0) L 05/19/21 05:21 Plt Count Comment Decreased (ADEQUATE) 05/18/21 05:01 MPV 9.1 fL (7.4-11.0) 05/19/21 05:21 Neut % (Auto) 81.6 % (42.0-75.0) H 05/19/21 05:21 Lymph % (Auto) 13.7 % (21.0-51.0) L 05/19/21 05:21 [place] % (Auto) 4.1 % (0.0-13.0) 05/19/21 05:21 Eos % (Auto) 0.1 % (0.9-2.9) L 05/19/21 05:21 Baso % (Auto) 0.5 % (0.2-1.0) 05/19/21 05:21 Neut # (Auto) 8.7 x10^3/uL (2.2-4.8) H 05/19/21 05:21 Lymph # (Auto) 1.5 X10^3/uL (1.3-2.9) 05/19/21 05:21 [place] # (Auto) 0.4 x10^3/uL (0.3-0.8) 05/19/21 05:21 Eos # (Auto) 0.0 x10^3/uL (0.0-0.2) 05/19/21 05:21 Baso # (Auto) 0.1 X10^3/uL (0.0-0.1) 05/19/21 05:21 Absolute Nucleated RBC 0.0 /100WBC 05/19/21 05:21 Total Counted 100 05/18/21 05:01 Neutrophils % (Manual) 86 % (39-76) H 05/18/21 05:01 Band Neutrophils % 6 % (0-10) 05/12/21 11:00 Lymphocytes % (Manual) 10 % (13-43) L 05/18/21 05:01 Monocytes % (Manual) 4 % (4-9) 05/18/21 05:01 Plt Morphology Comment Normal (NORMAL) 05/18/21 05:01 RBC Morphology Abnormal (NORMAL) 05/18/21 05:01 Anisocytosis Slight A 05/18/21 05:01 Sample Site Rr 05/12/21 10:51 ABG pH 7.450 (7.35-7.45) 05/12/21 10:51 ABG pCO2 48.0 mmHg (35.0-45.0) H 05/12/21 10:51 ABG pO2 43.0 mmHg (80.0-100.0) L* 05/12/21 10:51 ABG HCO3 33.4 mmol/L (22-26) H* 05/12/21 10:51 ABG O2 Saturation 81.0 % (90-100) L* 05/12/21 10:51 ABG Base Excess 8.2 mmol/L (-2.0-2.0) H 05/12/21 10:51 Anselmo Test Pos 05/12/21 10:51 A-a Gradient 97.0 mmHg 05/12/21 10:51 FiO2 28.0 05/12/21 10:51 Blood Gas Comments Kelly well. sd 05/12/21 10:51 Sodium 142 mmol/L (136-145) 05/19/21 05:21 Corrected Sodium 143 mmol/L (136-145) 05/19/21 05:21 Potassium 3.2 mmol/L (3.5-5.1) L 05/19/21 05:21 Chloride 102 mmol/L (98-107) 05/19/21 05:21 Carbon Dioxide 36.5 mmol/L (21-32) H 05/19/21 05:21 BUN 26 mg/dL (7-18) H 05/19/21 05:21 Creatinine 0.99 mg/dL (0.70-1.30) 05/19/21 05:21 Est GFR (MDRD) Af Amer > 60 (>60) 05/19/21 05:21 Est GFR (MDRD) Non-Af > 60 (>60) 05/19/21 05:21 Glucose 154 mg/dL (65-99) H 05/19/21 05:21 Lactic Acid 1.8 mmol/L (0.4-2.0) 05/12/21 17:05 Calcium 8.1 mg/dL (8.5-10.1) L 05/19/21 05:21 Corrected Calcium 9.8 mg/dL (8.5-10.1) 05/19/21 05:21 Magnesium 1.9 mg/dL (1.7-2.9) 05/19/21 05:21 Total Bilirubin 0.60 mg/dL (0.2-1.0) 05/19/21 05:21 AST 22 Units/L (15-37) 05/19/21 05:21 ALT 40 Units/L (12-78) 05/19/21 05:21 Alkaline Phosphatase 68 Units/L (46-116) 05/19/21 05:21 Creatine Kinase 89 Units/L (39-308) 05/13/21 02:50 CK-MB (CK-2) 2.3 ng/mL (0-4.0) 05/13/21 02:50 CK/CKMB % Calc 2.6 % (<4) 05/13/21 02:50 Troponin I High Sens 89.3 ng/L (4.0-60.0) H* 05/13/21 02:50 C-Reactive Protein 42.10 mg/L (0-3.0) H 05/18/21 05:01 B-Natriuretic Peptide 648 pg/mL (0-79) H* 05/12/21 11:00 Total Protein 5.7 g/dL (6.4-8.2) L 05/19/21 05:21 Albumin 1.9 g/dL (3.4-5.0) L 05/19/21 05:21 Globulin 3.8 g/dL (2.5-4.5) 05/19/21 05:21 Albumin/Globulin Ratio 0.5 Ratio (1.1-2.1) L 05/19/21 05:21 SARS-CoV-2 (PCR) Positive (NEGATIVE) A 05/12/21 11:02 Influenza Type A (PCR) Negative (NEGATIVE) 05/12/21 11:02 Influenza Type B (PCR) Negative (NEGATIVE) 05/12/21 11:02 RSV (PCR) Negative (NEGATIVE) 05/12/21 11:02 Reason For Visit: COVID PNEUMONIA, HYPOXIA Discharge Date Discharge Date: 05/19/21 Discharge Diagnosis All Active Problems (Updated 05/20/21 @ 10:23 by John Mcnair) Bacteremia (Acute) Elevated troponin (Acute) COVID-19 virus infection (Acute) Volume depletion (Acute) Pneumonia due to COVID-19 virus (Acute) Hypoxia (Acute) Aneurysm of infrarenal abdominal aorta (Acute) Diverticulosis of colon (Acute) Abdominal pain (Acute) Hypocalcemia (Acute) SOB (shortness of breath) (Acute) Bronchitis (Acute) Laceration of finger of left hand (Acute) Finger fracture, left (Acute) Hypoxia (Acute) COPD exacerbation (Acute) Mild congestive heart failure (Acute) Plan of Treatment: Continue with present treatment and follow up plan. Pt is to keep follow up appointment as instructed and take medications as ordered. Discharge Medications Discharge Medications: No Known Drug Allergies Allergy (Verified 06/02/18 17:31) CONTINUE taking the following medications Trelegy Ellipta 1 inh INHALATION DAILY 05/12/21 [History] benzonatate 100 mg PO TID PRN 05/12/21 [History] prednisone 10 mg PO DAILY 05/12/21 [History] Follow up and Referral Follow Up: 1 Week Discharge Disposition Assessment: No acute distress noted at time of discharge. Discharge Disposition: Home Discharge Condition: Stable Discharge Plan Discharge Plan Hospital Course: Pt is a 81 year old male past medical history of COPD, CABG, HFrEF, Hypertension, admitted for COVID-19 pneumonia with hypoxia, Acute respiratory failure, and Acute renal failure. Pt's hospital/treatment course included: IVF NS, Remdesivir, IV Solumedrol, scheduled Bronchodilators, Antibiotics: IV Rocephin, immune supporting supplements, supplemental O2, Lovenox 30mg BID, SSI, I/S, Respiratory therapy consult, Pneumonia protocol. Supplemental oxygen that initially was at heated high flow but able to be weaned down to 3L nasal cannula. Pt did have a positive blood culture: for Serratia Marcescens susceptible to IV Rocephin. Repeat blood cultures negative. Pt responded well to treatments. He was discharged in stable condition with requirement of 3L nasal cannula supplemental oxygen. He will receive another 6 days of IV antibiotics for bacteremia via home visiting nurse. Instructed to follow up with pcp in 3-5 days. Patient Disposition: HOME HEALTH SERVICE Condition: Stable Health Concerns: Post Hospitalization: new medications and changes needed to prevent readmission or further decline. Pt educated and given instructions on all concerns. Care Plan Goals: Problem: Infection Goal: Temperature within normal limits. Resolved infection. Instructions: Follow provided instructions. Follow up with primary physician as directed. Contact primary care physician or report to the closest Emergency Room if condition worsens. Plan of Treatment: Continue with present treatment and follow up plan. Pt is to keep follow up appointment as instructed and take medications as ordered. Assessment: No acute distress noted at time of discharge. Prescriptions: Continued metoprolol succinate 100 MG tablet extended release 24 hr 100 mg PO DAILY RF: 0 aspirin 325 MG tablet,delayed release (DR/EC) 325 mg PO DAILY RF: 0 amlodipine 10 MG tablet 10 mg PO DAILY RF: 0 ipratropium-albuterol 0.5 mg-3 mg(2.5 mg base)/3 mL solution for nebulization 2.5 ml INHALATION Q4HR PRN (Reason: Shortness Of Breath) RF: 0 potassium chloride 20 mEq tablet,ER particles/crystals 20 meq PO DAILY RF: 0 albuterol sulfate 90 mcg/actuation HFA aerosol inhaler 90 mcg INHALATION PRN PRN (Reason: Shortness Of Breath) RF: 0 simvastatin 10 mg tablet 10 mg PO HS RF: 0 furosemide 40 mg tablet 40 mg PO DAILY RF: 0 alprazolam 0.5 mg tablet 0.5 mg PO Q6H PRN (Reason: Anxiety) RF: 0 famotidine 20 mg tablet 20 mg PO BID RF: 0 oxycodone-acetaminophen 10-325 mg tablet 1 tab PO BID RF: 0 prednisone 10 mg tablet 10 mg PO DAILY RF: 0 benzonatate 100 mg Capsule 100 mg PO TID PRN (Reason: Cough) RF: 0 Trelegy Ellipta 200-62.5-25 mcg Blister With Device 1 inh INHALATION DAILY RF: 0 Follow ups/Referrals Follow ups/Referrals: John Mcnair [Primary Care Provider] - 05/26/21 2:40 pm Instructions Instructions: Shortness of Breath, Adult, [id number], PICC Insertion, Care After, Home Oxygen Use, Adult, Steps to Quit Smoking, [id number], Hypoxia, Prone Position Therapy, How to Wear and Take Off Your Mask - CDC (07/25/2020), Health Risks of Smoking, COVID-19: Quarantine vs. Isolation - CDC (04/11/2020), Steps to Quit Smoking
[2021-05-19] MEDS: PULMICORT NEB TX 0.5 MG NEB SCH (09:35)
[2021-05-19] MEDS: BROVANA IN SCH (09:35)
[2021-05-19] MEDS ORDERED: TOPROL XL PO ONE (10:40)
[2021-05-19] MEDS: LOVENOX INJ 30 MG SYR SC SCH (11:03)
[2021-05-19] MEDS: ZINC SULFATE PO SCH (11:03)
[2021-05-19] MEDS: VITAMIN D3 125 mcg (5,000 UNITS) PO SCH (11:03)
[2021-05-19] MEDS: SOLU-Medrol 40 MG VIAL IVP SCH (11:03)
[2021-05-19] MEDS: ROCEPHIN 1 GRAM IV PREMIX 1 G/50 ML IV.SOLN. IV SCH (11:03)
[2021-05-19] MEDS: TUSSIONEX PENNKINETIC SUSP PO PRN (11:03)
[2021-05-19] MEDS: LASIX PO SCH (11:05)
[2021-05-19] MEDS: ECOTRIN TAB 325 MG PO SCH (11:05)
[2021-05-19] MEDS: NORVASC TAB 10 MG PO SCH (11:05)
[2021-05-19] MEDS: XANAX PO PRN (11:06)
== END 2021-05-19 14:50 | disposition home health service (06) | DRG 177 ==
LOC: ER 10:40 → ICU 13:59
PROVIDERS: ADMIT Family Medicine; ATTEND Family Medicine

== ENCOUNTER 2021-10-09 14:46 | Observation (INO) ==
[2021-10-09 15:09] VITALS: BMI 33.3
[2021-10-09 15:09] LABS: ABG BASE EXCESS 12.1 mmol/L (-2.0-2.0)
[2021-10-09 15:10] LABS: ABG ALLEN TEST POS; ABG HCO3 38.9 mmol/L (22-26)
[2021-10-09] MEDS ORDERED: LASIX IVP ONE ×2 (15:14→15:19)
--- NOTE | 2021-10-09 15:19 | DR.GENAD ---
HPI Time Seen Time Seen by Provider: 10/09/21 14:56 PCP Primary Care Physician: DR ZAVALA Complaint/Symptoms Chief Complaint Doctors Comments: 81 y/o male presents for evaluation. Having worsening surtness of breath. Had Covid 04/2021, has a h/o COPD. Was hospitalized at another facility since Covid for fluid overload. Has had weight gain of several pounds over the past few days. Having exertional dyspnea, swelling of his legs. Has a cough, non productive. Denies fever, chills, chest pain, nausea or vomiting. Chief Complaint:: PT C/O 3-4 DAYS OF PROGRESSIVELY WORSENING SHORTNESS OF BREATH THAT IS WORSE WITH EXERTION. PT ALSO REPORTS RECENT WEIGHT GAIN OF "A FEW" POUNDS OVER THE PAST 3 DAYS. DENIES ANY FEVER, PAIN OR COUGH. COVID-19 Coronavirus risk:travel/contact w/high risk person: No Has patient experienced Coronavirus symptoms: No Nurses notes reviewed Nurses Notes Review: Yes Source History Provided: Patient and Family Member Mode of Arrival Mode of Arrival: Ambulatory Timing Onset of Chief Complaint: 10/06/21 PMH PMH Past Medical History: Yes Past Medical History: CHF, COPD, Coronary Artery Disease, Dyslipidemia and Hypertension Past Surgical History: Yes Surgical History: CABG/Valve Surgery Past Surgical History Comment: BACK SURGERY Family History History of Family Medical Conditions: Yes Family Medical History: GA and Coronary Artery Disease Social History Does patient currently use any type of tobacco product: No Have you used tobacco products in the last 12 months: No Type of Tobacco Use: Cigarettes Does any household member use tobacco: No Alcohol Use: None Do you use any recreational Drugs:: No Lives With: Family Lives Where: Home Travel Risk Coronavirus risk:travel/contact w/high risk person: No Has patient experienced Coronavirus symptoms: No Infectious screening In the last 2 months have you had wt loss of >10#?: NO Have you had fever, night sweats or hemotysis?: No Have you traveled outside the country in the last 6 months?: No Isolation: Standard ROS Review of Systems Constitutional: Weakness Eyes: No Symptoms Reported ENTM: No Symptoms Reported Respiratoy: Dry Cough and Short of Breath Cardiovascular: Edema Gastrointestinal/Abdominal: No Symptoms Reported Genitourinary: No Symptoms Reported Neurological: No Symptoms Reported Musculoskeletal: No Symptoms Reported Integumentary: No Symptoms Reported Hematologic/Lymphatic: No Symptoms Reported Psychiatric: No Symptoms Reported All Other Systems: Reviewed and Negative PE Vital Signs Vitals: Temperature 98.1 F Pulse Rate 109 Respiratory Rate 25 Blood Pressure [Left Arm] 130/68 Blood Pressure 134/74 O2 Sat by Pulse Oximetry 90 General Limitations: No Limitations General Appearance: Alert and In No Apparent Distress (at rest, on O2.) Head Head Exam: Normal Inspection Eyes Eye exam: PERRL and EOMI ENT ENT Exam: Normal Exam and Mucous Membranes Moist Nose Exam: Normal Nose Exam Throat Exam: Normal Inspection Neck Neck Exam: Normal Inspection and Full ROM Chest Chest Inspection: Normal Inspection Respiratory Respiratory Exam: Normal Lung Sounds Bilat; negative Accessory Muscle Use and Respiratory Distress Respiratory Exam: Bilateral: Clear to Auscultation Cardiovascular Cardiovascular Exam: Regular Rate, Normal Rhythm and Normal Heart Sounds Abdominal Exam Abdominal Exam: Normal Inspection, Normal Bowel Sounds and Soft; negative Tenderness Extremities Extremities Exam: Edema (bilateral lower exts, 2+) Neurologic Neurological Exam: Alert, Oriented X3 and CN II-XII Intact; negative Motor Sensory Deficit Psychiatric Psychiatric Exam: Normal Affect Skin Skin Exam: Warm and Dry MDM Differential Diagnosis Differential Diagnosis: exacerbation COPD, CHF, pneumonia COURSE Treatment Treatment: 81 y/o male, h/o COPD, CHF, and Covid 5 months ago, presents with worsening dyspnea, especially on exertion. W/u initiated. CXR with COPD changes, mild increased vascular congestion, with increased markings of RML, chronic scar, vs chronic Covid change, vs developing pneumonia. Labs with mild bump in BNP (101). CBC, CMP acceptable. ABG with elevated pCO2 of 60, low pO2. Givne IV lasix. Recommend admission in view of worsening dyspnea, despite home O2. Discussed with his attneding, Dr Zavala, accepts the admission. Will cover the chest with IV rocephin. Will give IV steroids, IV lasix, respiratory treatments, and IV lasix. ROR Labs Reviewed Laboratory Results Reviewed?: Yes Result Diagrams: 10/09/21 14:14 10/09/21 14:14 Laboratory: WBC 10.3 X10^3/uL (3.6-10.0) H 10/09/21 14:14 RBC 4.50 X10^6/uL (4.7-6.0) L 10/09/21 14:14 Hgb 13.0 g/dL (13.5-18.0) L 10/09/21 14:14 Hct 38.7 % (42.0-54.0) L 10/09/21 14:14 MCV 85.9 fL (80.0-100.0) 10/09/21 14:14 MCH 28.8 pg (27.0-34.0) 10/09/21 14:14 MCHC 33.5 g/dL (33.0-35.0) 10/09/21 14:14 RDW 16.2 % (11.6-16.5) 10/09/21 14:14 Plt Count 133 X10^3/uL (150.0-450.0) L 10/09/21 14:14 MPV 8.8 fL (7.4-11.0) 10/09/21 14:14 Neut % (Auto) 55.9 % (42.0-75.0) 10/09/21 14:14 Lymph % (Auto) 31.6 % (21.0-51.0) 10/09/21 14:14 [place] % (Auto) 10.4 % (0.0-13.0) 10/09/21 14:14 Eos % (Auto) 1.3 % (0.9-2.9) 10/09/21 14:14 Baso % (Auto) 0.8 % (0.2-1.0) 10/09/21 14:14 Neut # (Auto) 5.8 x10^3/uL (2.2-4.8) H 10/09/21 14:14 Lymph # (Auto) 3.3 X10^3/uL (1.3-2.9) H 10/09/21 14:14 [place] # (Auto) 1.1 x10^3/uL (0.3-0.8) H 10/09/21 14:14 Eos # (Auto) 0.1 x10^3/uL (0.0-0.2) 10/09/21 14:14 Baso # (Auto) 0.1 X10^3/uL (0.0-0.1) 10/09/21 14:14 Absolute Nucleated RBC 0.1 /100WBC 10/09/21 14:14 Sample Site Rra 10/09/21 15:07 ABG pH 7.420 (7.35-7.45) 10/09/21 15:07 ABG pCO2 60.0 mmHg (35.0-45.0) H* 10/09/21 15:07 ABG pO2 53.0 mmHg (80.0-100.0) L 10/09/21 15:07 ABG HCO3 38.9 mmol/L (22-26) H* 10/09/21 15:07 ABG O2 Saturation 88.0 % (90-100) L 10/09/21 15:07 ABG Base Excess 12.1 mmol/L (-2.0-2.0) H 10/09/21 15:07 Anselmo Test Pos 10/09/21 15:07 A-a Gradient 129.0 mmHg 10/09/21 15:07 FiO2 36.0 10/09/21 15:07 Blood Gas Comments Pt rosa well eb 10/09/21 15:07 Sodium 142 mmol/L (136-145) 10/09/21 14:14 Corrected Sodium TNP 10/09/21 14:14 Potassium 3.7 mmol/L (3.5-5.1) 10/09/21 14:14 Chloride 101 mmol/L (98-107) 10/09/21 14:14 Carbon Dioxide 37.9 mmol/L (21-32) H 10/09/21 14:14 BUN 21 mg/dL (7-18) H 10/09/21 14:14 Creatinine 1.18 mg/dL (0.70-1.30) 10/09/21 14:14 Est GFR (MDRD) Af Amer > 60 (>60) 10/09/21 14:14 Est GFR (MDRD) Non-Af > 60 (>60) 10/09/21 14:14 Glucose 98 mg/dL (65-99) 10/09/21 14:14 Calcium 8.5 mg/dL (8.5-10.1) 10/09/21 14:14 Corrected Calcium TNP 10/09/21 14:14 Total Bilirubin 0.20 mg/dL (0.2-1.0) 10/09/21 14:14 AST 22 Units/L (15-37) 10/09/21 14:14 ALT 27 Units/L (12-78) 10/09/21 14:14 Alkaline Phosphatase 79 Units/L (46-116) 10/09/21 14:14 Creatine Kinase 48 Units/L (39-308) 10/09/21 14:14 CK-MB (CK-2) 1.6 ng/mL (0-4.0) 10/09/21 14:14 CK/CKMB % Calc 3.3 % (<4) 10/09/21 14:14 Troponin I High Sens 31.7 ng/L (4.0-60.0) 10/09/21 14:14 B-Natriuretic Peptide 101 pg/mL (0-79) H 10/09/21 14:14 Total Protein 7.7 g/dL (6.4-8.2) 10/09/21 14:14 Albumin 3.4 g/dL (3.4-5.0) 10/09/21 14:14 Globulin 4.3 g/dL (2.5-4.5) 10/09/21 14:14 Albumin/Globulin Ratio 0.8 Ratio (1.1-2.1) L 10/09/21 14:14 EKG Rate: 99 [place]: Normal Rhythm: NSR Block: RBBB (incomplete) Hypertrophy: None ST: Nonsp Opioid Opioid Risk Tool Age (Gautam box if 16-45): No History of Preadolescent Sexual Abuse: No Total: 0 Total Score Risk Category: Low Risk Copyright: Maycol SANDOVAL predicting aberrant behaviors Diagnosis Discharge Problem: COPD exacerbation, Mild congestive heart failure
[2021-10-09 15:23] LABS: BASOPHILS # (AUTO) 0.1 X10^3/uL (0.0-0.1); BASOPHILS % (AUTO) 0.8 % (0.2-1.0); EOSINOPHILS # (AUTO) 0.1 x10^3/uL (0.0-0.2); EOSINOPHILS % (AUTO) 1.3 % (0.9-2.9); HEMATOCRIT 38.7 % (42.0-54.0); LYMPHOCYTES # (AUTO) 3.3 X10^3/uL (1.3-2.9); LYMPHOCYTES % (AUTO) 31.6 % (21.0-51.0); MEAN CORPUSCULAR HEMOGLOBIN 28.8 pg (27.0-34.0); MEAN CORPUSCULAR HGB CONC 33.5 g/dL (33.0-35.0); MEAN CORPUSCULAR VOLUME 85.9 fL (80.0-100.0); MEAN PLATELET VOLUME 8.8 fL (7.4-11.0); MONOCYTES # (AUTO) 1.1 x10^3/uL (0.3-0.8); MONOCYTES % (AUTO) 10.4 % (0.0-13.0); NEUTROPHILS # (AUTO) 5.8 x10^3/uL (2.2-4.8); NEUTROPHILS % (AUTO) 55.9 % (42.0-75.0); RED CELL DISTRIBUTION WIDTH 16.2 % (11.6-16.5); WHITE BLOOD COUNT 10.3 X10^3/uL (3.6-10.0)
[2021-10-09 15:42] LABS: ALANINE AMINOTRANSFERASE 27 Units/L (12-78); ALBUMIN 3.4 g/dL (3.4-5.0); ALKALINE PHOSPHATASE 79 Units/L (46-116); ASPARTATE AMINO TRANSFERASE 22 Units/L (15-37); BLOOD UREA NITROGEN 21 mg/dL (7-18); CALCIUM 8.5 mg/dL (8.5-10.1); CARBON DIOXIDE 37.9 mmol/L (21-32); CHLORIDE 101 mmol/L (98-107); CKMB % 3.3 % (<4); CREATINE KINASE 48 Units/L (39-308); CREATINE KINASE MB 1.6 ng/mL (0-4.0); CREATININE 1.18 mg/dL (0.70-1.30); SODIUM 142 mmol/L (136-145); TOTAL PROTEIN 7.7 g/dL (6.4-8.2); eGFR NON BLACK RACES > 60 (>60)
[2021-10-09] MEDS ORDERED: SOLU-Medrol 125 MG VIAL IVP ONE (16:54)
[2021-10-09] MEDS ORDERED: SOLU-Medrol 125 MG VIAL ONE (16:59)
--- NOTE | 2021-10-09 17:04 | RAD ---
HISTORYDYSPNEA Relevant Clinical InformationSTUDYCHEST, 1 VIEWCOMPARMer[facility]uary 2021.FINDINGSThe trachea is midline. The cardiomediastinal silhouette is enlarged; status post median sternotomy. Background changes of chronic bronchitis/COPD are observed with residual airspace opacities/parenchymal opacities in the right midlung zone right lower lobe. This can be seen with a chronic infection/pneumonia which should be followed up with CT imaging of the chest when feasible, given its persistence, in order to exclude the possibility of malignancy. No other cardiopulmonary changes seen. No pneumothorax is seen. The bones are grossly intact.IMPRESSIONAs above.Electronically signed by: JADE HINSON III (Oct 09, 2021 17:02:57)
[2021-10-09] MEDS ORDERED: VENTOLIN or PROAIR HFA IN PRN (17:51)
[2021-10-09] MEDS ORDERED: PATIENT'S HOME MEDICATION (Alprazolam 0.5 mg tablet) PO PRN (17:51)
[2021-10-09] MEDS ORDERED: XANAX PO PRN ×2 (18:21→19:00)
[2021-10-09] MEDS ORDERED: DUONEB 0.5 MG/3 MG (3 mL) NEB ONE ×2 (18:22→19:11)
[2021-10-09] MEDS: LASIX IVP SCH (18:28)
[2021-10-09] MEDS ORDERED: PULMICORT NEB TX 0.5 MG NEB ONE (19:11)
[2021-10-09] MEDS ORDERED: NS 50 ML IV 50 ML IV ONE (19:14)
[2021-10-09] MEDS ORDERED: ROCEPHIN VIAL 1 GRAM ONE (19:14)
[2021-10-09] MEDS ORDERED: VENTOLIN or PROAIR HFA ONE (19:22)
[2021-10-09] MEDS: ROCEPHIN 1 GRAM IV PREMIX 1 G/50 ML IV.SOLN. IV SCH (19:39)
[2021-10-09] MEDS: DUONEB 0.5 MG/3 MG (3 mL) NEB SCH (20:00)
[2021-10-09] MEDS: PULMICORT NEB TX 0.5 MG NEB SCH (20:00)
[2021-10-09] MEDS ORDERED: DUONEB 0.5 MG/3 MG (3 mL) NEB SCH (21:00)
[2021-10-09] MEDS ORDERED: ZOCOR TAB 10 MG PO SCH (21:00)
[2021-10-09] MEDS: SOLU-Medrol 40 MG VIAL IVP SCH (21:22)
[2021-10-10] MEDS: DUONEB 0.5 MG/3 MG (3 mL) NEB SCH ×3 (00:15→09:20)
[2021-10-10 04:39] VITALS: BP 156/62
[2021-10-10 05:09] LABS: BASOPHILS % (AUTO) 0.2 % (0.2-1.0); EOSINOPHILS % (AUTO) 0.1 % (0.9-2.9); HEMATOCRIT 37.3 % (42.0-54.0); HEMOGLOBIN 12.5 g/dL (13.5-18.0); LYMPHOCYTES % (AUTO) 13.5 % (21.0-51.0); MEAN CORPUSCULAR HEMOGLOBIN 28.4 pg (27.0-34.0); MEAN CORPUSCULAR HGB CONC 33.5 g/dL (33.0-35.0); MEAN CORPUSCULAR VOLUME 84.7 fL (80.0-100.0); MEAN PLATELET VOLUME 9.1 fL (7.4-11.0); MONOCYTES # (AUTO) 0.1 x10^3/uL (0.3-0.8); MONOCYTES % (AUTO) 0.9 % (0.0-13.0); NEUTROPHILS % (AUTO) 85.3 % (42.0-75.0); RED CELL DISTRIBUTION WIDTH 16.2 % (11.6-16.5)
[2021-10-10 05:31] LABS: ALANINE AMINOTRANSFERASE 24 Units/L (12-78); ALKALINE PHOSPHATASE 69 Units/L (46-116); ASPARTATE AMINO TRANSFERASE 21 Units/L (15-37); BLOOD UREA NITROGEN 22 mg/dL (7-18); CALCIUM 8.4 mg/dL (8.5-10.1); CHLORIDE 101 mmol/L (98-107); COR CA(FOR HYPOALB) 9.2 mg/dL (8.5-10.1); COR NA(FOR HYPERGLY) 142 mmol/L (136-145); CREATININE 1.23 mg/dL (0.70-1.30); SODIUM 140 mmol/L (136-145); TOTAL PROTEIN 6.9 g/dL (6.4-8.2); eGFR NON BLACK RACES > 60 (>60)
[2021-10-10] MEDS: SOLU-Medrol 40 MG VIAL IVP SCH (05:52)
[2021-10-10] MEDS ORDERED: TOPROL XL PO ONE (08:11)
[2021-10-10] MEDS: LASIX IVP SCH (08:31)
[2021-10-10] MEDS: ROCEPHIN 1 GRAM IV PREMIX 1 G/50 ML IV.SOLN. IV SCH (08:32)
[2021-10-10] MEDS ORDERED: NORVASC TAB 10 MG PO SCH (09:00)
[2021-10-10] MEDS ORDERED: FLOMAX PO SCH (09:00)
[2021-10-10] MEDS ORDERED: ECOTRIN TAB 325 MG PO SCH (09:00)
[2021-10-10] MEDS ORDERED: XALATAN OP SCH (09:00)
[2021-10-10] MEDS ORDERED: TOPROL XL PO SCH (09:00)
[2021-10-10] MEDS ORDERED: K-DUR TAB 20 MEQ PO SCH (09:00)
--- NOTE | 2021-10-10 09:16 | DR.SSS ---
SHORT STAY SUMMARY Admission Date Date of Admission: 10/09/21 Discharge Date Discharge Date: 10/10/21 Admission Diagnoses Admission Diagnoses: CHF exacerbation COPD exacerbation Discharge Diagnoses Discharge Diagnoses: COPD exacerbation CHF exacerbation Chief Complaint Chief Complaint: Shortness of breath Swelling History of Present Illness History of Present Illness: Pt is a 81 year old male past medical history of COPD, CABG, CHF, Hypertension presenting with shortness of breath, abdominal and lower extremity swelling. His symptoms got worse yesterday when home nurse noticed his abdomen was distended and his pulse ox had decreased to low 80s while ambulating with oxygen. Labs/imaging: Wbc 10.3>7, Hgb 12.5, Plt 120, Na 140, K 4.0, Creatinine 1.23, Glucose 180, COVID-19 negative, ABG: pH 7.42, pCO2 60, pO2 53, HCO3 38, O2sat 88% on FiO2 36%. CXR: Background changes of chronic bronchitis/COPD are observed with residual airspace opacities/parenchymal opacities in the right midlung. Pt was admitted for CHF exacerbation and COPD exacerbation. Past Medical History Past Medical History: CHF, COPD, Coronary Artery Disease, Dyslipidemia and Hypertension Past Surgical History Surgical History: CABG/Valve Surgery Allergies Allergies Allergy/AdvReac Type Severity Reaction Status Date / Time No Known Drug Allergies Allergy Verified 06/02/18 17:31 Medications Home Medications: No Known Drug Allergies Allergy (Verified 06/02/18 17:31) CONTINUE taking the following medications baloxavir marboxil [Xofluza] See Rx Instructions .ROUTE .COMPLEX 10/09/21 [H istory] latanoprost 1 drp OPHTHALMIC (EYE) DAILY 10/09/21 [History] tamsulosin 0.4 mg PO DAILY 10/09/21 [History] Family History Family Medical History: [place] and Coronary Artery Disease Social History Does patient currently use any type of tobacco product: No Have you used tobacco products in the last 12 months: No Type of Tobacco Use: None Does any household member use tobacco: No Alcohol Use: None Drug Use: None Review of Systems Constitutional: No Symptoms Reported Eyes: No Symptoms Reported ENT: No Symptoms Reported Respiratory: Shortness of Breath Cardiovascular: No Symptoms Reported Gastrointestinal: No Symptoms Reported Genitourinary: No Symptoms Reported Musculoskeletal: No Symptoms Reported Skin: No Symptoms Reported Neurological: No Symptoms Reported Physical Exam Vital Signs: Last Vital Signs Temp 97.9 F 06/17/22 07:58 Pulse 108 H 10/10/21 07:58 Resp 22 10/10/21 07:58 BP 152/67 10/10/21 07:58 Pulse Ox 92 L 10/10/21 07:58 Oriented: Normal Eyes: Normal Ear: Normal Nose: Normal Respiratory: Diminished Throughout Cardiovascular: Normal : Normal Auscultation: Bowel Sounds: Normal Palpation: Normal Tenderness: Normal Skin: Normal Musculoskeletal: Normal Psychiatric: Normal Mood Description: Calm Speech Pattern: Clear Labs Labs: Laboratory Last Values WBC 7.0 X10^3/uL (3.6-10.0) 10/10/21 04:45 RBC 4.40 X10^6/uL (4.7-6.0) L 10/10/21 04:45 Hgb 12.5 g/dL (13.5-18.0) L 10/10/21 04:45 Hct 37.3 % (42.0-54.0) L 10/10/21 04:45 MCV 84.7 fL (80.0-100.0) 10/10/21 04:45 MCH 28.4 pg (27.0-34.0) 10/10/21 04:45 MCHC 33.5 g/dL (33.0-35.0) 10/10/21 04:45 RDW 16.2 % (11.6-16.5) 10/10/21 04:45 Plt Count 120 X10^3/uL (150.0-450.0) L 10/10/21 04:45 MPV 9.1 fL (7.4-11.0) 10/10/21 04:45 Neut % (Auto) 85.3 % (42.0-75.0) H 10/10/21 04:45 Lymph % (Auto) 13.5 % (21.0-51.0) L 10/10/21 04:45 [place] % (Auto) 0.9 % (0.0-13.0) 10/10/21 04:45 Eos % (Auto) 0.1 % (0.9-2.9) L 10/10/21 04:45 Baso % (Auto) 0.2 % (0.2-1.0) 10/10/21 04:45 Neut # (Auto) 6.0 x10^3/uL (2.2-4.8) H 10/10/21 04:45 Lymph # (Auto) 1.0 X10^3/uL (1.3-2.9) L 10/10/21 04:45 [place] # (Auto) 0.1 x10^3/uL (0.3-0.8) L 10/10/21 04:45 Eos # (Auto) 0.0 x10^3/uL (0.0-0.2) 10/10/21 04:45 Baso # (Auto) 0.0 X10^3/uL (0.0-0.1) 10/10/21 04:45 Absolute Nucleated RBC 0.2 /100WBC 10/10/21 04:45 Sample Site Rra 10/09/21 15:07 ABG pH 7.420 (7.35-7.45) 10/09/21 15:07 ABG pCO2 60.0 mmHg (35.0-45.0) H* 10/09/21 15:07 ABG pO2 53.0 mmHg (80.0-100.0) L 10/09/21 15:07 ABG HCO3 38.9 mmol/L (22-26) H* 10/09/21 15:07 ABG O2 Saturation 88.0 % (90-100) L 10/09/21 15:07 ABG Base Excess 12.1 mmol/L (-2.0-2.0) H 10/09/21 15:07 Anselmo Test Pos 10/09/21 15:07 A-a Gradient 129.0 mmHg 10/09/21 15:07 FiO2 36.0 10/09/21 15:07 Blood Gas Comments Pt rosa well eb 10/09/21 15:07 Sodium 140 mmol/L (136-145) 10/10/21 04:45 Corrected Sodium 142 mmol/L (136-145) 10/10/21 04:45 Potassium 4.0 mmol/L (3.5-5.1) 10/10/21 04:45 Chloride 101 mmol/L (98-107) 10/10/21 04:45 Carbon Dioxide 36.0 mmol/L (21-32) H 10/10/21 04:45 BUN 22 mg/dL (7-18) H 10/10/21 04:45 Creatinine 1.23 mg/dL (0.70-1.30) 10/10/21 04:45 Est GFR (MDRD) Af Amer > 60 (>60) 10/10/21 04:45 Est GFR (MDRD) Non-Af > 60 (>60) 10/10/21 04:45 Glucose 180 mg/dL (65-99) H 10/10/21 04:45 POC Glucose (mg/dL) 232 mg/dL (65-99) H 10/09/21 20:16 Calcium 8.4 mg/dL (8.5-10.1) L 10/10/21 04:45 Corrected Calcium 9.2 mg/dL (8.5-10.1) 10/10/21 04:45 Total Bilirubin 0.20 mg/dL (0.2-1.0) 10/10/21 04:45 AST 21 Units/L (15-37) 10/10/21 04:45 ALT 24 Units/L (12-78) 10/10/21 04:45 Alkaline Phosphatase 69 Units/L (46-116) 10/10/21 04:45 Creatine Kinase 48 Units/L (39-308) 10/09/21 14:14 CK-MB (CK-2) 1.6 ng/mL (0-4.0) 10/09/21 14:14 CK/CKMB % Calc 3.3 % (<4) 10/09/21 14:14 Troponin I High Sens 31.7 ng/L (4.0-60.0) 10/09/21 14:14 B-Natriuretic Peptide 101 pg/mL (0-79) H 10/09/21 14:14 Total Protein 6.9 g/dL (6.4-8.2) 10/10/21 04:45 Albumin 3.0 g/dL (3.4-5.0) L 10/10/21 04:45 Globulin 3.9 g/dL (2.5-4.5) 10/10/21 04:45 Albumin/Globulin Ratio 0.8 Ratio (1.1-2.1) L 10/10/21 04:45 SARS-CoV-2 (PCR) Negative (NEGATIVE) 10/09/21 16:42 Assessment/Plan (1) COPD exacerbation: (2) Mild congestive heart failure: Hospital Course Hospital Course: Pt was started on IV solumedrol Q8h, IV lasix 40mg BID, and IV rocephin daily, along with scheduled bronchodilators. He responded well to treatments and during morning examination appeared to be back to baseline. Pt at baseline home oxygen requirement of 3L nasal cannula. Pt abdominal distention resolved as well as lower extremity edema. Echo ordered and results will be followed outpatient. Referral to cardiology placed, case management to arrange. Pt discharged in stable condition. Rx cefdinir and lasix 40mg BID. Instructed to follow up with pcp in 3-5 days. Discharge Medications Discharge Medications: Home Medication List baloxavir marboxil [Xofluza] See Rx Instructions .ROUTE .COMPLEX 10/09/21 [History] latanoprost 1 drp OPHTHALMIC (EYE) DAILY 10/09/21 [History] tamsulosin 0.4 mg PO DAILY 10/09/21 [History] Prescriptions: Discharge Disposition Discharge Disposition: Home
[2021-10-10] MEDS: PULMICORT NEB TX 0.5 MG NEB SCH (09:20)
[2021-10-10] MEDS ORDERED: LOVENOX INJ 40 MG SYR SC SCH (11:00)
== END 2021-10-10 13:05 | disposition home or self-care (01) ==
LOC: ER 14:46 → INTOOBSV 16:50 → MED/SURG 16:50
PROVIDERS: ADMIT Family Medicine; ATTEND Family Medicine
DX: I50.9 Heart failure, unspecified; J44.1 Chronic obstructive pulmonary disease with (acute) exacerbation; Z86.16 Personal history of COVID-19; I25.10 Atherosclerotic heart disease of native coronary artery without angina pectoris; I11.0 Hypertensive heart disease with heart failure; Z99.81 Dependence on supplemental oxygen; Z20.822 Contact with and (suspected) exposure to COVID-19; E11.65 Type 2 diabetes mellitus with hyperglycemia; E78.2 Mixed hyperlipidemia

== ENCOUNTER 2021-11-14 16:38 | Inpatient (IN) ==
--- NOTE | 2021-11-14 16:42 | DR.GENAD ---
HPI <Olman Shipley - Last Filed: 11/21/21 08:34> Time Seen Time Seen by Provider: 11/14/21 16:41 Complaint/Symptoms Chief Complaint Doctors Comments: PROGRESSIVE SHORTNESS OF BREATH. H/O CHF AND COPD. <Josefina Saunders - Last Filed: 11/15/21 04:10> HPI Comment HPI Comment: In with friend reporting worsening sob over the past few weeks despite using home oxygen; some cough and congestion but no fever, chills, abd pain, n/v/d; hx chf and copd which has worsened since covid in March at which time he was discharged with oxygen. PMH <Olman Shipley - Last Filed: 11/21/21 08:34> PMH Past Medical History: CHF, COPD, Coronary Artery Disease, Dyslipidemia and Hypertension Past Surgical History: Yes Surgical History: CABG/Valve Surgery Family History Family Medical History: [place] and Coronary Artery Disease Social History Do you use any recreational Drugs:: No <Josefina Chip - Last Filed: 11/15/21 04:10> Review of Systems Constitutional: No Symptoms Reported Eyes: No Symptoms Reported ENTM: No Symptoms Reported Respiratoy: See HPI Cardiovascular: No Symptoms Reported Gastrointestinal/Abdominal: No Symptoms Reported Genitourinary: No Symptoms Reported Neurological: No Symptoms Reported Musculoskeletal: No Symptoms Reported Integumentary: No Symptoms Reported Hematologic/Lymphatic: No Symptoms Reported Endocrine: No Symptoms Reported Psychiatric: No Symptoms Reported PE <Olman Shipley - Last Filed: 11/21/21 08:34> Vital Signs Vitals: Temperature 98.0 F Pulse Rate 98 Respiratory Rate 22 Blood Pressure [Right Arm] 129/62 Blood Pressure [Left Arm] 156/62 Blood Pressure 116/57 O2 Sat by Pulse Oximetry 73 <Josefina Saunders - Last Filed: 11/15/21 04:10> Vital Signs Vitals: Temperature 98.0 F Pulse Rate 98 Respiratory Rate 22 Blood Pressure [Right Arm] 129/62 Blood Pressure [Left Arm] 156/62 Blood Pressure 116/57 O2 Sat by Pulse Oximetry 73 General Limitations: No Limitations General Appearance: Alert and In No Apparent Distress Head Head Exam: Normal Inspection Eyes Eye exam: Normal Appearance ENT ENT Exam: Normal Exam External Ear Exam: Normal External Inspection TM/Canal Exam: Bilateral: Normal Nose Exam: Normal Nose Exam Mouth Exam: Normal Inspection Throat Exam: Normal Inspection Neck Neck Exam: Normal Inspection Chest Chest Inspection: Normal Inspection Respiratory Respiratory Exam: Normal Lung Sounds Bilat Respiratory Exam: Bilateral: Clear to Auscultation Cardiovascular Cardiovascular Exam: Regular Rate and Normal Rhythm Abdominal Exam Abdominal Exam: Normal Inspection, Normal Bowel Sounds and Soft Extremities Extremities Exam: Normal Inspection Back Back Exam: Normal Inspection Neurologic Neurological Exam: Alert and Oriented X3 Psychiatric Psychiatric Exam: Normal Affect and Normal Mood Skin Skin Exam: Warm, Dry, Intact and Normal Color <Josefina Saunders - Last Filed: 11/15/21 04:10> Differential Diagnosis Differential Diagnosis: chf, copd, pneumonia <Josefina Saunders - Last Filed: 11/15/21 04:10> Reevaluation 1st: Unchanged ROR <Olman Shipley - Last Filed: 11/21/21 08:34> Labs Reviewed Result Diagrams: 11/18/21 05:26 11/18/21 05:26 Laboratory: WBC 8.6 X10^3/uL (3.6-10.0) 11/14/21 17:35 RBC 4.31 X10^6/uL (4.7-6.0) L 11/14/21 17:35 Hgb 12.4 g/dL (13.5-18.0) L 11/14/21 17:35 Hct 36.6 % (42.0-54.0) L 11/14/21 17:35 MCV 85.1 fL (80.0-100.0) 11/14/21 17:35 MCH 28.7 pg (27.0-34.0) 11/14/21 17:35 MCHC 33.8 g/dL (33.0-35.0) 11/14/21 17:35 RDW 17.3 % (11.6-16.5) H 11/14/21 17:35 Plt Count 186 X10^3/uL (150.0-450.0) 11/14/21 17:35 MPV 8.4 fL (7.4-11.0) 11/14/21 17:35 Neut % (Auto) 70.3 % (42.0-75.0) 11/14/21 17:35 Lymph % (Auto) 15.4 % (21.0-51.0) L 11/14/21 17:35 [place] % (Auto) 9.7 % (0.0-13.0) 11/14/21 17:35 Eos % (Auto) 3.7 % (0.9-2.9) H 11/14/21 17:35 Baso % (Auto) 0.9 % (0.2-1.0) 11/14/21 17:35 Neut # (Auto) 6.0 x10^3/uL (2.2-4.8) H 11/14/21 17:35 Lymph # (Auto) 1.3 X10^3/uL (1.3-2.9) 11/14/21 17:35 [place] # (Auto) 0.8 x10^3/uL (0.3-0.8) 11/14/21 17:35 Eos # (Auto) 0.3 x10^3/uL (0.0-0.2) H 11/14/21 17:35 Baso # (Auto) 0.1 X10^3/uL (0.0-0.1) 11/14/21 17:35 Absolute Nucleated RBC 0.1 /100WBC 11/14/21 17:35 Sample Site Right radial 11/14/21 16:52 ABG pH 7.410 (7.35-7.45) 11/14/21 16:52 ABG pCO2 64.0 mmHg (35.0-45.0) H* 11/14/21 16:52 ABG pO2 54.0 mmHg (80.0-100.0) L 11/14/21 16:52 ABG HCO3 40.6 mmol/L (22-26) H* 11/14/21 16:52 ABG O2 Saturation 88.0 % (90-100) L 11/14/21 16:52 ABG Base Excess 13.3 mmol/L (-2.0-2.0) H 11/14/21 16:52 Anselmo Test Pos 11/14/21 16:52 A-a Gradient 123.0 mmHg 11/14/21 16:52 FiO2 36.0 11/14/21 16:52 Blood Gas Comments Kelly well 11/14/21 16:52 Sodium 141 mmol/L (136-145) 11/14/21 17:35 Corrected Sodium 143 mmol/L (136-145) 11/14/21 17:35 Potassium 4.2 mmol/L (3.5-5.1) 11/14/21 17:35 Chloride 99 mmol/L (98-107) 11/14/21 17:35 Carbon Dioxide 38.4 mmol/L (21-32) H 11/14/21 17:35 BUN 21 mg/dL (7-18) H 11/14/21 17:35 Creatinine 1.24 mg/dL (0.70-1.30) 11/14/21 17:35 Est GFR (MDRD) Af Amer > 60 (>60) 11/14/21 17:35 Est GFR (MDRD) Non-Af 60 (>60) 11/14/21 17:35 Glucose 198 mg/dL (65-99) H 11/14/21 17:35 Calcium 9.0 mg/dL (8.5-10.1) 11/14/21 17:35 Corrected Calcium 9.6 mg/dL (8.5-10.1) 11/14/21 17:35 Total Bilirubin 0.40 mg/dL (0.2-1.0) 11/14/21 17:35 AST 17 Units/L (15-37) 11/14/21 17:35 ALT 17 Units/L (12-78) 11/14/21 17:35 Alkaline Phosphatase 78 Units/L (46-116) 11/14/21 17:35 B-Natriuretic Peptide 119 pg/mL (0-79) H 11/14/21 17:35 Total Protein 7.9 g/dL (6.4-8.2) 11/14/21 17:35 Albumin 3.3 g/dL (3.4-5.0) L 11/14/21 17:35 Globulin 4.6 g/dL (2.5-4.5) H 11/14/21 17:35 Albumin/Globulin Ratio 0.7 Ratio (1.1-2.1) L 11/14/21 17:35 Cortisol 14.6 ug/dL 11/14/21 17:35 SARS-CoV-2 (PCR) Negative (NEGATIVE) 11/14/21 21:02 <Josefina Saunders - Last Filed: 11/15/21 04:10> Labs Reviewed Laboratory: WBC 8.6 X10^3/uL (3.6-10.0) 11/14/21 17:35 RBC 4.31 X10^6/uL (4.7-6.0) L 11/14/21 17:35 Hgb 12.4 g/dL (13.5-18.0) L 11/14/21 17:35 Hct 36.6 % (42.0-54.0) L 11/14/21 17:35 MCV 85.1 fL (80.0-100.0) 11/14/21 17:35 MCH 28.7 pg (27.0-34.0) 11/14/21 17:35 MCHC 33.8 g/dL (33.0-35.0) 11/14/21 17:35 RDW 17.3 % (11.6-16.5) H 11/14/21 17:35 Plt Count 186 X10^3/uL (150.0-450.0) 11/14/21 17:35 MPV 8.4 fL (7.4-11.0) 11/14/21 17:35 Neut % (Auto) 70.3 % (42.0-75.0) 11/14/21 17:35 Lymph % (Auto) 15.4 % (21.0-51.0) L 11/14/21 17:35 [place] % (Auto) 9.7 % (0.0-13.0) 11/14/21 17:35 Eos % (Auto) 3.7 % (0.9-2.9) H 11/14/21 17:35 Baso % (Auto) 0.9 % (0.2-1.0) 11/14/21 17:35 Neut # (Auto) 6.0 x10^3/uL (2.2-4.8) H 11/14/21 17:35 Lymph # (Auto) 1.3 X10^3/uL (1.3-2.9) 11/14/21 17:35 [place] # (Auto) 0.8 x10^3/uL (0.3-0.8) 11/14/21 17:35 Eos # (Auto) 0.3 x10^3/uL (0.0-0.2) H 11/14/21 17:35 Baso # (Auto) 0.1 X10^3/uL (0.0-0.1) 11/14/21 17:35 Absolute Nucleated RBC 0.1 /100WBC 11/14/21 17:35 Sample Site Right radial 11/14/21 16:52 ABG pH 7.410 (7.35-7.45) 11/14/21 16:52 ABG pCO2 64.0 mmHg (35.0-45.0) H* 11/14/21 16:52 ABG pO2 54.0 mmHg (80.0-100.0) L 11/14/21 16:52 ABG HCO3 40.6 mmol/L (22-26) H* 11/14/21 16:52 ABG O2 Saturation 88.0 % (90-100) L 11/14/21 16:52 ABG Base Excess 13.3 mmol/L (-2.0-2.0) H 11/14/21 16:52 Anselmo Test Pos 11/14/21 16:52 A-a Gradient 123.0 mmHg 11/14/21 16:52 FiO2 36.0 11/14/21 16:52 Blood Gas Comments Kelly well 11/14/21 16:52 Sodium 141 mmol/L (136-145) 11/14/21 17:35 Corrected Sodium 143 mmol/L (136-145) 11/14/21 17:35 Potassium 4.2 mmol/L (3.5-5.1) 11/14/21 17:35 Chloride 99 mmol/L (98-107) 11/14/21 17:35 Carbon Dioxide 38.4 mmol/L (21-32) H 11/14/21 17:35 BUN 21 mg/dL (7-18) H 11/14/21 17:35 Creatinine 1.24 mg/dL (0.70-1.30) 11/14/21 17:35 Est GFR (MDRD) Af Amer > 60 (>60) 11/14/21 17:35 Est GFR (MDRD) Non-Af 60 (>60) 11/14/21 17:35 Glucose 198 mg/dL (65-99) H 11/14/21 17:35 Calcium 9.0 mg/dL (8.5-10.1) 11/14/21 17:35 Corrected Calcium 9.6 mg/dL (8.5-10.1) 11/14/21 17:35 Total Bilirubin 0.40 mg/dL (0.2-1.0) 11/14/21 17:35 AST 17 Units/L (15-37) 11/14/21 17:35 ALT 17 Units/L (12-78) 11/14/21 17:35 Alkaline Phosphatase 78 Units/L (46-116) 11/14/21 17:35 B-Natriuretic Peptide 119 pg/mL (0-79) H 11/14/21 17:35 Total Protein 7.9 g/dL (6.4-8.2) 11/14/21 17:35 Albumin 3.3 g/dL (3.4-5.0) L 11/14/21 17:35 Globulin 4.6 g/dL (2.5-4.5) H 11/14/21 17:35 Albumin/Globulin Ratio 0.7 Ratio (1.1-2.1) L 11/14/21 17:35 Cortisol 14.6 ug/dL 11/14/21 17:35 SARS-CoV-2 (PCR) Negative (NEGATIVE) 11/14/21 21:02 XRAY XRAY Interpreted by: Radiologist X-ray Results: pcxr: Similar bilateral pleural parenchymal opacities. Opioid <Olman Shipley - Last Filed: 11/21/21 08:34> Opioid Risk Tool Age (Gautam box if 16-45): No History of Preadolescent Sexual Abuse: No Total: 0 Total Score Risk Category: Low Risk Copyright: [facility] predicting aberrant behaviors <Josefina Saunders - Last Filed: 11/15/21 04:10> Opioid Risk Tool Total: 0 Total Score Risk Category: Low Risk Discharge Plan Diagnosis Discharge Problem: Sepsis, Hypoxia Bilateral pneumonia Qualifiers: Pneumonia type: due to Klebsiella pneumoniae Lung location: unspecified part of lung Qualified Code(s): J15.0 - Pneumonia due to Klebsiella pneumoniae Acute and chronic respiratory failure Qualifiers: Respiratory failure complication: hypoxia and hypercapnia Qualified Code(s): J96.21 - Acute and chronic respiratory failure with hypoxia Discharge Plan Patient Disposition: 09 ADMITTED INPATIENT Condition: Stable
[2021-11-14 16:59] LABS: ABG BASE EXCESS 13.3 mmol/L (-2.0-2.0)
[2021-11-14 17:00] LABS: ABG ALLEN TEST POS; ABG HCO3 40.6 mmol/L (22-26)
[2021-11-14] MEDS ORDERED: BUMEX INJ 1 MG VIAL IVP ONE (17:07)
--- NOTE | 2021-11-14 17:37 | RAD ---
HISTORYPT C/O PROGRESSIVELY WORSENING SHORTNESS OF BREATH WITH PRODUCTIVE COUGH OVER THE PAST WEEK. UPON ARRIVAL TO TRIAGE PT O2 SAT IS 73% ON 4L [id number], 1 [id number] cardiomediastinal silhouette is stable. Similar post sternotomy changes. Similar bilateral airspace and pleural opacities. No pneumothorax. The bony thorax appears intact.IMPRESSIONSimilar bilateral pleural parenchymal opacities.Electronically signed by: SUSAN JOYCE (Nov 14, 2021 17:34:54)
[2021-11-14 17:45] LABS: BASOPHILS # (AUTO) 0.1 X10^3/uL (0.0-0.1); BASOPHILS % (AUTO) 0.9 % (0.2-1.0); EOSINOPHILS # (AUTO) 0.3 x10^3/uL (0.0-0.2); EOSINOPHILS % (AUTO) 3.7 % (0.9-2.9); HEMATOCRIT 36.6 % (42.0-54.0); HEMOGLOBIN 12.4 g/dL (13.5-18.0); LYMPHOCYTES # (AUTO) 1.3 X10^3/uL (1.3-2.9); LYMPHOCYTES % (AUTO) 15.4 % (21.0-51.0); MEAN CORPUSCULAR HEMOGLOBIN 28.7 pg (27.0-34.0); MEAN CORPUSCULAR HGB CONC 33.8 g/dL (33.0-35.0); MEAN CORPUSCULAR VOLUME 85.1 fL (80.0-100.0); MEAN PLATELET VOLUME 8.4 fL (7.4-11.0); MONOCYTES # (AUTO) 0.8 x10^3/uL (0.3-0.8); MONOCYTES % (AUTO) 9.7 % (0.0-13.0); NEUTROPHILS % (AUTO) 70.3 % (42.0-75.0); RED BLOOD COUNT 4.31 X10^6/uL (4.7-6.0); RED CELL DISTRIBUTION WIDTH 17.3 % (11.6-16.5); WHITE BLOOD COUNT 8.6 X10^3/uL (3.6-10.0)
[2021-11-14 17:58] LABS: ALANINE AMINOTRANSFERASE 17 Units/L (12-78); ALBUMIN 3.3 g/dL (3.4-5.0); ALKALINE PHOSPHATASE 78 Units/L (46-116); ASPARTATE AMINO TRANSFERASE 17 Units/L (15-37); BLOOD UREA NITROGEN 21 mg/dL (7-18); CARBON DIOXIDE 38.4 mmol/L (21-32); CHLORIDE 99 mmol/L (98-107); COR CA(FOR HYPOALB) 9.6 mg/dL (8.5-10.1); COR NA(FOR HYPERGLY) 143 mmol/L (136-145); CREATININE 1.24 mg/dL (0.70-1.30); SODIUM 141 mmol/L (136-145); TOTAL PROTEIN 7.9 g/dL (6.4-8.2); eGFR NON BLACK RACES 60 (>60)
[2021-11-14] MEDS ORDERED: SOLU-Medrol 125 MG VIAL ONE (22:18)
[2021-11-14] MEDS ORDERED: ZOSYN VIAL 3.375 GRAMS IV ONE (22:19)
[2021-11-14] MEDS ORDERED: NS 100 ML IV 100 ML ONE (22:19)
[2021-11-14] MEDS ORDERED: NS 1,000 ML IV 1,000 ML ONE (22:25)
[2021-11-14] MEDS: ZOSYN VIAL 3.375 GRAMS 3.375 G in NS 100 ML IV 100 ML IV SCH (22:35)
[2021-11-14] MEDS ORDERED: SOLU-Medrol 125 MG VIAL IVP SCH (23:00)
[2021-11-14] MEDS ORDERED: SALINE 3% 15 ML NEB TX ONE (23:12)
[2021-11-14] MEDS ORDERED: DUONEB 0.5 MG/3 MG (3 mL) NEB ONE (23:13)
[2021-11-14] MEDS ORDERED: SALINE 3% 15 ML NEB TX NEB ONE (23:13)
[2021-11-14] MEDS: DUONEB 0.5 MG/3 MG (3 mL) NEB SCH (23:15)
[2021-11-14 23:36] LABS: MAGNESIUM 2.2 mg/dL (1.7-2.9); PHOSPHORUS 3.8 mg/dL (2.6-4.7)
[2021-11-15] MEDS: DUONEB 0.5 MG/3 MG (3 mL) NEB SCH ×6 (00:21→21:13)
[2021-11-15 01:36] VITALS: BMI 30.9
[2021-11-15 05:29] LABS: BILIRUBIN,URINE NEGATIVE (NEGATIVE); BLOOD/HEMOGLOBIN,URINE 1+ (NEGATIVE); GLUCOSE, URINE NEGATIVE (NEGATIVE); KETONES,URINE NEGATIVE (NEGATIVE); LEUKOCYTE ESTERASE ,URINE NEGATIVE (NEGATIVE); NITRITES,URINE NEGATIVE (NEGATIVE); PH,URINE 6.5 (5.0 - 8.0); PROTEIN,URINE 3+ (NEGATIVE); UROBILINOGEN,URINE NORMAL (NORMAL)
[2021-11-15 05:30] LABS: APPEARANCE,URINE CLEAR (CLEAR); COLOR,URINE YELLOW (YELLOW)
[2021-11-15 05:37] LABS: BASOPHILS % (AUTO) 0.5 % (0.2-1.0); EOSINOPHILS % (AUTO) 0.2 % (0.9-2.9); HEMATOCRIT 33.8 % (42.0-54.0); HEMOGLOBIN 11.3 g/dL (13.5-18.0); LYMPHOCYTES # (AUTO) 0.7 X10^3/uL (1.3-2.9); LYMPHOCYTES % (AUTO) 9.4 % (21.0-51.0); MEAN CORPUSCULAR HEMOGLOBIN 28.1 pg (27.0-34.0); MEAN CORPUSCULAR HGB CONC 33.5 g/dL (33.0-35.0); MEAN CORPUSCULAR VOLUME 84.1 fL (80.0-100.0); MEAN PLATELET VOLUME 8.6 fL (7.4-11.0); MONOCYTES # (AUTO) 0.1 x10^3/uL (0.3-0.8); MONOCYTES % (AUTO) 0.9 % (0.0-13.0); NEUTROPHILS # (AUTO) 6.9 x10^3/uL (2.2-4.8); RED BLOOD COUNT 4.02 X10^6/uL (4.7-6.0); RED CELL DISTRIBUTION WIDTH 16.9 % (11.6-16.5); WHITE BLOOD COUNT 7.7 X10^3/uL (3.6-10.0)
[2021-11-15 05:38] LABS: BACTERIA,URINE NEGATIVE /HPF (NEGATIVE); RBC,URINE 0-2 /HPF (0-3); SQUAMOUS EPITHELIAL CELL,UR RARE /HPF (NEGATIVE)
[2021-11-15 05:40] LABS: LACTIC ACID 1.4 mmol/L (0.4-2.0)
[2021-11-15 05:48] LABS: ALANINE AMINOTRANSFERASE 16 Units/L (12-78); ALBUMIN 2.9 g/dL (3.4-5.0); ALKALINE PHOSPHATASE 69 Units/L (46-116); ASPARTATE AMINO TRANSFERASE 18 Units/L (15-37); BLOOD UREA NITROGEN 21 mg/dL (7-18); CALCIUM 8.9 mg/dL (8.5-10.1); CARBON DIOXIDE 36.4 mmol/L (21-32); CHLORIDE 99 mmol/L (98-107); COR CA(FOR HYPOALB) 9.8 mg/dL (8.5-10.1); COR NA(FOR HYPERGLY) 142 mmol/L (136-145); CREATINE KINASE 27 Units/L (39-308); CREATININE 1.26 mg/dL (0.70-1.30); SODIUM 140 mmol/L (136-145); eGFR NON BLACK RACES 59 (>60)
[2021-11-15] MEDS: ZOSYN VIAL 3.375 GRAMS 3.375 G in NS 100 ML IV 100 ML IV SCH ×3 (06:39→21:31)
--- NOTE | 2021-11-15 08:32 | DR.H&P ---
H&P - History & Physical for Day of: H&P Date: 11/14/21 - Chief Complaint Chief Complaint: SOB, COUGH - History of Present Illness History of Present Illness: IS A 81 YEAR OLD PATIENT OF . HE PRESENTED TO THE ER WITH COMPLAINTS OF WORSENING SHORTNESS OF BREATH, COUGH, AND CONGESTION FOR THE PAST TWO WEEKS. HE REPORTS HAVING A HISTORY OF CHF AND COPD. HE HAS USED HIS HOME OXYGEN, HOWEVER, SYMPTOMS HAVE PROGRESSED. HE DENIES FEVER, CHILLS, ABDOMINAL PAIN, CHEST PAIN, OR N/V/D. PMH INCLUDES CHF, COPD, CAD, DYSLIPIDEMIA, HTN, CABG. ON ARRIVAL TO THE HOSPITAL, VITALS WERE 98.0-98-22-73%-116/57. HIS OXYGEN WAS INCREASED TO 4 LPM. SATURATIONS INCREASED TO 95% ON 4 LITERS. LABS WERE OBTAINED. WBC 8.6, RBC 4.31, HGB 12.4, HCT 36.6, PLT COUNT 186, INR 1.17, PTT 36.7, SODIUM 141, POTASSIUM 4.2, CHLORIDE 99, CARBON DIOXIDE 38.4, BUN 21, CREATININE 1.24, GLUCOSE 198, LACTIC ACID 0.6, CALCIUM 9.0, PHOSPHORUS 3.8, MAGNESIUM 2.2, TOTAL BILI 0.40, AST 17, ALT 17, ALK PHOS 78, BNP 119, TOTAL PROTEIN 7.9, ALBUMIN 3.3, AMYLASE 21, LIPASE 66, CREATINE KINASE 34. ABG REVEALED: PH 7.410, PC02 64, P02 54, HC03 40.6, 02 SAT 88, BASE EXCESS 13.3, FI02 36.0. URINALYSIS OBTAINED AND WAS UNREMARKABLE. COVID-19 NEGATIVE. BLOOD AND SPUTUM CULTURES WERE SET UP. CHEST XRAY OBTAINED AND REVEALED: Similar bilateral pleural parenchymal opacities. EKG REVEALED: ACCELERATED JUNCTIONAL RHYTHM WITH HR 95. IN THE ER, HE WAS GIVEN BUMEX 1MG IV X 1, SOLU-MEDROL 125MG IV X 1, ZOSYN 3.375G IV X 1. HE WAS ADMITTED TO THE HOSPTIAL FOR FURTHER EVALUATION AND TREATMENT OF BILATERAL PNEUMONIA. HE WAS STARTED ON ZOSYN 3.375G IV TID, SOLU-MEDROL 80MG IV Q8H, DUONEBS Q4H, PULMICORT NEBS BID, AND HIS HOME MEDICATIONS WERE RESUMED. OTHERWISE, WE PLAN TO FOLLOW-UP WITH AM LABS AND CONTINUE TO MONITOR. TIME SPENT ON CLINICAL ASSESSMENT, REVIWING LABS AND IMAGING, DECISION MAKING, AND DOCUMENTATION GREATER THAN 75 MINUTES. - Past Medical History Past Medical History: CHF, COPD, Coronary Artery Disease, Dyslipidemia, Hypertension - Past Surgical History Surgical History: CABG/Valve Surgery, Ortho Surgery, Other - Family History Family Medical History: Coronary Artery Disease - Social History Does patient currently use any type of tobacco product: No Have you used tobacco products in the last 12 months: No Type of Tobacco Use: None Does any household member use tobacco: No Alcohol Use: None Drug Use: None - Medications Home Medications: No Known Drug Allergies Allergy (Verified 06/02/18 17:31) - Review of Systems Constitutional: Weakness Eyes: No Symptoms Reported ENT: No Symptoms Reported Respiratory: See HPI, Cough, Shortness of Breath, SOB with Excertion Cardiovascular: No Symptoms Reported Gastrointestinal: No Symptoms Reported Genitourinary: No Symptoms Reported Musculoskeletal: No Symptoms Reported Skin: No Symptoms Reported Neurological: Weakness - Physical Exam Vital Signs: Temperature 98.1 F Pulse Rate [Right Brachial] 109 Pulse Rate 95 Respiratory Rate 20 Blood Pressure [Right Arm] 123/73 Blood Pressure [Left Arm] 125/60 Blood Pressure 116/57 O2 Sat by Pulse Oximetry 93 Oriented: Normal Eyes: Normal Ear: Normal Nose: Normal Throat: Normal Respiratory: Rhonchi Throughout, Wheezes Throughout Cardiovascular: Normal : Normal Auscultation: Bowel Sounds: Normal Palpation: Normal Tenderness: Normal Skin: Normal Musculoskeletal: Normal Psychiatric: Normal Mood Description: Calm Affect: Normal Speech Pattern: Clear - Assessment/Plan (1) Bilateral pneumonia Qualifiers: Pneumonia type: due to unspecified organism Lung location: unspecified part of lung Qualified Code(s): J18.9 - Pneumonia, unspecified organism Status: Acute Plan: ADMIT, SUPPLEMENTAL OXYGEN, ZOSYN 3.375G IV TID, SOLU-MEDROL 80MG IV Q8H, DUONEBS Q4H, PULMICORT NEBS BID, AND HIS HOME MEDICATIONS WERE RESUMED. MONITOR LABS AND CHEST XRAY (2) Acute and chronic respiratory failure Qualifiers: Respiratory failure complication: hypoxia and hypercapnia Qualified Code(s): J96.21 - Acute and chronic respiratory failure with hypoxia; J96.22 - Acute and chronic respiratory failure with hypercapnia Status: Acute (3) Hypoxia Status: Acute - Allergies Allergies/Adverse Reactions: Allergies Allergy/AdvReac Type Severity Reaction Status Date / Time No Known Drug Allergies Allergy Verified 06/02/18 17:31
[2021-11-15] MEDS: PULMICORT NEB TX 0.5 MG NEB SCH ×2 (09:20→21:13)
[2021-11-15 11:58] LABS: LACTIC ACID 2.8 mmol/L (0.4-2.0)
[2021-11-15] MEDS ORDERED: SOLU-Medrol 125 MG VIAL IVP SCH (14:00)
[2021-11-15] MEDS: SOLU-Medrol 40 MG VIAL IVP SCH ×2 (14:00→21:31)
[2021-11-15] MEDS: XANAX PO PRN ×2 (14:36→20:56)
[2021-11-15] MEDS: ASPIRIN PO SCH (20:30)
[2021-11-15] MEDS: ZOCOR TAB 10 MG PO SCH (20:54)
[2021-11-15] MEDS: LOPRESSOR TAB 50 MG PO SCH (20:55)
[2021-11-15] MEDS: FLOMAX PO SCH (20:55)
[2021-11-15] MEDS: NORVASC TAB 10 MG PO SCH (20:56)
[2021-11-16] MEDS: DUONEB 0.5 MG/3 MG (3 mL) NEB SCH ×7 (00:30→21:00)
[2021-11-16 05:16] LABS: BASOPHILS % (AUTO) 0.1 % (0.2-1.0); HEMATOCRIT 34.8 % (42.0-54.0); HEMOGLOBIN 11.7 g/dL (13.5-18.0); LYMPHOCYTES # (AUTO) 0.9 X10^3/uL (1.3-2.9); LYMPHOCYTES % (AUTO) 6.5 % (21.0-51.0); MEAN CORPUSCULAR HEMOGLOBIN 28.1 pg (27.0-34.0); MEAN CORPUSCULAR HGB CONC 33.6 g/dL (33.0-35.0); MEAN CORPUSCULAR VOLUME 83.7 fL (80.0-100.0); MEAN PLATELET VOLUME 8.4 fL (7.4-11.0); MONOCYTES # (AUTO) 0.3 x10^3/uL (0.3-0.8); MONOCYTES % (AUTO) 2.5 % (0.0-13.0); NEUTROPHILS # (AUTO) 12.2 x10^3/uL (2.2-4.8); NEUTROPHILS % (AUTO) 90.9 % (42.0-75.0); RED BLOOD COUNT 4.16 X10^6/uL (4.7-6.0); RED CELL DISTRIBUTION WIDTH 16.9 % (11.6-16.5); WHITE BLOOD COUNT 13.4 X10^3/uL (3.6-10.0)
[2021-11-16] MEDS: SOLU-Medrol 40 MG VIAL IVP SCH ×3 (05:18→21:02)
[2021-11-16] MEDS: ZOSYN VIAL 3.375 GRAMS 3.375 G in NS 100 ML IV 100 ML IV SCH ×3 (05:18→21:03)
[2021-11-16 05:19] LABS: ALANINE AMINOTRANSFERASE 17 Units/L (12-78); ALBUMIN 3.1 g/dL (3.4-5.0); ALKALINE PHOSPHATASE 66 Units/L (46-116); ASPARTATE AMINO TRANSFERASE 16 Units/L (15-37); BLOOD UREA NITROGEN 23 mg/dL (7-18); CALCIUM 9.2 mg/dL (8.5-10.1); CARBON DIOXIDE 34.8 mmol/L (21-32); CHLORIDE 97 mmol/L (98-107); COR CA(FOR HYPOALB) 9.9 mg/dL (8.5-10.1); COR NA(FOR HYPERGLY) 140 mmol/L (136-145); CREATININE 1.24 mg/dL (0.70-1.30); SODIUM 138 mmol/L (136-145); TOTAL PROTEIN 7.3 g/dL (6.4-8.2); eGFR NON BLACK RACES 60 (>60)
[2021-11-16 05:45] LABS: ANISOCYTOSIS SLIGHT; BAND NEUTROPHILS % 1 % (0-10); GIANT PLATELET FEW; PLATELET MORPHOLOGY COMMENT ABNORMAL (NORMAL); SCHISTOCYTES PRESENT
--- NOTE | 2021-11-16 06:32 | RAD ---
HISTORYSOB hx: copd, htn sx: cabg/valve, ortho.br.br.br.br.br [id number]/22/2022 aFINDINGSThe trachea is midline. The cardiac silhouette is mildly enlarged. Changes of prior CABG surgery are present.. Bilateral airspace disease with pleural parenchymal opacities unchanged. No pneumothorax. . The bony thorax is unremarkable.IMPRESSIONStable portable chest is.Electronically signed by: Jono Ibanez (Nov 16, 2021 06:30:48)
[2021-11-16] MEDS: XANAX PO PRN ×3 (08:13→20:34)
[2021-11-16] MEDS: FLOMAX PO SCH (08:14)
[2021-11-16] MEDS: ASPIRIN PO SCH (08:14)
[2021-11-16] MEDS: LOPRESSOR TAB 50 MG PO SCH ×2 (08:15→20:33)
[2021-11-16] MEDS: NORVASC TAB 10 MG PO SCH (08:15)
[2021-11-16] MEDS: K-DUR TAB 20 MEQ PO SCH (08:18)
[2021-11-16] MEDS: LASIX IVP SCH (08:53)
[2021-11-16] MEDS: PERCOCET TAB 5/325 MG PO PRN (08:58)
[2021-11-16] MEDS: PULMICORT NEB TX 0.5 MG NEB SCH ×2 (09:40→21:00)
--- NOTE | 2021-11-16 14:35 | PCM.PROG ---
Progress Note - Progress Note for Day of Date of Exam: 11/16/21 - Subjective Subjective: IS CURRENTLY INPATIENT STATUS FOR TREATMENT OF BILATERAL PNEUMONIA AND HYPOXIA. TODAY, HE IS ALERT AND ORIENTED, LYING IN BED ON MORNING ROUNDS. HE CONTINUES WITH COMPLAINTS OF SHORTNESS OF BREATH AND PRODUCTIVE COUGH. ON EXAMINATION, HEART IS REGULAR IN RATE AND RHYTHM. BILATERAL LUNGS ARE NOTED WITH RHONCHI AND WHEEZING THROUGHOUT. ABDOMEN IS ROUND, SOFT, AND NON- TENDER WITH NORMAL BOWEL SOUNDS NOTED IN ALL QUADRANTS. BILATERAL LOWER EXTREMITIES ARE NOTED WITH TRACE EDEMA. HIS VITALS THIS MORNING ARE: 97.4-97-22-91%-123/60. LABS WERE OBTAINED. WBC 13.4, RBC 4.16, HGB 11.7, HCT 34.8, PLT COUNT 200, SODIUM 138, POTASSIUM 3.9, CHLORIDE 97, CARBON DIOXIDE 34.8, BUN 23, CREATININE 1.24, GLUCOSE 182, CALCIUM 9.2, TOTAL PROTEIN 7.3, ALBUMIN 3.1. BLOOD AND SPUTUM CULTURES ARE PENDING. CHEST XRAY WAS REPEATED THIS MORNING AND REVEALED: The trachea is midline. The cardiac silhouette is mildly enlarged. Changes of prior CABG surgery are present. Bilateral airspace disease with pleural parenchymal opacities unchanged. No pneumothorax. The bony thorax is unremarkable. HE IS CURRENTLY RECEIVING ZOSYN 3.375G IV TID, SOLU-MEDROL 80MG IV Q8H, DUONEBS Q4H, PULMICORT NEBS BID, AND HIS HOME MEDICATIONS WERE RESUMED WITH THE EXCEPTION OF HIS LASIX. WE WILL CONTINUE WITH CURRENT PLAN OF CARE TODAY AND START LASIX 20MG PO DAILY. OTHERWISE, WE WILL FOLLOW-UP WITH AM LABS AND CONTINUE TO MONITOR. TIME SPENT ON CLINICAL ASSESSMENT, REVIEWING LABS AND IMAGING, DECISION MAKING, AND DOCUMENTATION GREATER THAN 45 MINUTES. - Past Medical Family Social History Past Med/Fam/Surg Hx: No changes since H&P Allergies: Allergies No Known Drug Allergies Allergy (Verified 06/02/18 17:31) - Review of Systems ROS: No change since H&P - Vital Signs and I&O's Vital Signs: Temperature 98.5 F Pulse Rate [Right Brachial] 88 Pulse Rate 81 Respiratory Rate 24 Blood Pressure [Right Arm] 131/55 Blood Pressure [Left Arm] 126/64 Blood Pressure 116/57 O2 Sat by Pulse Oximetry 97 Intake and Output: Intake & Output 0711/15/21 11/16/21 11/17/21 11:59 11:59 11:59 11:59 Intake Total 125 / 125 2461 / 2461 Balance 125 / 125 2460 / 2460 - Physical Exam Oriented: Normal Eyes: Normal Ear: Normal Nose: Normal Throat: Normal Respiratory: Wheezes, Rhonchi Cardiovascular: Normal : Normal Auscultation: Bowel Sounds: Normal Palpation: Normal Tenderness: Normal Skin: Normal Musculoskeletal: Normal Psychiatric: Normal Mood Description: Calm Affect: Normal Speech Pattern: Clear, Appropriate - Laboratory and Diagnostics Result Diagrams: 11/16/21 04:25 11/16/21 04:25 Labs: 11/14/21 22:27 Blood Blood Culture - Preliminary 11/14/21 22:21 Blood Blood Culture - Preliminary 11/14/21 23:45 Sputum - Expectorated Sputum Sputum Culture - Preliminary 11/14/21 23:45 Sputum - Expectorated Sputum - Final Laboratory WBC 13.4 X10^3/uL (3.6-10.0) H 11/16/21 04:25 RBC 4.16 X10^6/uL (4.7-6.0) L 11/16/21 04:25 Hgb 11.7 g/dL (13.5-18.0) L 11/16/21 04:25 Hct 34.8 % (42.0-54.0) L 11/16/21 04:25 MCV 83.7 fL (80.0-100.0) 11/16/21 04:25 MCH 28.1 pg (27.0-34.0) 11/16/21 04:25 MCHC 33.6 g/dL (33.0-35.0) 11/16/21 04:25 RDW 16.9 % (11.6-16.5) H 11/16/21 04:25 Plt Count 200 X10^3/uL (150.0-450.0) 11/16/21 04:25 Plt Count Comment Adequate (ADEQUATE) 11/16/21 04:25 MPV 8.4 fL (7.4-11.0) 11/16/21 04:25 Neut % (Auto) 90.9 % (42.0-75.0) H 11/16/21 04:25 Lymph % (Auto) 6.5 % (21.0-51.0) L 11/16/21 04:25 [place] % (Auto) 2.5 % (0.0-13.0) 11/16/21 04:25 Eos % (Auto) 0.0 % (0.9-2.9) L 11/16/21 04:25 Baso % (Auto) 0.1 % (0.2-1.0) L 11/16/21 04:25 Neut # (Auto) 12.2 x10^3/uL (2.2-4.8) H 11/16/21 04:25 Lymph # (Auto) 0.9 X10^3/uL (1.3-2.9) L 11/16/21 04:25 [place] # (Auto) 0.3 x10^3/uL (0.3-0.8) 11/16/21 04:25 Eos # (Auto) 0.0 x10^3/uL (0.0-0.2) 11/16/21 04:25 Baso # (Auto) 0.0 X10^3/uL (0.0-0.1) 11/16/21 04:25 Absolute Nucleated RBC 0.1 /100WBC 11/16/21 04:25 Total Counted 100 11/16/21 04:25 Neutrophils % (Manual) 91 % (39-76) H 11/16/21 04:25 Band Neutrophils % 1 % (0-10) 11/16/21 04:25 Lymphocytes % (Manual) 7 % (13-43) L 11/16/21 04:25 Monocytes % (Manual) 1 % (4-9) L 11/16/21 04:25 Giant Platelets Few 11/16/21 04:25 Plt Morphology Comment Abnormal (NORMAL) 11/16/21 04:25 RBC Morphology Abnormal (NORMAL) 11/16/21 04:25 Anisocytosis Slight A 11/16/21 04:25 Schistocytes Present 11/16/21 04:25 PT 14.5 SECONDS (11.8-14.3) 11/14/21 23:15 INR Target Range - 11/14/21 23:15 INR 1.17 (0.8-1.3) 11/14/21 23:15 APTT 36.7 SECONDS (22.9-36.5) H 11/14/21 23:15 PTT Comment - 11/14/21 23:15 Sample Site Right radial 11/14/21 16:52 ABG pH 7.410 (7.35-7.45) 11/14/21 16:52 ABG pCO2 64.0 mmHg (35.0-45.0) H* 11/14/21 16:52 ABG pO2 54.0 mmHg (80.0-100.0) L 11/14/21 16:52 ABG HCO3 40.6 mmol/L (22-26) H* 11/14/21 16:52 ABG O2 Saturation 88.0 % (90-100) L 11/14/21 16:52 ABG Base Excess 13.3 mmol/L (-2.0-2.0) H 11/14/21 16:52 Anselmo Test Pos 11/14/21 16:52 A-a Gradient 123.0 mmHg 11/14/21 16:52 FiO2 36.0 11/14/21 16:52 Blood Gas Comments Kelly well 11/14/21 16:52 Sodium 138 mmol/L (136-145) 11/16/21 04:25 Corrected Sodium 140 mmol/L (136-145) 11/16/21 04:25 Potassium 3.9 mmol/L (3.5-5.1) 11/16/21 04:25 Chloride 97 mmol/L (98-107) L 11/16/21 04:25 Carbon Dioxide 34.8 mmol/L (21-32) H 11/16/21 04:25 BUN 23 mg/dL (7-18) H 11/16/21 04:25 Creatinine 1.24 mg/dL (0.70-1.30) 11/16/21 04:25 Est GFR (MDRD) Af Amer > 60 (>60) 11/16/21 04:25 Est GFR (MDRD) Non-Af 60 (>60) 11/16/21 04:25 Glucose 182 mg/dL (65-99) H 11/16/21 04:25 POC Glucose (mg/dL) 201 mg/dL (65-99) H 11/16/21 11:03 Lactic Acid 1.6 mmol/L (0.4-2.0) 11/15/21 17:25 Calcium 9.2 mg/dL (8.5-10.1) 11/16/21 04:25 Corrected Calcium 9.9 mg/dL (8.5-10.1) 11/16/21 04:25 Phosphorus 3.8 mg/dL (2.6-4.7) 11/14/21 23:15 Magnesium 2.2 mg/dL (1.7-2.9) 11/14/21 23:15 Total Bilirubin 0.40 mg/dL (0.2-1.0) 11/16/21 04:25 AST 16 Units/L (15-37) 11/16/21 04:25 ALT 17 Units/L (12-78) 11/16/21 04:25 Alkaline Phosphatase 66 Units/L (46-116) 11/16/21 04:25 Creatine Kinase 33 Units/L (39-308) L 11/15/21 11:35 Troponin I High Sens 19.0 ng/L (4.0-60.0) 11/15/21 11:35 B-Natriuretic Peptide 119 pg/mL (0-79) H 11/14/21 17:35 Total Protein 7.3 g/dL (6.4-8.2) 11/16/21 04:25 Albumin 3.1 g/dL (3.4-5.0) L 11/16/21 04:25 Globulin 4.2 g/dL (2.5-4.5) 11/16/21 04:25 Albumin/Globulin Ratio 0.7 Ratio (1.1-2.1) L 11/16/21 04:25 Amylase 21 Units/L (25-115) L 11/14/21 23:15 Lipase 66 Units/L (73-393) L 11/14/21 23:15 Specimen Type Clean catch urine 11/15/21 04:44 Urine Color Yellow (YELLOW) 11/15/21 04:44 Urine Appearance Clear (CLEAR) 11/15/21 04:44 Urine pH 6.5 (5.0 - 8.0) 11/15/21 04:44 Ur Specific [place] 1.010 (1.000-1.030) 11/15/21 04:44 Urine Protein 3+ (NEGATIVE) 11/15/21 04:44 Urine Glucose (UA) Negative (NEGATIVE) 11/15/21 04:44 Urine Ketones Negative (NEGATIVE) 11/15/21 04:44 Urine Blood 1+ (NEGATIVE) 11/15/21 04:44 Urine Nitrite Negative (NEGATIVE) 11/15/21 04:44 Urine Bilirubin Negative (NEGATIVE) 11/15/21 04:44 Urine Urobilinogen Normal (NORMAL) 11/15/21 04:44 Ur Leukocyte Esterase Negative (NEGATIVE) 11/15/21 04:44 Urine RBC 0-2 /HPF (0-3) 11/15/21 04:44 Urine WBC 0-2 /HPF (0-5) 11/15/21 04:44 Ur Squamous Epith Cells Rare /HPF (NEGATIVE) 11/15/21 04:44 Urine Bacteria Negative /HPF (NEGATIVE) 11/15/21 04:44 Urine Mucus Rare /HPF (NEGATIVE) 11/15/21 04:44 Ur Culture Indicated? No/not indicated 11/15/21 04:44 SARS-CoV-2 (PCR) Negative (NEGATIVE) 11/14/21 21:02 - Plan (1) Bilateral pneumonia Status: Acute Qualifiers: Pneumonia type: due to unspecified organism Lung location: unspecified part of lung Qualified Code(s): J18.9 - Pneumonia, unspecified organism Plan: SUPPLEMENTAL OXYGEN, ZOSYN 3.375G IV TID, SOLU-MEDROL 80MG IV Q8H, DUONEBS Q4H, PULMICORT NEBS BID, LASIX 20MG PO DAILY, AND HIS HOME MEDICATIONS WERE RESUMED. MONITOR LABS AND CHEST XRAY (2) Acute and chronic respiratory failure Status: Acute Qualifiers: Respiratory failure complication: hypoxia and hypercapnia Qualified Code(s): J96.21 - Acute and chronic respiratory failure with hypoxia; J96.22 - Acute and chronic respiratory failure with hypercapnia (3) Hypoxia Status: Acute
[2021-11-16] MEDS: ZOCOR TAB 10 MG PO SCH (21:02)
[2021-11-17] MEDS: DUONEB 0.5 MG/3 MG (3 mL) NEB SCH ×6 (00:50→21:12)
[2021-11-17] MEDS: SOLU-Medrol 40 MG VIAL IVP SCH ×3 (05:00→22:00)
[2021-11-17] MEDS: ZOSYN VIAL 3.375 GRAMS 3.375 G in NS 100 ML IV 100 ML IV SCH ×3 (05:00→22:00)
[2021-11-17 05:14] LABS: BASOPHILS % (AUTO) 0.2 % (0.2-1.0); HEMATOCRIT 35.1 % (42.0-54.0); HEMOGLOBIN 11.6 g/dL (13.5-18.0); LYMPHOCYTES # (AUTO) 0.7 X10^3/uL (1.3-2.9); LYMPHOCYTES % (AUTO) 4.9 % (21.0-51.0); MEAN CORPUSCULAR HEMOGLOBIN 27.7 pg (27.0-34.0); MEAN CORPUSCULAR HGB CONC 33.1 g/dL (33.0-35.0); MEAN CORPUSCULAR VOLUME 83.7 fL (80.0-100.0); MEAN PLATELET VOLUME 8.5 fL (7.4-11.0); MONOCYTES # (AUTO) 0.4 x10^3/uL (0.3-0.8); MONOCYTES % (AUTO) 3.1 % (0.0-13.0); NEUTROPHILS # (AUTO) 12.7 x10^3/uL (2.2-4.8); NEUTROPHILS % (AUTO) 91.8 % (42.0-75.0); RED BLOOD COUNT 4.19 X10^6/uL (4.7-6.0); RED CELL DISTRIBUTION WIDTH 16.8 % (11.6-16.5); WHITE BLOOD COUNT 13.8 X10^3/uL (3.6-10.0)
[2021-11-17 05:25] LABS: ALANINE AMINOTRANSFERASE 20 Units/L (12-78); ALBUMIN 3.1 g/dL (3.4-5.0); ALKALINE PHOSPHATASE 65 Units/L (46-116); ASPARTATE AMINO TRANSFERASE 17 Units/L (15-37); BLOOD UREA NITROGEN 27 mg/dL (7-18); CARBON DIOXIDE 32.4 mmol/L (21-32); CHLORIDE 97 mmol/L (98-107); COR CA(FOR HYPOALB) 9.7 mg/dL (8.5-10.1); COR NA(FOR HYPERGLY) 142 mmol/L (136-145); CREATININE 1.22 mg/dL (0.70-1.30); SODIUM 138 mmol/L (136-145); TOTAL PROTEIN 7.1 g/dL (6.4-8.2); eGFR NON BLACK RACES > 60 (>60)
[2021-11-17 05:48] LABS: BAND NEUTROPHILS % 1 % (0-10); PLATELET MORPHOLOGY COMMENT NORMAL (NORMAL)
[2021-11-17 05:49] LABS: ANISOCYTOSIS SLIGHT
--- NOTE | 2021-11-17 06:16 | RAD ---
HISTORYShortness of breath, follow-up pneumoniaSTUDYChest AP [id number] ent is status post median sternotomy and CABG. The heart remains enlarged. No congestive heart failure is noted. The lungs are hyperinflated. Bilateral interstitial and some peripheral ground-glass infiltrates are identified demonstrating some improvement when compared with the prior examination. No pleural effusions are identified. Bony thorax is unremarkable.IMPRESSIONImproving bilateral infiltratesCardiomegaly without congestive heart failureHyperinflationElectronically signed by: SUSAN JOYCE (Nov 17, 2021 06:15:00)
[2021-11-17] MEDS: PULMICORT NEB TX 0.5 MG NEB SCH ×2 (08:30→21:12)
[2021-11-17] MEDS: ASPIRIN PO SCH (08:34)
[2021-11-17] MEDS: LASIX IVP SCH ×2 (08:35→16:04)
[2021-11-17] MEDS: LOPRESSOR TAB 50 MG PO SCH ×2 (08:35→20:46)
[2021-11-17] MEDS: K-DUR TAB 20 MEQ PO SCH (08:35)
[2021-11-17] MEDS: FLOMAX PO SCH (08:35)
[2021-11-17] MEDS: NORVASC TAB 10 MG PO SCH (08:36)
[2021-11-17] MEDS: XANAX PO PRN ×2 (08:36→14:37)
[2021-11-17] MEDS: LOVENOX INJ 40 MG SYR SC SCH (10:40)
[2021-11-17] MEDS: DIFLUCAN 200 MG IV PREMIX* 200 MG/100 ML BAG IV SCH (10:41)
[2021-11-17] MEDS: PERCOCET TAB 5/325 MG PO PRN (16:04)
[2021-11-17] MEDS: ZOCOR TAB 10 MG PO SCH (20:47)
[2021-11-18] MEDS: DUONEB 0.5 MG/3 MG (3 mL) NEB SCH ×3 (00:27→09:08)
[2021-11-18] MEDS: SOLU-Medrol 40 MG VIAL IVP SCH (05:11)
[2021-11-18] MEDS: ZOSYN VIAL 3.375 GRAMS 3.375 G in NS 100 ML IV 100 ML IV SCH (05:11)
--- NOTE | 2021-11-18 06:02 | RAD ---
HISTORYFollow-up pneumonia, shortness of breathSTUDYChest AP [id number] ent is status post median sternotomy and CABG. The heart remains enlarged. No congestive heart failure is noted. The aorta is calcified. Lungs are hyperinflated. Diffuse bilateral mild interstitial lung changes are present and stable as are some peripheral ground-glass infiltrates which are unchanged. Perihilar subsegmental atelectasis on the right. No pleural effusions are identified. No pneumothorax identified. Bony thorax is unremarkable.IMPRESSIONNo change cardiomegaly without congestive heart failureNo change hyperinflationNo change bilateral interstitial lung changes and some subtle peripheral ground-glass infiltrates when compared to the prior examination.Electronically signed by: SUSAN JOYCE (Nov 18, 2021 06:00:22)
[2021-11-18 06:04] LABS: BASOPHILS % (AUTO) 0.1 % (0.2-1.0); HEMATOCRIT 36.5 % (42.0-54.0); HEMOGLOBIN 12.1 g/dL (13.5-18.0); LYMPHOCYTES % (AUTO) 6.9 % (21.0-51.0); MEAN CORPUSCULAR HEMOGLOBIN 27.7 pg (27.0-34.0); MEAN PLATELET VOLUME 8.6 fL (7.4-11.0); MONOCYTES # (AUTO) 0.6 x10^3/uL (0.3-0.8); MONOCYTES % (AUTO) 4.3 % (0.0-13.0); NEUTROPHILS # (AUTO) 13.4 x10^3/uL (2.2-4.8); NEUTROPHILS % (AUTO) 88.7 % (42.0-75.0); RED BLOOD COUNT 4.35 X10^6/uL (4.7-6.0); RED CELL DISTRIBUTION WIDTH 17.2 % (11.6-16.5); WHITE BLOOD COUNT 15.1 X10^3/uL (3.6-10.0)
[2021-11-18 06:12] LABS: ALANINE AMINOTRANSFERASE 147 Units/L (12-78); ALBUMIN 3.3 g/dL (3.4-5.0); ALKALINE PHOSPHATASE 78 Units/L (46-116); ASPARTATE AMINO TRANSFERASE 76 Units/L (15-37); BLOOD UREA NITROGEN 25 mg/dL (7-18); CALCIUM 8.8 mg/dL (8.5-10.1); CHLORIDE 96 mmol/L (98-107); COR CA(FOR HYPOALB) 9.4 mg/dL (8.5-10.1); COR NA(FOR HYPERGLY) 139 mmol/L (136-145); SODIUM 136 mmol/L (136-145); TOTAL PROTEIN 7.4 g/dL (6.4-8.2); eGFR NON BLACK RACES > 60 (>60)
[2021-11-18] MEDS: NORVASC TAB 10 MG PO SCH (08:11)
[2021-11-18] MEDS: ASPIRIN PO SCH (08:11)
[2021-11-18] MEDS: K-DUR TAB 20 MEQ PO SCH (08:12)
[2021-11-18] MEDS: LOPRESSOR TAB 50 MG PO SCH (08:12)
[2021-11-18] MEDS: FLOMAX PO SCH (08:12)
[2021-11-18] MEDS: LOVENOX INJ 40 MG SYR SC SCH (08:12)
[2021-11-18] MEDS: DIFLUCAN 200 MG IV PREMIX* 200 MG/100 ML BAG IV SCH (08:16)
[2021-11-18] MEDS: LASIX IVP SCH (08:16)
[2021-11-18] MEDS: PULMICORT NEB TX 0.5 MG NEB SCH (09:09)
[2021-11-18 09:34] VITALS: BP 120/60
--- NOTE | 2021-11-18 13:00 | PCM.PROG ---
Progress Note - Progress Note for Day of Date of Exam: 11/17/21 - Subjective Subjective: IS CURRENTLY INPATIENT STATUS FOR TREATMENT OF BILATERAL PNEUMONIA AND HYPOXIA. TODAY, HE IS ALERT AND ORIENTED, LYING IN BED ON MORNING ROUNDS. HE CONTINUES WITH COMPLAINTS OF SHORTNESS OF BREATH AND PRODUCTIVE COUGH, BUT REPORTS SLIGHT IMPROVMENT SINCE YESTERDAY. ON EXAMINATION, HEART IS REGULAR IN RATE AND RHYTHM. BILATERAL LUNGS ARE NOTED WITH RHONCHI THROUGHOUT. ABDOMEN IS ROUND, SOFT, AND NON-TENDER WITH NORMAL BOWEL SOUNDS NOTED IN ALL QUADRANTS. BILATERAL LOWER EXTREMITIES ARE NOTED WITH TRACE EDEMA. HIS VITALS THIS MORNING ARE: 98.1-100-20-94%-120/60. HE IS CURRENTLY ON OXYGEN VIA NASAL CANNULA AT 2-3 LPM. LABS WERE OBTAINED. WBC 13.8, RBC 4.19, HGB 11.6, HCT 35.1, SODIUM 138, POTASSIUM 3.8, CHLORIDE 97, BUN 27, CREATININE 1.22, GLUCOSE 264, CALCIUM 9.0, AST 17, ALT 20, ALK PHOS 65, TOTAL PROTEIN 7.1, ALBUMIN 3.1. SPUTUM CULTURE IS POSITIVE FOR KLEBSIELLA PNEUMONIAE AND YEAST. CHEST XRAY WAS REPEATED THIS MORNING AND REVEALED: Improving bilateral infiltrates. Cardiomegaly without congestive heart failure. Hyperinflation. HE IS CURRENTLY RECEIVING ZOSYN 3.375G IV TID, SOLU-MEDROL 80MG IV Q8H, DUONEBS Q4H, PULMICORT NEBS BID, LASIX 20MG IV DAILY, AND HIS HOME MEDICATIONS WERE RESUMED. TODAY, WE WILL INCREASE LASIX TO 20MG PO BID. WE WILL DECREASE SOLU-MEDROL TO 20MG IV Q8H. WE WILL ALSO ADD DIFLUCAN 200MG IV DAILY. OTHERWISE, WE WILL FOLLOW-UP WITH AM LABS AND CONTINUE TO MONITOR. TIME SPENT ON CLINICAL ASSESSMENT, REVIEWING LABS AND IMAGING, DECISION MAKING, AND DOCUMENTATION GREATER THAN 45 MINUTES. - Past Medical Family Social History Past Med/Fam/Surg Hx: No changes since H&P Allergies: Allergies No Known Drug Allergies Allergy (Verified 06/02/18 17:31) - Review of Systems ROS: No change since H&P - Vital Signs and I&O's Vital Signs: Temperature 98.1 F Pulse Rate [Left Brachial] 114 Pulse Rate [Right Brachial] 102 Pulse Rate 108 Respiratory Rate 20 Blood Pressure [Right Arm] 120/60 Blood Pressure [Left Arm] 138/70 Blood Pressure 116/57 O2 Sat by Pulse Oximetry 97 Intake and Output: Intake & Output 11/16/21 11/17/21 11/18/21 11/19/21 11:59 11:59 11:59 11:59 Intake Total 2461 / 2461 2223 / 2223 1595 / 1595 Balance 2461 / 2461 2223 / 2223 1595 / 1595 - Physical Exam Oriented: Normal Eyes: Normal Ear: Normal Nose: Normal Throat: Normal Respiratory: Wheezes, Rhonchi Cardiovascular: Normal : Normal Auscultation: Bowel Sounds: Normal Palpation: Normal Tenderness: Normal Skin: Normal Musculoskeletal: Normal Psychiatric: Normal Mood Description: Calm Affect: Normal Speech Pattern: Clear, Appropriate - Laboratory and Diagnostics Result Diagrams: 11/18/21 05:26 11/18/21 05:26 Labs: 11/14/21 23:45 Sputum - Expectorated Sputum Sputum Culture - Preliminary Klebsiella Pneumoniae 11/14/21 23:45 Sputum - Expectorated Sputum - Final 11/14/21 22:27 Blood Blood Culture - Preliminary 11/14/21 22:21 Blood Blood Culture - Preliminary Laboratory WBC 15.1 X10^3/uL (3.6-10.0) H 11/18/21 05:26 RBC 4.35 X10^6/uL (4.7-6.0) L 11/18/21 05:26 Hgb 12.1 g/dL (13.5-18.0) L 11/18/21 05:26 Hct 36.5 % (42.0-54.0) L 11/18/21 05:26 MCV 84.0 fL (80.0-100.0) 11/18/21 05:26 MCH 27.7 pg (27.0-34.0) 11/18/21 05:26 MCHC 33.0 g/dL (33.0-35.0) 11/18/21 05:26 RDW 17.2 % (11.6-16.5) H 11/18/21 05:26 Plt Count 212 X10^3/uL (150.0-450.0) 11/18/21 05:26 Plt Count Comment Adequate (ADEQUATE) 11/17/21 04:20 MPV 8.6 fL (7.4-11.0) 11/18/21 05:26 Neut % (Auto) 88.7 % (42.0-75.0) H 11/18/21 05:26 Lymph % (Auto) 6.9 % (21.0-51.0) L 11/18/21 05:26 [place] % (Auto) 4.3 % (0.0-13.0) 11/18/21 05:26 Eos % (Auto) 0.0 % (0.9-2.9) L 11/18/21 05:26 Baso % (Auto) 0.1 % (0.2-1.0) L 11/18/21 05:26 Neut # (Auto) 13.4 x10^3/uL (2.2-4.8) H 11/18/21 05:26 Lymph # (Auto) 1.0 X10^3/uL (1.3-2.9) L 11/18/21 05:26 [place] # (Auto) 0.6 x10^3/uL (0.3-0.8) 11/18/21 05:26 Eos # (Auto) 0.0 x10^3/uL (0.0-0.2) 11/18/21 05:26 Baso # (Auto) 0.0 X10^3/uL (0.0-0.1) 11/18/21 05:26 Absolute Nucleated RBC 0.1 /100WBC 11/18/21 05:26 Total Counted 100 11/17/21 04:20 Neutrophils % (Manual) 90 % (39-76) H 11/17/21 04:20 Band Neutrophils % 1 % (0-10) 11/17/21 04:20 Lymphocytes % (Manual) 7 % (13-43) L 11/17/21 04:20 Monocytes % (Manual) 2 % (4-9) L 11/17/21 04:20 Giant Platelets Few 11/16/21 04:25 Plt Morphology Comment Normal (NORMAL) 11/17/21 04:20 RBC Morphology Abnormal (NORMAL) 11/17/21 04:20 Anisocytosis Slight A 11/17/21 04:20 Schistocytes Present 11/16/21 04:25 PT 14.5 SECONDS (11.8-14.3) 11/14/21 23:15 INR Target Range - 11/14/21 23:15 INR 1.17 (0.8-1.3) 11/14/21 23:15 APTT 36.7 SECONDS (22.9-36.5) H 11/14/21 23:15 PTT Comment - 11/14/21 23:15 Sample Site Right radial 11/14/21 16:52 ABG pH 7.410 (7.35-7.45) 11/14/21 16:52 ABG pCO2 64.0 mmHg (35.0-45.0) H* 11/14/21 16:52 ABG pO2 54.0 mmHg (80.0-100.0) L 11/14/21 16:52 ABG HCO3 40.6 mmol/L (22-26) H* 11/14/21 16:52 ABG O2 Saturation 88.0 % (90-100) L 11/14/21 16:52 ABG Base Excess 13.3 mmol/L (-2.0-2.0) H 11/14/21 16:52 Anselmo Test Pos 11/14/21 16:52 A-a Gradient 123.0 mmHg 11/14/21 16:52 FiO2 36.0 11/14/21 16:52 Blood Gas Comments Kelly well 11/14/21 16:52 Sodium 136 mmol/L (136-145) 11/18/21 05:26 Corrected Sodium 139 mmol/L (136-145) 11/18/21 05:26 Potassium 3.7 mmol/L (3.5-5.1) 11/18/21 05:26 Chloride 96 mmol/L (98-107) L 11/18/21 05:26 Carbon Dioxide 34.0 mmol/L (21-32) H 11/18/21 05:26 BUN 25 mg/dL (7-18) H 11/18/21 05:26 Creatinine 1.20 mg/dL (0.70-1.30) 11/18/21 05:26 Est GFR (MDRD) Af Amer > 60 (>60) 11/18/21 05:26 Est GFR (MDRD) Non-Af > 60 (>60) 11/18/21 05:26 Glucose 218 mg/dL (65-99) H 11/18/21 05:26 POC Glucose (mg/dL) 248 mg/dL (65-99) H 11/18/21 05:09 Lactic Acid 1.6 mmol/L (0.4-2.0) 11/15/21 17:25 Calcium 8.8 mg/dL (8.5-10.1) 11/18/21 05:26 Corrected Calcium 9.4 mg/dL (8.5-10.1) 11/18/21 05:26 Phosphorus 3.8 mg/dL (2.6-4.7) 11/14/21 23:15 Magnesium 2.2 mg/dL (1.7-2.9) 11/14/21 23:15 Total Bilirubin 0.50 mg/dL (0.2-1.0) 11/18/21 05:26 AST 76 Units/L (15-37) H 11/18/21 05:26 ALT 147 Units/L (12-78) H 11/18/21 05:26 Alkaline Phosphatase 78 Units/L (46-116) 11/18/21 05:26 Creatine Kinase 33 Units/L (39-308) L 11/15/21 11:35 Troponin I High Sens 19.0 ng/L (4.0-60.0) 11/15/21 11:35 B-Natriuretic Peptide 119 pg/mL (0-79) H 11/14/21 17:35 Total Protein 7.4 g/dL (6.4-8.2) 11/18/21 05:26 Albumin 3.3 g/dL (3.4-5.0) L 11/18/21 05:26 Globulin 4.1 g/dL (2.5-4.5) 11/18/21 05:26 Albumin/Globulin Ratio 0.8 Ratio (1.1-2.1) L 11/18/21 05:26 Amylase 21 Units/L (25-115) L 11/14/21 23:15 Lipase 66 Units/L (73-393) L 11/14/21 23:15 Specimen Type Clean catch urine 11/15/21 04:44 Urine Color Yellow (YELLOW) 11/15/21 04:44 Urine Appearance Clear (CLEAR) 11/15/21 04:44 Urine pH 6.5 (5.0 - 8.0) 11/15/21 04:44 Ur Specific [place] 1.010 (1.000-1.030) 11/15/21 04:44 Urine Protein 3+ (NEGATIVE) 11/15/21 04:44 Urine Glucose (UA) Negative (NEGATIVE) 11/15/21 04:44 Urine Ketones Negative (NEGATIVE) 11/15/21 04:44 Urine Blood 1+ (NEGATIVE) 11/15/21 04:44 Urine Nitrite Negative (NEGATIVE) 11/15/21 04:44 Urine Bilirubin Negative (NEGATIVE) 11/15/21 04:44 Urine Urobilinogen Normal (NORMAL) 11/15/21 04:44 Ur Leukocyte Esterase Negative (NEGATIVE) 11/15/21 04:44 Urine RBC 0-2 /HPF (0-3) 11/15/21 04:44 Urine WBC 0-2 /HPF (0-5) 11/15/21 04:44 Ur Squamous Epith Cells Rare /HPF (NEGATIVE) 11/15/21 04:44 Urine Bacteria Negative /HPF (NEGATIVE) 11/15/21 04:44 Urine Mucus Rare /HPF (NEGATIVE) 11/15/21 04:44 Ur Culture Indicated? No/not indicated 11/15/21 04:44 SARS-CoV-2 (PCR) Negative (NEGATIVE) 11/14/21 21:02 - Plan (1) Bilateral pneumonia Status: Acute Qualifiers: Pneumonia type: due to Klebsiella pneumoniae Lung location: unspecified part of lung Qualified Code(s): J15.0 - Pneumonia due to Klebsiella pneumoniae Plan: SUPPLEMENTAL OXYGEN, ZOSYN 3.375G IV TID, SOLU-MEDROL 20MG IV Q8H, DUONEBS Q4H, PULMICORT NEBS BID, LASIX 20MG PO DAILY, AND HIS HOME MEDICATIONS WERE RESUMED. MONITOR LABS AND CHEST XRAY (2) Acute and chronic respiratory failure Status: Acute Qualifiers: Respiratory failure complication: hypoxia and hypercapnia Qualified Code(s): J96.21 - Acute and chronic respiratory failure with hypoxia; J96.22 - Acute and chronic respiratory failure with hypercapnia (3) Hypoxia Status: Acute
== END 2021-11-18 12:15 | disposition home health service (06) | DRG 177 ==
LOC: ER 16:38 → MED/SURG 22:11
PROVIDERS: ADMIT Internal Medicine; ATTEND Family Medicine
DX: Z99.81 Dependence on supplemental oxygen; R06.02 Shortness of breath; E78.2 Mixed hyperlipidemia; J15.0 Pneumonia due to Klebsiella pneumoniae; J44.9 Chronic obstructive pulmonary disease, unspecified; R94.31 Abnormal electrocardiogram [ECG] [EKG]; R60.0 Localized edema; Z86.16 Personal history of COVID-19; J96.22 Acute and chronic respiratory failure with hypercapnia; J96.21 Acute and chronic respiratory failure with hypoxia; R79.1 Abnormal coagulation profile; I10 Essential (primary) hypertension; I25.10 Atherosclerotic heart disease of native coronary artery without angina pectoris

== ENCOUNTER 2022-06-13 19:16 | Inpatient (IN) ==
--- NOTE | 2022-06-13 19:39 | EKG ---
Test Reason : SOB Blood Pressure : */* mmHG Vent. Rate : 132 BPM Atrial Rate : 234 BPM P-R Int : * ms QRS Dur : 102 ms QT Int : 294 ms P-R-T Axes : * 57 84 degrees QTc Int : 435 ms Atrial flutter with variable AV block Nonspecific ST abnormality Abnormal ECG No previous ECGs available Confirmed by Popeye Melendez ([id number]) on 06/14/2022 9:39:30 AM Referred By: Confirmed By: Popeye Melendez
--- NOTE | 2022-06-13 19:42 | DR.URIAD ---
HPI Time Seen Time Seen by Provider: 06/13/22 19:42 PCP Primary Care Physician: SALLY Complaint Chief Complaint:: SOB X 3 DAYS. HX COPD AND WEARS HOME 02. PER [facility], PT SATS WERE 67% ON ARRIVAL. COVID-19 Coronavirus risk:travel/contact w/high risk person: No Has patient experienced Coronavirus symptoms: Yes Coronavirus symptoms experienced: Shortness of Breath Source History Provided: Patient and EMS Mode of Arrival Mode of Arrival: In Arms Timing Onset of Chief Complaint: 06/10/22 PMH PMH Past Medical History: Yes Past Medical History: CHF, COPD, Coronary Artery Disease, Dyslipidemia and Hyp ertension Past Surgical History: Yes Surgical History: CABG/Valve Surgery, Ortho Surgery and Other Family History History of Family Medical Conditions: Yes Family Medical History: Coronary Artery Disease Social History Does patient currently use any type of tobacco product: No Have you used tobacco products in the last 12 months: No Does any household member use tobacco: No Alcohol Use: None Do you use any recreational Drugs:: No Lives Where: Home Travel Risk Coronavirus risk:travel/contact w/high risk person: No Has patient experienced Coronavirus symptoms: Yes Coronavirus symptoms experienced: Shortness of Breath Infectious screening In the last 2 months have you had wt loss of >10#?: NO Have you had fever, night sweats or hemotysis?: No Have you traveled outside the country in the last 6 months?: No Isolation: Droplet PE Vital Signs Vitals: Temperature 98.9 F Pulse Rate 116 Respiratory Rate 31 Blood Pressure [Right Arm] 120/60 Blood Pressure [Left Arm] 138/70 Blood Pressure 124/74 O2 Sat by Pulse Oximetry 84 ROR Labs Reviewed Result Diagrams: 06/13/22 19:45 06/13/22 19:45 Laboratory: WBC 18.2 X10^3/uL (3.6-10.0) H 06/13/22 19:45 RBC 4.18 X10^6/uL (4.7-6.0) L 06/13/22 19:45 Hgb 11.9 g/dL (13.5-18.0) L 06/13/22 19:45 Hct 35.8 % (42.0-54.0) L 06/13/22 19:45 MCV 85.8 fL (80.0-100.0) 06/13/22 19:45 MCH 28.6 pg (27.0-34.0) 06/13/22 19:45 MCHC 33.3 g/dL (33.0-35.0) 06/13/22 19:45 RDW 17.3 % (11.6-16.5) H 06/13/22 19:45 Plt Count 131 X10^3/uL (150.0-450.0) L 06/13/22 19:45 Plt Count Comment Decreased (ADEQUATE) 06/13/22 19:45 MPV 9.4 fL (7.4-11.0) 06/13/22 19:45 Neut % (Auto) 93.3 % (42.0-75.0) H 06/13/22 19:45 Lymph % (Auto) 2.1 % (21.0-51.0) L 06/13/22 19:45 [place] % (Auto) 4.4 % (0.0-13.0) 06/13/22 19:45 Eos % (Auto) 0.1 % (0.9-2.9) L 06/13/22 19:45 Baso % (Auto) 0.1 % (0.2-1.0) L 06/13/22 19:45 Neut # (Auto) 17.0 x10^3/uL (2.2-4.8) H 06/13/22 19:45 Lymph # (Auto) 0.4 X10^3/uL (1.3-2.9) L 06/13/22 19:45 [place] # (Auto) 0.8 x10^3/uL (0.3-0.8) 06/13/22 19:45 Eos # (Auto) 0.0 x10^3/uL (0.0-0.2) 06/13/22 19:45 Baso # (Auto) 0.0 X10^3/uL (0.0-0.1) 06/13/22 19:45 Absolute Nucleated RBC 0.0 /100WBC 06/13/22 19:45 Total Counted 100 06/13/22 19:45 Neutrophils % (Manual) 87 % (39-76) H 06/13/22 19:45 Band Neutrophils % 6 % (0-10) 06/13/22 19:45 Lymphocytes % (Manual) 2 % (13-43) L 06/13/22 19:45 Monocytes % (Manual) 5 % (4-9) 06/13/22 19:45 Plt Morphology Comment Normal (NORMAL) 06/13/22 19:45 RBC Morphology Abnormal (NORMAL) 06/13/22 19:45 Anisocytosis Slight A 06/13/22 19:45 Target Cells Slight A 06/13/22 19:45 Schistocytes Slight A 06/13/22 19:45 Sample Site Lr 06/13/22 20:16 ABG pH 7.370 (7.35-7.45) 06/13/22 20:16 ABG pCO2 47.0 mmHg (35.0-45.0) H 06/13/22 20:16 ABG pO2 54.0 mmHg (80.0-100.0) L 06/13/22 20:16 ABG HCO3 27.2 mmol/L (22-26) H 06/13/22 20:16 ABG O2 Saturation 87.0 % (90-100) L 06/13/22 20:16 ABG Base Excess 1.4 mmol/L (-2.0-2.0) 06/13/22 20:16 Anselmo Test Pos 06/13/22 20:16 A-a Gradient 172.0 mmHg 06/13/22 20:16 FiO2 40.0 06/13/22 20:16 Blood Gas Comments Kelly well ae 06/13/22 20:16 Sodium 143 mmol/L (136-145) 06/13/22 19:45 Corrected Sodium TNP 06/13/22 19:45 Potassium 4.0 mmol/L (3.5-5.1) 06/13/22 19:45 Chloride 106 mmol/L (98-107) 06/13/22 19:45 Carbon Dioxide 27.8 mmol/L (21-32) 06/13/22 19:45 BUN 36 mg/dL (7-18) H 06/13/22 19:45 Creatinine 1.93 mg/dL (0.70-1.30) H 06/13/22 19:45 Est GFR (MDRD) Af Amer 43 (>60) L 06/13/22 19:45 Est GFR (MDRD) Non-Af 36 (>60) L 06/13/22 19:45 Glucose 110 mg/dL (65-99) H 06/13/22 19:45 Calcium 8.9 mg/dL (8.5-10.1) 06/13/22 19:45 Corrected Calcium 10.7 mg/dL (8.5-10.1) H 06/13/22 19:45 Total Bilirubin 1.10 mg/dL (0.2-1.0) H 06/13/22 19:45 AST 18 Units/L (15-37) 06/13/22 19:45 ALT 14 Units/L (12-78) 06/13/22 19:45 Alkaline Phosphatase 115 Units/L (46-116) 06/13/22 19:45 Creatine Kinase 21 Units/L (39-308) L 06/13/22 19:45 Troponin I High Sens 37.4 ng/L (4.0-60.0) 06/13/22 19:45 B-Natriuretic Peptide 513 pg/mL (0-79) H* 06/13/22 19:45 Total Protein 6.2 g/dL (6.4-8.2) L 06/13/22 19:45 Albumin 1.8 g/dL (3.4-5.0) L 06/13/22 19:45 Globulin 4.4 g/dL (2.5-4.5) 06/13/22 19:45 Albumin/Globulin Ratio 0.4 Ratio (1.1-2.1) L 06/13/22 19:45 Specimen Type Clean catch urine 06/13/22: Urine Color Prachi (YELLOW) 06/13/22 21: Urine Appearance Clear (CLEAR) 06/13/22 21: Urine pH 5.0 (5.0 - 8.0) 06/13/22: Ur Specific [place] 1.010 (1.000-1.030) 06/13/22: Urine Protein 3+ (NEGATIVE) 06/13/22: Urine Glucose (UA) Negative (NEGATIVE) 06/13/22: Urine Ketones Negative (NEGATIVE) 06/13/22: Urine Blood 1+ (NEGATIVE) 06/13/22: Urine Nitrite Negative (NEGATIVE) 06/13/22: Urine Bilirubin Negative (NEGATIVE) 02/18/23 21:27 Urine Urobilinogen 1+ (NORMAL) 06/13/22 21:27 Ur Leukocyte Esterase 1+ (NEGATIVE) 06/13/22 21:27 Urine RBC 3-5 /HPF (0-3) A 06/13/22 21:27 Urine WBC 0-2 /HPF (0-5) 06/13/22 21:27 Ur Squamous Epith Cells Rare /HPF (NEGATIVE) 06/13/22 21:27 Ur Renal Epithelial Cell Few /HPF (NEGATIVE) 06/13/22 21:27 Amorphous Sediment 1+ /HPF (NEGATIVE) 06/13/22 21:27 Urine Bacteria Trace /HPF (NEGATIVE) 06/13/22 21:27 Hyaline Casts Many /LPF (NEGATIVE) 06/13/22 21:27 Granular Casts Moderate /LPF (NEGATIVE) 06/13/22 21:27 Urine Mucus Few /HPF (NEGATIVE) 06/13/22 21:27 Ur Culture Indicated? No/not indicated 06/13/22 21:27 SARS-CoV-2 (PCR) Negative (NEGATIVE) 06/13/22 21:43 Influenza Type A (PCR) Negative (NEGATIVE) 06/13/22 21:43 Influenza Type B (PCR) Negative (NEGATIVE) 06/13/22 21:43 RSV (PCR) Negative (NEGATIVE) 06/13/22 21:43 Opioid Opioid Risk Tool Age (Gautam box if 16-45): No History of Preadolescent Sexual Abuse: No Total: 0 Total Score Risk Category: Low Risk Copyright: Maycol SANDOVAL predicting aberrant behaviors Discharge Plan Discharge Plan Patient Disposition: 09 ADMITTED INPATIENT Condition: Stable Orders to Discharge Patient Discharge Orders: Transfer (Routine); Ordered 06/13/22 Ordered By: AUGUST KUMARI
[2022-06-13 19:56] LABS: BASOPHILS % (AUTO) 0.1 % (0.2-1.0); EOSINOPHILS % (AUTO) 0.1 % (0.9-2.9); HEMATOCRIT 35.8 % (42.0-54.0); HEMOGLOBIN 11.9 g/dL (13.5-18.0); LYMPHOCYTES # (AUTO) 0.4 X10^3/uL (1.3-2.9); LYMPHOCYTES % (AUTO) 2.1 % (21.0-51.0); MEAN CORPUSCULAR HEMOGLOBIN 28.6 pg (27.0-34.0); MEAN CORPUSCULAR HGB CONC 33.3 g/dL (33.0-35.0); MEAN CORPUSCULAR VOLUME 85.8 fL (80.0-100.0); MEAN PLATELET VOLUME 9.4 fL (7.4-11.0); MONOCYTES # (AUTO) 0.8 x10^3/uL (0.3-0.8); MONOCYTES % (AUTO) 4.4 % (0.0-13.0); NEUTROPHILS % (AUTO) 93.3 % (42.0-75.0); RED BLOOD COUNT 4.18 X10^6/uL (4.7-6.0); RED CELL DISTRIBUTION WIDTH 17.3 % (11.6-16.5); WHITE BLOOD COUNT 18.2 X10^3/uL (3.6-10.0)
[2022-06-13 20:10] LABS: ALANINE AMINOTRANSFERASE 14 Units/L (12-78); ALBUMIN 1.8 g/dL (3.4-5.0); ALKALINE PHOSPHATASE 115 Units/L (46-116); ASPARTATE AMINO TRANSFERASE 18 Units/L (15-37); BLOOD UREA NITROGEN 36 mg/dL (7-18); CALCIUM 8.9 mg/dL (8.5-10.1); CARBON DIOXIDE 27.8 mmol/L (21-32); CHLORIDE 106 mmol/L (98-107); COR CA(FOR HYPOALB) 10.7 mg/dL (8.5-10.1); CREATININE 1.93 mg/dL (0.70-1.30); SODIUM 143 mmol/L (136-145); TOTAL PROTEIN 6.2 g/dL (6.4-8.2); eGFR NON BLACK RACES 36 (>60)
--- NOTE | 2022-06-13 20:11 | RAD ---
STUDY: FRONTAL VIEW CHESTCOMPARISON: November 18, 2021HISTORY: weakness sobFINDINGS:Midline sternotomy wires are again noted.Progressively enlarging right pleural effusion is seen no moderate size with associated right lower lung zone airspace disease.The heart size is is persistently enlarged but stable from prior exam.The mediastinum is unremarkable.There is no evidence of a left-sided pleural effusion or gross pneumothorax.The trachea is midline.IMPRESSION:Progressively enlarging right pleural effusion is seen no moderate size with associated right lower lung zone airspace disease.The heart size is is persistently enlarged but stable from prior exam.Electronically signed by: Nico Bhatt (Jun 13, 2022 20:09:40)
[2022-06-13 20:15] LABS: ANISOCYTOSIS SLIGHT; BAND NEUTROPHILS % 6 % (0-10); PLATELET MORPHOLOGY COMMENT NORMAL (NORMAL); SCHISTOCYTES SLIGHT; TARGET CELLS SLIGHT
[2022-06-13] MEDS ORDERED: NS 1,000 ML IV 1,000 ML IV ONE (20:16)
[2022-06-13] MEDS ORDERED: NS 1,000 ML IV 1,000 ML ONE (20:17)
[2022-06-13 20:22] LABS: ABG ALLEN TEST POS; ABG BASE EXCESS 1.4 mmol/L (-2.0-2.0); ABG HCO3 27.2 mmol/L (22-26)
[2022-06-13 21:37] LABS: BILIRUBIN,URINE NEGATIVE (NEGATIVE); BLOOD/HEMOGLOBIN,URINE 1+ (NEGATIVE); GLUCOSE, URINE NEGATIVE (NEGATIVE); KETONES,URINE NEGATIVE (NEGATIVE); LEUKOCYTE ESTERASE ,URINE 1+ (NEGATIVE); NITRITES,URINE NEGATIVE (NEGATIVE); PROTEIN,URINE 3+ (NEGATIVE); UROBILINOGEN,URINE 1+ (NORMAL)
[2022-06-13 21:56] LABS: APPEARANCE,URINE CLEAR (CLEAR); COLOR,URINE AMBER (YELLOW)
[2022-06-13 21:59] LABS: BACTERIA,URINE TRACE /HPF (NEGATIVE); RENAL EPITHELIAL CELLS,URINE FEW /HPF (NEGATIVE); SQUAMOUS EPITHELIAL CELL,UR RARE /HPF (NEGATIVE)
[2022-06-13 22:00] LABS: GRANULAR CASTS,URINE MODERATE /LPF (NEGATIVE); HYALINE CASTS, URINE MANY /LPF (NEGATIVE)
[2022-06-13] MEDS ORDERED: TORADOL 30 MG VIAL IVP ONE (22:41)
[2022-06-13] MEDS ORDERED: LASIX IVP ONE (22:41)
[2022-06-13] MEDS ORDERED: LASIX ONE (22:55)
[2022-06-13] MEDS ORDERED: TORADOL 15 MG VIAL ONE (22:55)
[2022-06-13] MEDS ORDERED: ROCEPHIN VIAL 1 GRAM 1 G in NS 100 ML IV 100 ML IV ONE (23:01)
[2022-06-13] MEDS ORDERED: SOLU-Medrol 40 MG VIAL IVP ONE (23:02)
[2022-06-13] MEDS ORDERED: XOPENEX 1.25 MG/3 ML NEBULE NEB ONE (23:02)
[2022-06-13] MEDS ORDERED: SOLU-Medrol 40 MG VIAL ONE (23:07)
[2022-06-13] MEDS ORDERED: ROCEPHIN VIAL 1 GRAM ONE (23:07)
[2022-06-13] MEDS ORDERED: PATIENT'S HOME MEDICATION (Alprazolam 0.5 mg tablet) PO PRN (23:33)
[2022-06-13] MEDS ORDERED: ROCEPHIN VIAL 1 GRAM 1 G in NS 100 ML IV 100 ML IV SCH (23:33)
[2022-06-14] MEDS ORDERED: XANAX PO PRN (01:32)
[2022-06-14 02:29] VITALS: BMI 31.3
--- NOTE | 2022-06-14 05:30 | EKG ---
Test Reason : new onset afib Blood Pressure : */* mmHG Vent. Rate : 110 BPM Atrial Rate : * BPM P-R Int : * ms QRS Dur : 98 ms QT Int : 346 ms P-R-T Axes : * 62 78 degrees QTc Int : [address] elevation, consider inferior injury or acute infarct ACUTE MA / STEMI Abnormal ECG Severe artifact makes accurate interpretation not possible. When compared with ECG of 13-JUN-2022 19:37, (Unconfirmed) Junctional rhythm has replaced Atrial flutter ST elevation now present in Inferior leads Nonspecific T wave abnormality now evident in Anterior leads Confirmed by Popeye Melendez ([id number]) on 06/14/2022 9:38:30 AM Referred By: Confirmed By: Popeye Melendez
[2022-06-14 06:31] LABS: INR 1.57 (0.8-1.3)
[2022-06-14 06:36] LABS: BASOPHILS % (AUTO) 0 % (0.2-1.0); EOSINOPHILS # (AUTO) 0.1 x10^3/uL (0.0-0.2); EOSINOPHILS % (AUTO) 0.3 % (0.9-2.9); HEMATOCRIT 37.5 % (42.0-54.0); HEMOGLOBIN 12.1 g/dL (13.5-18.0); LYMPHOCYTES # (AUTO) 0.3 X10^3/uL (1.3-2.9); LYMPHOCYTES % (AUTO) 1.5 % (21.0-51.0); MEAN CORPUSCULAR HEMOGLOBIN 28.1 pg (27.0-34.0); MEAN CORPUSCULAR HGB CONC 32.3 g/dL (33.0-35.0); MEAN CORPUSCULAR VOLUME 87.1 fL (80.0-100.0); MEAN PLATELET VOLUME 9.8 fL (7.4-11.0); MONOCYTES # (AUTO) 0.5 x10^3/uL (0.3-0.8); MONOCYTES % (AUTO) 2.2 % (0.0-13.0); NEUTROPHILS # (AUTO) 21.3 x10^3/uL (2.2-4.8); RED CELL DISTRIBUTION WIDTH 17.7 % (11.6-16.5); WHITE BLOOD COUNT 22.2 X10^3/uL (3.6-10.0)
[2022-06-14 06:37] LABS: ALANINE AMINOTRANSFERASE 14 Units/L (12-78); ALBUMIN 1.7 g/dL (3.4-5.0); ALKALINE PHOSPHATASE 114 Units/L (46-116); ASPARTATE AMINO TRANSFERASE 21 Units/L (15-37); BLOOD UREA NITROGEN 40 mg/dL (7-18); CALCIUM 9.1 mg/dL (8.5-10.1); CARBON DIOXIDE 24.8 mmol/L (21-32); CHLORIDE 106 mmol/L (98-107); COR CA(FOR HYPOALB) 10.9 mg/dL (8.5-10.1); CREATININE 2.13 mg/dL (0.70-1.30); MAGNESIUM 2.4 mg/dL (2.0-2.9); SODIUM 142 mmol/L (136-145); TOTAL PROTEIN 6.2 g/dL (6.4-8.2); eGFR NON BLACK RACES 32 (>60)
[2022-06-14 07:02] LABS: ANISOCYTOSIS SLIGHT; PLATELET MORPHOLOGY COMMENT NORMAL (NORMAL)
[2022-06-14] MEDS: XOPENEX 1.25 MG/3 ML NEBULE NEB SCH ×4 (08:08→21:00)
[2022-06-14] MEDS: PULMICORT NEB TX 0.5 MG NEB SCH ×2 (08:08→21:00)
[2022-06-14] MEDS ORDERED: SOLU-Medrol 40 MG VIAL IVP SCH (09:00)
[2022-06-14] MEDS ORDERED: TOPROL XL PO SCH ×2 (09:00→13:00)
[2022-06-14] MEDS ORDERED: TOPROL XL PO ONE ×2 (09:28→12:54)
[2022-06-14] MEDS: PEPCID TAB 20 MG PO SCH (09:35)
[2022-06-14] MEDS: ELIQUIS PO SCH ×2 (09:35→21:16)
[2022-06-14] MEDS: NORVASC TAB 10 MG PO SCH ×2 (09:35→10:51)
[2022-06-14] MEDS: K-DUR TAB 20 MEQ PO SCH (09:36)
[2022-06-14] MEDS: FLOMAX PO SCH (09:36)
[2022-06-14] MEDS: LASIX IVP SCH ×2 (09:37→16:57)
[2022-06-14] MEDS ORDERED: ~ZOSYN/LEVAQUIN (Pneumonia) XX ONE (11:58)
[2022-06-14] MEDS ORDERED: LEVAQUIN PREMIX IV 750 MG 150 ML IV SCH (12:00)
[2022-06-14] MEDS ORDERED: NS 250 ML IV 0 ML IV ONE (12:54)
[2022-06-14] MEDS: LEVAQUIN PREMIX IV 750 MG 750 MG/150 ML BAG IV SCH (12:55)
[2022-06-14] MEDS: TOPROL XL PO ONE ×2 (12:56→13:43)
[2022-06-14] MEDS ORDERED: ZOSYN VIAL 4.5 GRAMS 4.5 G in NS 100 ML IV + SPIKE MINIBAG* 100 ML IV SCH (14:00)
[2022-06-14] MEDS: ZOSYN VIAL 3.375 GRAMS 3.375 G in NS 100 ML IV 100 ML IV SCH ×2 (15:03→21:17)
[2022-06-14] MEDS: XANAX PO SCH ×2 (15:03→21:17)
[2022-06-14] MEDS ORDERED: MAALOX or MYLANTA PO PRN (16:13)
[2022-06-14] MEDS ORDERED: VISTARIL PO PRN (19:48)
[2022-06-14] MEDS ORDERED: ROCEPHIN VIAL 1 GRAM 1 G in NS 100 ML IV 100 ML IV SCH (21:00)
[2022-06-14] MEDS: ZOCOR TAB 10 MG PO SCH (21:16)
[2022-06-14] MEDS: PERCOCET TAB 5/325 MG PO PRN (21:16)
[2022-06-14] MEDS ORDERED: XANAX PO ONE (22:42)
[2022-06-15 04:49] LABS: BASOPHILS % (AUTO) 0 % (0.2-1.0); HEMATOCRIT 34.9 % (42.0-54.0); HEMOGLOBIN 11.4 g/dL (13.5-18.0); LYMPHOCYTES # (AUTO) 0.6 X10^3/uL (1.3-2.9); LYMPHOCYTES % (AUTO) 3.4 % (21.0-51.0); MEAN CORPUSCULAR HEMOGLOBIN 28.1 pg (27.0-34.0); MEAN CORPUSCULAR HGB CONC 32.8 g/dL (33.0-35.0); MEAN CORPUSCULAR VOLUME 85.8 fL (80.0-100.0); MEAN PLATELET VOLUME 9.5 fL (7.4-11.0); MONOCYTES # (AUTO) 0.9 x10^3/uL (0.3-0.8); MONOCYTES % (AUTO) 4.4 % (0.0-13.0); NEUTROPHILS # (AUTO) 17.7 x10^3/uL (2.2-4.8); NEUTROPHILS % (AUTO) 92.2 % (42.0-75.0); RED BLOOD COUNT 4.07 X10^6/uL (4.7-6.0); RED CELL DISTRIBUTION WIDTH 17.8 % (11.6-16.5); WHITE BLOOD COUNT 19.2 X10^3/uL (3.6-10.0)
[2022-06-15 04:58] LABS: ALBUMIN 1.7 g/dL (3.4-5.0); CALCIUM 9.5 mg/dL (8.5-10.1); CARBON DIOXIDE 25.6 mmol/L (21-32); COR CA(FOR HYPOALB) 11.3 mg/dL (8.5-10.1); CREATININE 2.22 mg/dL (0.70-1.30); TOTAL PROTEIN 6.8 g/dL (6.4-8.2)
[2022-06-15 05:28] LABS: BAND NEUTROPHILS % 4 % (0-10); PLATELET MORPHOLOGY COMMENT NORMAL (NORMAL)
[2022-06-15 05:29] LABS: ANISOCYTOSIS SLIGHT; TARGET CELLS SLIGHT
[2022-06-15] MEDS: XANAX PO SCH ×5 (05:48→21:23)
[2022-06-15] MEDS: ZOSYN VIAL 3.375 GRAMS 3.375 G in NS 100 ML IV 100 ML IV SCH ×3 (07:08→21:13)
[2022-06-15 08:28] LABS: ABG ALLEN TEST POS; ABG BASE EXCESS -0.6 mmol/L (-2.0-2.0); ABG HCO3 25.8 mmol/L (22-26)
[2022-06-15] MEDS: XOPENEX 1.25 MG/3 ML NEBULE NEB SCH ×4 (08:30→21:00)
[2022-06-15] MEDS: PULMICORT NEB TX 0.5 MG NEB SCH ×2 (08:30→21:00)
--- NOTE | 2022-06-15 09:04 | RAD ---
HISTORYHypoxia pleural effusionSTUDYAP chestCOMPARISONFebruary 2022FINDINGSSimilar cardiomegaly and no definite abnormality involving the left lung.Persistent right basal density consistent with airspace disease and probable pleural fluid. The pleural effusion is less prominent than on the prior exam.IMPRESSIONPersistent right basal findings, nonspecific but compatible with pneumonia/atelectasis and probable pleural effusion. Decubitus views would be helpful.Electronically signed by: LILA ARGUELLO (Jun 15, 2022 09:03:20)
[2022-06-15] MEDS ORDERED: TOPROL XL PO ONE (09:07)
[2022-06-15] MEDS: TOPROL XL PO SCH (09:51)
[2022-06-15] MEDS: PERCOCET TAB 5/325 MG PO PRN (09:52)
[2022-06-15] MEDS: LASIX IVP SCH ×2 (09:52→16:39)
[2022-06-15] MEDS: K-DUR TAB 20 MEQ PO SCH (09:52)
[2022-06-15] MEDS: ELIQUIS PO SCH ×3 (09:52→21:39)
[2022-06-15] MEDS: FLOMAX PO SCH (09:53)
[2022-06-15] MEDS: NORVASC TAB 10 MG PO SCH (10:04)
[2022-06-15] MEDS ORDERED: TOPROL XL PO SCH (13:00)
[2022-06-15] MEDS: ZOCOR TAB 10 MG PO SCH ×2 (21:14→21:40)
[2022-06-16 05:20] LABS: BASOPHILS % (AUTO) 0 % (0.2-1.0); HEMOGLOBIN 11.8 g/dL (13.5-18.0); LYMPHOCYTES # (AUTO) 0.8 X10^3/uL (1.3-2.9); LYMPHOCYTES % (AUTO) 4.8 % (21.0-51.0); MEAN CORPUSCULAR HGB CONC 32.8 g/dL (33.0-35.0); MEAN CORPUSCULAR VOLUME 85.4 fL (80.0-100.0); MEAN PLATELET VOLUME 9.5 fL (7.4-11.0); MONOCYTES # (AUTO) 0.8 x10^3/uL (0.3-0.8); MONOCYTES % (AUTO) 4.5 % (0.0-13.0); NEUTROPHILS # (AUTO) 15.2 x10^3/uL (2.2-4.8); NEUTROPHILS % (AUTO) 90.7 % (42.0-75.0); RED BLOOD COUNT 4.22 X10^6/uL (4.7-6.0); RED CELL DISTRIBUTION WIDTH 18.1 % (11.6-16.5); WHITE BLOOD COUNT 16.8 X10^3/uL (3.6-10.0)
[2022-06-16] MEDS: ZOSYN VIAL 3.375 GRAMS 3.375 G in NS 100 ML IV 100 ML IV SCH ×3 (05:33→22:13)
[2022-06-16 05:37] LABS: ALBUMIN 1.7 g/dL (3.4-5.0); CALCIUM 9.6 mg/dL (8.5-10.1); CARBON DIOXIDE 30.5 mmol/L (21-32); COR CA(FOR HYPOALB) 11.4 mg/dL (8.5-10.1); CREATININE 2.15 mg/dL (0.70-1.30); TOTAL PROTEIN 7.1 g/dL (6.4-8.2)
[2022-06-16 05:57] LABS: BAND NEUTROPHILS % 6 % (0-10)
[2022-06-16 05:59] LABS: ANISOCYTOSIS SLIGHT; PLATELET MORPHOLOGY COMMENT NORMAL (NORMAL)
[2022-06-16] MEDS: XANAX PO SCH ×3 (06:26→22:22)
--- NOTE | 2022-06-16 08:28 | RAD ---
HISTORYFollow-up congestive heart failure, COPDSTUDYChest AP [id number]/20/23FINDINGSPatien t is status post median sternotomy and CABG. The heart is enlarged. No definite congestive heart failure is noted. Increased density remains in the right lower hemithorax likely due to a combination of pleural fluid in underlying infiltrate. The appearance is unchanged from the prior examination. The right upper lung field and left lung are clear with the exception of some subsegmental atelectasis in the left lung base. Bony thorax is unremarkable.IMPRESSIONContinued cardiomegaly without congestive heart failureContinued increased density right lower hemithorax likely due to a combination of right pleural effusion and right lower lobe infiltrate.Subsegmental atelectasis left lung baseElectronically signed by: SUSAN JOYCE (Jun 16, 2022 08:27:27)
[2022-06-16] MEDS ORDERED: TOPROL XL PO ONE (09:10)
[2022-06-16] MEDS: LASIX IVP SCH ×2 (09:30→17:45)
[2022-06-16] MEDS: ELIQUIS PO SCH ×2 (09:30→20:49)
[2022-06-16] MEDS: PEPCID TAB 20 MG PO SCH (09:30)
[2022-06-16] MEDS: FLOMAX PO SCH (09:30)
[2022-06-16] MEDS: XOPENEX 1.25 MG/3 ML NEBULE NEB SCH ×4 (09:38→20:05)
[2022-06-16] MEDS: PULMICORT NEB TX 0.5 MG NEB SCH ×2 (09:38→20:05)
[2022-06-16] MEDS: TOPROL XL PO SCH (09:53)
[2022-06-16] MEDS: NORVASC TAB 10 MG PO SCH (09:54)
[2022-06-16] MEDS: LEVAQUIN PREMIX IV 750 MG 750 MG/150 ML BAG IV SCH ×2 (09:56→13:23)
[2022-06-16] MEDS: K-DUR TAB 20 MEQ PO SCH (09:56)
[2022-06-16 11:10] LABS: BILIRUBIN,URINE NEGATIVE (NEGATIVE); BLOOD/HEMOGLOBIN,URINE 1+ (NEGATIVE); GLUCOSE, URINE NEGATIVE (NEGATIVE); KETONES,URINE NEGATIVE (NEGATIVE); LEUKOCYTE ESTERASE ,URINE NEGATIVE (NEGATIVE); NITRITES,URINE NEGATIVE (NEGATIVE); PROTEIN,URINE 2+ (NEGATIVE); UROBILINOGEN,URINE NORMAL (NORMAL)
[2022-06-16 11:19] LABS: APPEARANCE,URINE CLEAR (CLEAR); COLOR,URINE YELLOW (YELLOW)
[2022-06-16 11:20] LABS: BACTERIA,URINE NEGATIVE /HPF (NEGATIVE); RBC,URINE 0-2 /HPF (0-3); SQUAMOUS EPITHELIAL CELL,UR RARE /HPF (NEGATIVE)
--- NOTE | 2022-06-16 13:09 | PCM.PROG ---
Progress Note Progress Note for Day of Date of Exam: 06/15/22 Subjective Subjective: Pt is an 82 year old male admitted for CHF exacerbation, COPD exacerbation, Acute respiratory failure, Pneumonia, and Acute renal failure. This morning patient is currently requiring BiPAP. Nursing states that he has been confused at times. Labs/imaging: Wbc 19.2, Hgb 11.4, Plt 165, Na 143, K 4.6, Creatinine 2.22, Glucose 147, CXR: Persistent right basal findings, nonspecific but compatible with pneumonia/atelectasis and probable pleural effusion. Will order ABG to evaluate respiratory status. Pt is known to me and has had reaction of confusion at times with steroids, will discontinue Solumedrol today and continue to observe mental status. Pt is currently on antibiotics: Zosyn and Levaquin. IV lasix 20mg BID, scheduled bronchodilators. Will increase IV lasix to 40mg bid. Otherwise, continue with current treatment plan. Wean off BiPAP as tolerated. Continue to closely monitor and follow up labs/imaging. Time spent on clinical assessment, reviewing labs and imaging, decision making, and documentation greater than 45 minutes. Past Medical Family Social History Allergies: Allergies No Known Drug Allergies Allergy (Unknown, Verified 06/13/22 19:35) Onset Date: 01/12/2019 Review of Systems ROS changes noted: See HPI Vital Signs and I&O's Vital Signs: Temperature 98.1 F Pulse Rate [Left Brachial] 101 Pulse Rate 98 Respiratory Rate 18 Blood Pressure [Right Arm] 100/62 Blood Pressure [Left Arm] 115/67 Blood Pressure 119/58 O2 Sat by Pulse Oximetry 94 Intake and Output: Intake & Output 06/12/22 06/13/22 06/14/22 06/15/22 23:59 23:59 23:59 23:59 Intake Total 760 / 760 120 / 120 Balance 760 / 760 120 / 120 Physical Exam Oriented: Normal Eyes: Normal Ear: Normal Nose: Normal Respiratory: Wheezes and Rales Cardiovascular: Normal : Normal Auscultation: Bowel Sounds: Normal Palpation: Normal Tenderness: Normal Skin: Normal Musculoskeletal: Normal Mood Description: Calm Speech Pattern: Unclear (wearing BiPAP) Laboratory and Diagnostics Result Diagrams: 06/16/22 04:35 06/16/22 04:35 Labs: Laboratory WBC 19.2 X10^3/uL (3.6-10.0) H 06/15/22 04:15 RBC 4.07 X10^6/uL (4.7-6.0) L 06/15/22 04:15 Hgb 11.4 g/dL (13.5-18.0) L 06/15/22 04:15 Hct 34.9 % (42.0-54.0) L 06/15/22 04:15 MCV 85.8 fL (80.0-100.0) 06/15/22 04:15 MCH 28.1 pg (27.0-34.0) 06/15/22 04:15 MCHC 32.8 g/dL (33.0-35.0) L 06/15/22 04:15 RDW 17.8 % (11.6-16.5) H 06/15/22 04:15 Plt Count 165 X10^3/uL (150.0-450.0) 06/15/22 04:15 Plt Count Comment Adequate (ADEQUATE) 06/15/22 04:15 MPV 9.5 fL (7.4-11.0) 06/15/22 04:15 Neut % (Auto) 92.2 % (42.0-75.0) H 06/15/22 04:15 Lymph % (Auto) 3.4 % (21.0-51.0) L 06/15/22 04:15 [place] % (Auto) 4.4 % (0.0-13.0) 06/15/22 04:15 Eos % (Auto) 0.0 % (0.9-2.9) L 06/15/22 04:15 Baso % (Auto) 0 % (0.2-1.0) L 06/15/22 04:15 Neut # (Auto) 17.7 x10^3/uL (2.2-4.8) H 06/15/22 04:15 Lymph # (Auto) 0.6 X10^3/uL (1.3-2.9) L 06/15/22 04:15 [place] # (Auto) 0.9 x10^3/uL (0.3-0.8) H 06/15/22 04:15 Eos # (Auto) 0.0 x10^3/uL (0.0-0.2) 06/15/22 04:15 Baso # (Auto) 0.0 X10^3/uL (0.0-0.1) 06/15/22 04:15 Absolute Nucleated RBC 0.1 /100WBC 06/15/22 04:15 Total Counted 100 06/15/22 04:15 Neutrophils % (Manual) 89 % (39-76) H 06/15/22 04:15 Band Neutrophils % 4 % (0-10) 06/15/22 04:15 Lymphocytes % (Manual) 5 % (13-43) L 06/15/22 04:15 Monocytes % (Manual) 2 % (4-9) L 06/15/22 04:15 Plt Morphology Comment Normal (NORMAL) 06/15/22 04:15 RBC Morphology Abnormal (NORMAL) 06/15/22 04:15 Anisocytosis Slight A 06/15/22 04:15 Target Cells Slight A 06/15/22 04:15 Schistocytes Slight A 06/13/22 19:45 PT 18.2 SECONDS (11.8-14.3) 06/14/22 05:43 INR Target Range - 06/14/22 05:43 INR 1.57 (0.8-1.3) H 06/14/22 05:43 APTT 38.5 SECONDS (22.9-36.5) H 06/14/22 05:43 PTT Comment - 06/14/22 05:43 Sample Site Rr 06/15/22 08:26 ABG pH 7.330 (7.35-7.45) L 06/15/22 08:26 ABG pCO2 49.0 mmHg (35.0-45.0) H 06/15/22 08:26 ABG pO2 84.0 mmHg (80.0-100.0) 06/15/22 08:26 ABG HCO3 25.8 mmol/L (22-26) 06/15/22 08:26 ABG O2 Saturation 95.0 % (90-100) 06/15/22 08:26 ABG Base Excess -0.6 mmol/L (-2.0-2.0) 06/15/22 08:26 Anselmo Test Pos 06/15/22 08:26 A-a Gradient 247.0 mmHg 06/15/22 08:26 FiO2 55.0 06/15/22 08:26 Blood Gas Comments Kelly well cb 06/15/22 08:26 Sodium 143 mmol/L (136-145) 06/15/22 04:15 Corrected Sodium 144 mmol/L (136-145) 06/15/22 04:15 Potassium 4.6 mmol/L (3.5-5.1) 06/15/22 04:15 Chloride 105 mmol/L (98-107) 06/15/22 04:15 Carbon Dioxide 25.6 mmol/L (21-32) 06/15/22 04:15 BUN 60 mg/dL (7-18) H 06/15/22 04:15 Creatinine 2.22 mg/dL (0.70-1.30) H 06/15/22 04:15 Est GFR (MDRD) Af Amer 37 (>60) L 06/15/22 04:15 Est GFR (MDRD) Non-Af 30 (>60) L 06/15/22 04:15 Glucose 147 mg/dL (65-99) H 06/15/22 04:15 Calcium 9.5 mg/dL (8.5-10.1) 06/15/22 04:15 Corrected Calcium 11.3 mg/dL (8.5-10.1) H 06/15/22 04:15 Magnesium 2.4 mg/dL (2.0-2.9) 06/14/22 05:43 Total Bilirubin 0.80 mg/dL (0.2-1.0) 06/15/22 04:15 AST 20 Units/L (15-37) 06/15/22 04:15 ALT 20 Units/L (12-78) 06/15/22 04:15 Alkaline Phosphatase 121 Units/L (46-116) H 06/15/22 04:15 Creatine Kinase 28 Units/L (39-308) L 06/14/22 11:15 Troponin I High Sens 30.7 ng/L (4.0-60.0) 06/14/22 11:17 B-Natriuretic Peptide 513 pg/mL (0-79) H* 06/13/22 19:45 Total Protein 6.8 g/dL (6.4-8.2) 06/15/22 04:15 Albumin 1.7 g/dL (3.4-5.0) L 06/15/22 04:15 Globulin 5.1 g/dL (2.5-4.5) H 06/15/22 04:15 Albumin/Globulin Ratio 0.3 Ratio (1.1-2.1) L 06/15/22 04:15 Specimen Type Clean catch urine 06/13/22 21: Urine Color Prachi (YELLOW) 06/13/22 21: Urine Appearance Clear (CLEAR) 06/13/22 21: Urine pH 5.0 (5.0 - 8.0) 06/13/22 21: Ur Specific [place] 1.010 (1.000-1.030) 06/13/22 21: Urine Protein 3+ (NEGATIVE) 06/13/22 21: Urine Glucose (UA) Negative (NEGATIVE) 06/13/22: Urine Ketones Negative (NEGATIVE) 06/13/22 21: Urine Blood 1+ (NEGATIVE) 06/13/22 21: Urine Nitrite Negative (NEGATIVE) 06/13/22: Urine Bilirubin Negative (NEGATIVE) 06/13/22: Urine Urobilinogen 1+ (NORMAL) 06/13/22 21: Ur Leukocyte Esterase 1+ (NEGATIVE) 06/13/22 21: Urine RBC 3-5 /HPF (0-3) A 06/13/22: Urine WBC 0-2 /HPF (0-5) 06/13/22 21: Ur Squamous Epith Cells Rare /HPF (NEGATIVE) 06/13/22 21: Ur Renal Epithelial Cell Few /HPF (NEGATIVE) 06/13/22 21: Amorphous Sediment 1+ /HPF (NEGATIVE) 06/13/22 21: Urine Bacteria Trace /HPF (NEGATIVE) 06/13/22 21: Hyaline Casts Many /LPF (NEGATIVE) 06/13/22 21: Granular Casts Moderate /LPF (NEGATIVE) 06/13/22 21: Urine Mucus Few /HPF (NEGATIVE) 06/13/22 21: Ur Culture Indicated? No/not indicated 06/13/22 21: SARS-CoV-2 (PCR) Negative (NEGATIVE) 06/13/22 21:43 Influenza Type A (PCR) Negative (NEGATIVE) 06/13/22 21: Influenza Type B (PCR) Negative (NEGATIVE) 06/13/22 21: RSV (PCR) Negative (NEGATIVE) 06/13/22 21:43 Plan (1) Acute and chronic respiratory failure: Status: Acute Qualifiers: Respiratory failure complication: hypoxia and hypercapnia Qualified Code(s): J96.21 - Acute and chronic respiratory failure with hypoxia; J96.22 - Acute and chronic respiratory failure with hypercapnia (2) CHF exacerbation: Status: Acute (3) COPD exacerbation: Status: Acute (4) Bilateral pneumonia: Status: Acute Qualifiers: Lung location: unspecified part of lung Pneumonia type: due to Klebsiella pneumoniae Qualified Code(s): J15.0 - Pneumonia due to Klebsiella pneumoniae (5) Acute renal failure: Status: Acute
--- NOTE | 2022-06-16 13:20 | PCM.PROG ---
Progress Note Progress Note for Day of Date of Exam: 06/16/22 Subjective Subjective: Pt is an 82 year old male admitted for CHF exacerbation, COPD exacerbation, Acute respiratory failure, Pneumonia, and Acute renal failure. This morning patient is still requiring BiPAP support. No acute events overnight. On exam patient does recognize me and appears alert and oriented. Labs/imaging: Wbc 16.8, Hgb 11.8, Plt 184, Na 148, K 4.9, Creatinine 2.15, Glucose 136, CXR: Continued cardiomegaly without congestive heart failure. Continued increased density right lower hemithorax likely due to a combination of right pleural effusion and right lower lobe infiltrate. Subsegmental atel ectasis left lung base. ABG was obtained that revealed: pH 7.33, pCO2 49, pO2 84, HCO3 25, O2sat 95% on FiO2 55%. Pt is currently on antibiotics: Zosyn and Levaquin. IV lasix 40mg BID, scheduled bronchodilators. Will have respiratory therapy place patient on trial of heated high flow. Otherwise, continue with current treatment plan. Continue to closely monitor and follow up labs/imaging. Time spent on clinical assessment, reviewing labs and imaging, decision making, and documentation greater than 45 minutes. Past Medical Family Social History Allergies: Allergies No Known Drug Allergies Allergy (Unknown, Verified 06/13/22 19:35) Onset Date: 01/12/2019 Review of Systems ROS: No change since H&P ROS changes noted: see HPI Vital Signs and I&O's Vital Signs: Temperature 97.6 F Pulse Rate [Left Brachial] 104 Pulse Rate 116 Respiratory Rate 20 Blood Pressure [Right Arm] 123/81 Blood Pressure [Left Arm] 115/67 Blood Pressure 119/58 O2 Sat by Pulse Oximetry 95 Intake and Output: Intake & Output 06/13/22 06/14/22 06/15/22 06/16/22 23:59 23:59 23:59 23:59 Intake Total 760 / 760 581 / 581 130 / 130 Balance 760 / 760 581 / 581 130 / 130 Physical Exam Oriented: Normal Eyes: Normal Ear: Normal Nose: Normal Respiratory: Wheezes and Rales Cardiovascular: Normal : Normal Auscultation: Bowel Sounds: Normal Tenderness: Normal Skin: Normal Musculoskeletal: Normal Mood Description: Calm Speech Pattern: Unclear (wearing BiPAP) Laboratory and Diagnostics Result Diagrams: 06/16/22 04:35 06/16/22 04:35 Labs: Laboratory WBC 16.8 X10^3/uL (3.6-10.0) H 06/16/22 04:35 RBC 4.22 X10^6/uL (4.7-6.0) L 06/16/22 04:35 Hgb 11.8 g/dL (13.5-18.0) L 06/16/22 04:35 Hct 36.0 % (42.0-54.0) L 06/16/22 04:35 MCV 85.4 fL (80.0-100.0) 06/16/22 04:35 MCH 28.0 pg (27.0-34.0) 06/16/22 04:35 MCHC 32.8 g/dL (33.0-35.0) L 06/16/22 04:35 RDW 18.1 % (11.6-16.5) H 06/16/22 04:35 Plt Count 184 X10^3/uL (150.0-450.0) 06/16/22 04:35 Plt Count Comment Adequate (ADEQUATE) 06/16/22 04:35 MPV 9.5 fL (7.4-11.0) 06/16/22 04:35 Neut % (Auto) 90.7 % (42.0-75.0) H 06/16/22 04:35 Lymph % (Auto) 4.8 % (21.0-51.0) L 06/16/22 04:35 [place] % (Auto) 4.5 % (0.0-13.0) 06/16/22 04:35 Eos % (Auto) 0.0 % (0.9-2.9) L 06/16/22 04:35 Baso % (Auto) 0 % (0.2-1.0) L 06/16/22 04:35 Neut # (Auto) 15.2 x10^3/uL (2.2-4.8) H 06/16/22 04:35 Lymph # (Auto) 0.8 X10^3/uL (1.3-2.9) L 06/16/22 04:35 [place] # (Auto) 0.8 x10^3/uL (0.3-0.8) 06/16/22 04:35 Eos # (Auto) 0.0 x10^3/uL (0.0-0.2) 06/16/22 04:35 Baso # (Auto) 0.0 X10^3/uL (0.0-0.1) 06/16/22 04:35 Absolute Nucleated RBC 0.1 /100WBC 06/16/22 04:35 Total Counted 100 06/16/22 04:35 Neutrophils % (Manual) 84 % (39-76) H 06/16/22 04:35 Band Neutrophils % 6 % (0-10) 06/16/22 04:35 Lymphocytes % (Manual) 8 % (13-43) L 06/16/22 04:35 Monocytes % (Manual) 2 % (4-9) L 06/16/22 04:35 Plt Morphology Comment Normal (NORMAL) 06/16/22 04:35 RBC Morphology Abnormal (NORMAL) 06/16/22 04:35 Anisocytosis Slight A 06/16/22 04:35 Target Cells Slight A 06/15/22 04:15 Schistocytes Slight A 06/13/22 19:45 PT 18.2 SECONDS (11.8-14.3) 06/14/22 05:43 INR Target Range - 06/14/22 05:43 INR 1.57 (0.8-1.3) H 06/14/22 05:43 APTT 38.5 SECONDS (22.9-36.5) H 06/14/22 05:43 PTT Comment - 06/14/22 05:43 Sample Site Rr 06/15/22 08:26 ABG pH 7.330 (7.35-7.45) L 06/15/22 08:26 ABG pCO2 49.0 mmHg (35.0-45.0) H 06/15/22 08:26 ABG pO2 84.0 mmHg (80.0-100.0) 06/15/22 08:26 ABG HCO3 25.8 mmol/L (22-26) 06/15/22 08:26 ABG O2 Saturation 95.0 % (90-100) 06/15/22 08:26 ABG Base Excess -0.6 mmol/L (-2.0-2.0) 06/15/22 08:26 Anselmo Test Pos 06/15/22 08:26 A-a Gradient 247.0 mmHg 06/15/22 08:26 FiO2 55.0 06/15/22 08:26 Blood Gas Comments Kelly well cb 06/15/22 08:26 Sodium 148 mmol/L (136-145) H 06/16/22 04:35 Corrected Sodium 149 mmol/L (136-145) H 06/16/22 04:35 Potassium 4.9 mmol/L (3.5-5.1) 06/16/22 04:35 Chloride 109 mmol/L (98-107) H 06/16/22 04:35 Carbon Dioxide 30.5 mmol/L (21-32) 06/16/22 04:35 BUN 74 mg/dL (7-18) H 06/16/22 04:35 Creatinine 2.15 mg/dL (0.70-1.30) H 06/16/22 04:35 Est GFR (MDRD) Af Amer 38 (>60) L 06/16/22 04:35 Est GFR (MDRD) Non-Af 32 (>60) L 06/16/22 04:35 Glucose 136 mg/dL (65-99) H 06/16/22 04:35 Calcium 9.6 mg/dL (8.5-10.1) 06/16/22 04:35 Corrected Calcium 11.4 mg/dL (8.5-10.1) H 06/16/22 04:35 Magnesium 2.4 mg/dL (2.0-2.9) 06/14/22 05:43 Total Bilirubin 0.70 mg/dL (0.2-1.0) 06/16/22 04:35 AST 20 Units/L (15-37) 06/16/22 04:35 ALT 23 Units/L (12-78) 06/16/22 04:35 Alkaline Phosphatase 123 Units/L (46-116) H 06/16/22 04:35 Creatine Kinase 28 Units/L (39-308) L 06/14/22 11:15 Troponin I High Sens 30.7 ng/L (4.0-60.0) 06/14/22 11:17 B-Natriuretic Peptide 513 pg/mL (0-79) H* 06/13/22 19:45 Total Protein 7.1 g/dL (6.4-8.2) 06/16/22 04:35 Albumin 1.7 g/dL (3.4-5.0) L 06/16/22 04:35 Globulin 5.4 g/dL (2.5-4.5) H 06/16/22 04:35 Albumin/Globulin Ratio 0.3 Ratio (1.1-2.1) L 06/16/22 04:35 Specimen Type Catherized urine 06/16/22 10:30 Urine Color Yellow (YELLOW) 06/16/22 10:30 Urine Appearance Clear (CLEAR) 06/16/22 10:30 Urine pH 5.0 (5.0 - 8.0) 06/16/22 10:30 Ur Specific [place] 1.015 (1.000-1.030) 06/16/22 10:30 Urine Protein 2+ (NEGATIVE) 06/16/22 10:30 Urine Glucose (UA) Negative (NEGATIVE) 06/16/22 10:30 Urine Ketones Negative (NEGATIVE) 06/16/22 10:30 Urine Blood 1+ (NEGATIVE) 06/16/22 10:30 Urine Nitrite Negative (NEGATIVE) 06/16/22 10:30 Urine Bilirubin Negative (NEGATIVE) 06/16/22 10:30 Urine Urobilinogen Normal (NORMAL) 06/16/22 10:30 Ur Leukocyte Esterase Negative (NEGATIVE) 06/16/22 10:30 Urine RBC 0-2 /HPF (0-3) 06/16/22 10:30 Urine WBC None seen /HPF (0-5) 06/16/22 10:30 Ur Squamous Epith Cells Rare /HPF (NEGATIVE) 06/16/22 10:30 Ur Renal Epithelial Cell Few /HPF (NEGATIVE) 06/13/22 21: Amorphous Sediment 1+ /HPF (NEGATIVE) 06/13/22 21:27 Urine Bacteria Negative /HPF (NEGATIVE) 06/16/22 10:30 Hyaline Casts Many /LPF (NEGATIVE) 06/13/22 21: Granular Casts Moderate /LPF (NEGATIVE) 06/13/22 21:27 Urine Mucus Few /HPF (NEGATIVE) 06/13/22 21: Ur Culture Indicated? No/not indicated 06/16/22 10:30 SARS-CoV-2 (PCR) Negative (NEGATIVE) 06/13/22 21:43 Influenza Type A (PCR) Negative (NEGATIVE) 06/13/22 21:43 Influenza Type B (PCR) Negative (NEGATIVE) 06/13/22 21:43 RSV (PCR) Negative (NEGATIVE) 06/13/22 21:43 Plan (1) Acute and chronic respiratory failure: Status: Acute Qualifiers: Respiratory failure complication: hypoxia and hypercapnia Qualified Code(s): J96.21 - Acute and chronic respiratory failure with hypoxia; J96.22 - Acute and chronic respiratory failure with hypercapnia (2) CHF exacerbation: Status: Acute (3) COPD exacerbation: Status: Acute (4) Bilateral pneumonia: Status: Acute Qualifiers: Lung location: unspecified part of lung Pneumonia type: due to Klebsiella pneumoniae Qualified Code(s): J15.0 - Pneumonia due to Klebsiella pneumoniae (5) Acute renal failure: Status: Acute
[2022-06-16] MEDS: PERCOCET TAB 5/325 MG PO PRN (20:47)
[2022-06-16] MEDS: ZOCOR TAB 10 MG PO SCH (20:49)
[2022-06-17 05:30] LABS: BASOPHILS % (AUTO) 0.3 % (0.2-1.0); EOSINOPHILS % (AUTO) 0.1 % (0.9-2.9); HEMOGLOBIN 12.1 g/dL (13.5-18.0); LYMPHOCYTES # (AUTO) 1.4 X10^3/uL (1.3-2.9); LYMPHOCYTES % (AUTO) 9.7 % (21.0-51.0); MEAN CORPUSCULAR HEMOGLOBIN 28.1 pg (27.0-34.0); MEAN CORPUSCULAR HGB CONC 32.6 g/dL (33.0-35.0); MEAN CORPUSCULAR VOLUME 86.1 fL (80.0-100.0); MEAN PLATELET VOLUME 9.2 fL (7.4-11.0); MONOCYTES # (AUTO) 0.9 x10^3/uL (0.3-0.8); NEUTROPHILS # (AUTO) 12.5 x10^3/uL (2.2-4.8); NEUTROPHILS % (AUTO) 83.9 % (42.0-75.0); RED CELL DISTRIBUTION WIDTH 17.8 % (11.6-16.5); WHITE BLOOD COUNT 14.9 X10^3/uL (3.6-10.0)
[2022-06-17 05:46] LABS: ALBUMIN 1.7 g/dL (3.4-5.0); CALCIUM 9.6 mg/dL (8.5-10.1); CARBON DIOXIDE 33.4 mmol/L (21-32); COR CA(FOR HYPOALB) 11.4 mg/dL (8.5-10.1); CREATININE 1.95 mg/dL (0.70-1.30)
[2022-06-17] MEDS: XANAX PO SCH ×4 (06:10→23:42)
[2022-06-17] MEDS: ZOSYN VIAL 3.375 GRAMS 3.375 G in NS 100 ML IV 100 ML IV SCH ×3 (06:10→22:22)
--- NOTE | 2022-06-17 07:38 | RAD ---
HISTORYFollow-up congestive heart failure, COPDSTUDYChest AP [id number] ent is status post median sternotomy and CABG. Heart remains enlarged. No definite congestive heart failure is identified. Persistent increased density in the right lower hemithorax likely due to a combination of pleural fluid and underlying infiltrate. Right upper lung field and left lung are clear with the exception of minimal subsegmental atelectasis in the left lung base. No left pleural effusion is identified. Bony thorax is unremarkable.IMPRESSIONNo significant change when compared to the prior examinationElectronically signed by: SUSAN JOYCE (Jun 17, 2022 07:37:23)
[2022-06-17] MEDS ORDERED: TOPROL XL PO ONE (08:21)
[2022-06-17] MEDS: XOPENEX 1.25 MG/3 ML NEBULE NEB SCH ×4 (08:25→20:20)
[2022-06-17] MEDS: PULMICORT NEB TX 0.5 MG NEB SCH ×2 (08:25→20:20)
[2022-06-17] MEDS: ELIQUIS PO SCH ×2 (08:52→20:34)
[2022-06-17] MEDS: NORVASC TAB 10 MG PO SCH ×2 (08:52→08:55)
[2022-06-17] MEDS: FLOMAX PO SCH (08:52)
[2022-06-17] MEDS: TOPROL XL PO SCH (08:53)
[2022-06-17] MEDS: LASIX IVP SCH ×2 (08:53→17:26)
[2022-06-17] MEDS: K-DUR TAB 20 MEQ PO SCH (08:53)
--- NOTE | 2022-06-17 09:43 | PCM.PROG ---
Progress Note Progress Note for Day of Date of Exam: 06/17/22 Subjective Subjective: Pt is an 82 year old male admitted for CHF exacerbation, COPD exacerbation, Acute respiratory failure, Pneumonia, and Acute renal failure. This morning patient is on heated high flow oxygen with FiO2 65%. No acute events overnight. His family does report him having difficulty sleeping at [facility]. Labs/imaging: Wbc 14.9, Hgb 12.1, Plt 195, Na 149, K 4.7, Creatinine 1.95, Glucose 120, CXR: no change from prior. Pt is currently on antibiotics: Zosyn and Levaquin. IV lasix 40mg BID, scheduled bronchodilators. Plan for respiratory therapy to continue to work with patient. Will get Echo and CT chest w/o contrast for evaluation of cardiac and pulmonary status. Renal function gradually improving. Will add valium at night to help with sleep and anxiety. Otherwise, continue with current treatment plan. Continue to closely monitor and follow up labs/imaging. Past Medical Family Social History Allergies: Allergies No Known Drug Allergies Allergy (Unknown, Verified 06/13/22 19:35) Onset Date: 01/12/2019 Review of Systems ROS: No change since H&P Vital Signs and I&O's Vital Signs: Temperature 97.6 F Pulse Rate [Left Brachial] 105 Pulse Rate 90 Respiratory Rate 18 Blood Pressure [Right Arm] 106/66 Blood Pressure [Left Arm] 115/67 Blood Pressure 119/58 O2 Sat by Pulse Oximetry 98 Intake and Output: Intake & Output 06/14/22 06/15/22 06/16/22 06/17/22 23:59 23:59 23:59 23:59 Intake Total 760 / 760 581 / 581 1288 / 1288 348 / 348 Output Total 3800 / 3800 2800 / 2800 Balance 760 / 760 581 / 581 -2512 / -2512 -2452 / -2452 Physical Exam Oriented: Normal Eyes: Normal Ear: Normal Nose: Normal Respiratory: Rales Cardiovascular: Normal : Normal Auscultation: Bowel Sounds: Normal Tenderness: Normal Skin: Normal Musculoskeletal: Normal Mood Description: Calm Speech Pattern: Appropriate and Unclear Laboratory and Diagnostics Result Diagrams: 06/17/22 04:30 06/17/22 04:30 Labs: Laboratory WBC 14.9 X10^3/uL (3.6-10.0) H 06/17/22 04:30 RBC 4.30 X10^6/uL (4.7-6.0) L 06/17/22 04:30 Hgb 12.1 g/dL (13.5-18.0) L 06/17/22 04:30 Hct 37.0 % (42.0-54.0) L 06/17/22 04:30 MCV 86.1 fL (80.0-100.0) 06/17/22 04:30 MCH 28.1 pg (27.0-34.0) 06/17/22 04:30 MCHC 32.6 g/dL (33.0-35.0) L 06/17/22 04:30 RDW 17.8 % (11.6-16.5) H 06/17/22 04:30 Plt Count 195 X10^3/uL (150.0-450.0) 06/17/22 04:30 Plt Count Comment Adequate (ADEQUATE) 06/16/22 04:35 MPV 9.2 fL (7.4-11.0) 06/17/22 04:30 Neut % (Auto) 83.9 % (42.0-75.0) H 06/17/22 04:30 Lymph % (Auto) 9.7 % (21.0-51.0) L 06/17/22 04:30 Maury % (Auto) 6.0 % (0.0-13.0) 06/17/22 04:30 Eos % (Auto) 0.1 % (0.9-2.9) L 06/17/22 04:30 Baso % (Auto) 0.3 % (0.2-1.0) 06/17/22 04:30 Neut # (Auto) 12.5 x10^3/uL (2.2-4.8) H 06/17/22 04:30 Lymph # (Auto) 1.4 X10^3/uL (1.3-2.9) 06/17/22 04:30 Maury # (Auto) 0.9 x10^3/uL (0.3-0.8) H 06/17/22 04:30 Eos # (Auto) 0.0 x10^3/uL (0.0-0.2) 06/17/22 04:30 Baso # (Auto) 0.0 X10^3/uL (0.0-0.1) 06/17/22 04:30 Absolute Nucleated RBC 0.0 /100WBC 06/17/22 04:30 Total Counted 100 06/16/22 04:35 Neutrophils % (Manual) 84 % (39-76) H 06/16/22 04:35 Band Neutrophils % 6 % (0-10) 06/16/22 04:35 Lymphocytes % (Manual) 8 % (13-43) L 06/16/22 04:35 Monocytes % (Manual) 2 % (4-9) L 06/16/22 04:35 Plt Morphology Comment Normal (NORMAL) 06/16/22 04:35 RBC Morphology Abnormal (NORMAL) 06/16/22 04:35 Anisocytosis Slight A 06/16/22 04:35 Target Cells Slight A 06/15/22 04:15 Schistocytes Slight A 06/13/22 19:45 PT 18.2 SECONDS (11.8-14.3) 06/14/22 05:43 INR Target Range - 06/14/22 05:43 INR 1.57 (0.8-1.3) H 06/14/22 05:43 APTT 38.5 SECONDS (22.9-36.5) H 06/14/22 05:43 PTT Comment - 06/14/22 05:43 Sample Site Rr 06/15/22 08:26 ABG pH 7.330 (7.35-7.45) L 06/15/22 08:26 ABG pCO2 49.0 mmHg (35.0-45.0) H 06/15/22 08:26 ABG pO2 84.0 mmHg (80.0-100.0) 06/15/22 08:26 ABG HCO3 25.8 mmol/L (22-26) 06/15/22 08:26 ABG O2 Saturation 95.0 % (90-100) 06/15/22 08:26 ABG Base Excess -0.6 mmol/L (-2.0-2.0) 06/15/22 08:26 Anselmo Test Pos 06/15/22 08:26 A-a Gradient 247.0 mmHg 06/15/22 08:26 FiO2 55.0 06/15/22 08:26 Blood Gas Comments Kelly well cb 06/15/22 08:26 Sodium 149 mmol/L (136-145) H 06/17/22 04:30 Corrected Sodium 149 mmol/L (136-145) H 06/17/22 04:30 Potassium 4.7 mmol/L (3.5-5.1) 06/17/22 04:30 Chloride 108 mmol/L (98-107) H 06/17/22 04:30 Carbon Dioxide 33.4 mmol/L (21-32) H 06/17/22 04:30 BUN 80 mg/dL (7-18) H 06/17/22 04:30 Creatinine 1.95 mg/dL (0.70-1.30) H 06/17/22 04:30 Est GFR (MDRD) Af Amer 43 (>60) L 06/17/22 04:30 Est GFR (MDRD) Non-Af 35 (>60) L 06/17/22 04:30 Glucose 120 mg/dL (65-99) H 06/17/22 04:30 Calcium 9.6 mg/dL (8.5-10.1) 06/17/22 04:30 Corrected Calcium 11.4 mg/dL (8.5-10.1) H 06/17/22 04:30 Magnesium 2.4 mg/dL (2.0-2.9) 06/14/22 05:43 Total Bilirubin 0.70 mg/dL (0.2-1.0) 06/17/22 04:30 AST 22 Units/L (15-37) 06/17/22 04:30 ALT 25 Units/L (12-78) 06/17/22 04:30 Alkaline Phosphatase 109 Units/L (46-116) 06/17/22 04:30 Creatine Kinase 28 Units/L (39-308) L 06/14/22 11:15 Troponin I High Sens 30.7 ng/L (4.0-60.0) 06/14/22 11:17 B-Natriuretic Peptide 513 pg/mL (0-79) H* 06/13/22 19:45 Total Protein 7.0 g/dL (6.4-8.2) 06/17/22 04:30 Albumin 1.7 g/dL (3.4-5.0) L 06/17/22 04:30 Globulin 5.3 g/dL (2.5-4.5) H 06/17/22 04:30 Albumin/Globulin Ratio 0.3 Ratio (1.1-2.1) L 06/17/22 04:30 Specimen Type Catherized urine 06/16/22 10:30 Urine Color Yellow (YELLOW) 06/16/22 10:30 Urine Appearance Clear (CLEAR) 06/16/22 10:30 Urine pH 5.0 (5.0 - 8.0) 06/16/22 10:30 Ur Specific Umpire 1.015 (1.000-1.030) 06/16/22 10:30 Urine Protein 2+ (NEGATIVE) 06/16/22 10:30 Urine Glucose (UA) Negative (NEGATIVE) 06/16/22 10:30 Urine Ketones Negative (NEGATIVE) 06/16/22 10:30 Urine Blood 1+ (NEGATIVE) 06/16/22 10:30 Urine Nitrite Negative (NEGATIVE) 06/16/22 10:30 Urine Bilirubin Negative (NEGATIVE) 06/16/22 10:30 Urine Urobilinogen Normal (NORMAL) 06/16/22 10:30 Ur Leukocyte Esterase Negative (NEGATIVE) 06/16/22 10:30 Urine RBC 0-2 /HPF (0-3) 06/16/22 10:30 Urine WBC None seen /HPF (0-5) 06/16/22 10:30 Ur Squamous Epith Cells Rare /HPF (NEGATIVE) 06/16/22 10:30 Ur Renal Epithelial Cell Few /HPF (NEGATIVE) 06/13/22 21: Amorphous Sediment 1+ /HPF (NEGATIVE) 06/13/22 21:27 Urine Bacteria Negative /HPF (NEGATIVE) 06/16/22 10:30 Hyaline Casts Many /LPF (NEGATIVE) 06/13/22 21: Granular Casts Moderate /LPF (NEGATIVE) 06/13/22 21:27 Urine Mucus Few /HPF (NEGATIVE) 06/13/22 21:27 Ur Culture Indicated? No/not indicated 06/16/22 10:30 SARS-CoV-2 (PCR) Negative (NEGATIVE) 06/13/22 21:43 Influenza Type A (PCR) Negative (NEGATIVE) 06/13/22 21:43 Influenza Type B (PCR) Negative (NEGATIVE) 06/13/22 21:43 RSV (PCR) Negative (NEGATIVE) 06/13/22 21:43 Plan (1) Acute and chronic respiratory failure: Status: Acute Qualifiers: Respiratory failure complication: hypoxia and hypercapnia Qualified Code(s): J96.21 - Acute and chronic respiratory failure with hypoxia; J96.22 - Acute and chronic respiratory failure with hypercapnia (2) CHF exacerbation: Status: Acute (3) COPD exacerbation: Status: Acute (4) Bilateral pneumonia: Status: Acute Qualifiers: Lung location: unspecified part of lung Pneumonia type: due to Klebsiella pneumoniae Qualified Code(s): J15.0 - Pneumonia due to Klebsiella pneumoniae (5) Acute renal failure: Status: Acute
--- NOTE | 2022-06-17 10:08 | EKG ---
Test Reason : new onset afib Blood Pressure : */* mmHG Vent. Rate : 93 BPM Atrial Rate : 78 BPM P-R Int : * ms QRS Dur : 96 ms QT Int : 358 ms P-R-T Axes : * 46 105 degrees QTc Int : 445 ms Normal sinus rhythm prolonged pr interval Otherwise normal ECG When compared with ECG of 14-JUN-2022 05:22, Current undetermined rhythm precludes rhythm comparison, needs review ST no longer elevated in Inferior leads Confirmed by Popeye Melendez ([id number]) on 06/17/2022 6:09:47 PM Referred By: Confirmed By: Popeye Melendez
--- NOTE | 2022-06-17 12:27 | CT ---
HISTORYCOPD, CHF, SOBSTUDYCHEST W/O CONCOMPARISONChest radiograph 06/17/[address] 03/25/2021TECHNIQUEMultiple CT axial images of the chest were obtained without IV contrast. Coronal and sagittal images were reconstructed. Dose reduction techniques included Automated Exposure Control (AEC) and adjustment of mA and kV.FINDINGSCardiomegaly is present.Atherosclerotic calcification is present in the coronary arteries.The pulmonary artery and aorta have a normal caliber. No mediastinal mass or significant lymphadenopathy. The lymph nodes are stable when compared to the prior study.The thyroid has a normal size and configuration. No axillary mass or significant axillary lymphadenopathy is identified.Small to moderate right pleural effusion is larger than on the prior study. The small pleural effusion which was present on the left side on the prior study has resolved today.Emphysematous changes are present. Atelectasis or pneumonia in the right lung has progressed since the prior study. There is now a complete collapse of the right middle lobe and right lower lobe. Low-density obstruction in the right main bronchus could be mucous plugging.Right upper lobe is still aerated but there is minimal opacity here which could be atelectasis or pneumonia. Similar abnormal opacity in the posterior left lower lobe could also be pneumonia. These findings were not present on the prior study.A layer of calcified gallstones are present with no inflammation. Aortic stent graft seen on the last 2 images.Degenerative changes are present in the spine. Median sternotomy wires are present.IMPRESSION1. Right main bronchus obstruction, probably from mucous plugging2. Progressed right middle lobe and right lower lobe collapse3. Emphysema with new right upper lobe and left lower lobe pneumonia4. Larger right effusion but resolved left effusion5. CholelithiasisElectronically signed by: Roni Saunders (Jun 17, 2022 12:26:29)
[2022-06-17] MEDS: MUCOMYST (RESPIRATORY USE ONLY) NEB SCH ×2 (16:30→20:20)
[2022-06-17] MEDS: ZOCOR TAB 10 MG PO SCH (20:34)
[2022-06-17] MEDS ORDERED: VALIUM INJ IVP SCH (21:00)
[2022-06-17] MEDS ORDERED: NS 250 ML IV 250 ML IV ONE (22:55)
[2022-06-18] MEDS: XOPENEX 1.25 MG/3 ML NEBULE NEB SCH ×3 (00:25→13:00)
[2022-06-18] MEDS ORDERED: SALINE 0.9% 3 ML NEB TX ONE (00:29)
[2022-06-18] MEDS ORDERED: XOPENEX 1.25 MG/3 ML NEBULE NEB ONE (00:29)
--- NOTE | 2022-06-18 00:37 | EKG ---
Test Reason : chest pain Blood Pressure : */* mmHG Vent. Rate : 105 BPM Atrial Rate : 115 BPM P-R Int : * ms QRS Dur : 100 ms QT Int : 340 ms P-R-T Axes : * 42 90 degrees QTc Int : 449 ms Probablr atrial fibrillation/flutter Nonspecific ST and T wave abnormality Abnormal ECG When compared with ECG of 14-JUN-2022 11:27, Current undetermined rhythm precludes rhythm comparison, needs review Nonspecific T wave abnormality, worse in Anterolateral leads Confirmed by Popeye Melendez ([id number]) on 06/20/2022 7:10:28 AM Referred By: Confirmed By: Popeye Melendez
[2022-06-18] MEDS ORDERED: NS 100 ML IV 100 ML ONE (04:45)
[2022-06-18] MEDS: ZOSYN VIAL 3.375 GRAMS 3.375 G in NS 100 ML IV 100 ML IV SCH ×3 (05:46→14:02)
[2022-06-18] MEDS: XANAX PO SCH (05:54)
[2022-06-18 06:15] LABS: BASOPHILS % (AUTO) 0.2 % (0.2-1.0); EOSINOPHILS % (AUTO) 0.2 % (0.9-2.9); HEMATOCRIT 39.5 % (42.0-54.0); LYMPHOCYTES # (AUTO) 1.8 X10^3/uL (1.3-2.9); LYMPHOCYTES % (AUTO) 12.2 % (21.0-51.0); MEAN CORPUSCULAR HEMOGLOBIN 28.5 pg (27.0-34.0); MEAN CORPUSCULAR VOLUME 86.3 fL (80.0-100.0); MEAN PLATELET VOLUME 9.2 fL (7.4-11.0); MONOCYTES # (AUTO) 0.9 x10^3/uL (0.3-0.8); MONOCYTES % (AUTO) 5.9 % (0.0-13.0); NEUTROPHILS % (AUTO) 81.5 % (42.0-75.0); RED BLOOD COUNT 4.57 X10^6/uL (4.7-6.0); RED CELL DISTRIBUTION WIDTH 17.6 % (11.6-16.5); WHITE BLOOD COUNT 14.7 X10^3/uL (3.6-10.0)
[2022-06-18 06:39] LABS: ALBUMIN 1.9 g/dL (3.4-5.0); CALCIUM 9.8 mg/dL (8.5-10.1); CARBON DIOXIDE 36.9 mmol/L (21-32); COR CA(FOR HYPOALB) 11.5 mg/dL (8.5-10.1); CREATININE 1.94 mg/dL (0.70-1.30); TOTAL PROTEIN 7.4 g/dL (6.4-8.2)
--- NOTE | 2022-06-18 08:23 | RAD ---
HISTORYShortness of breath, congestive heart failureSTUDYChest AP [id number]/2023 chest x-ray and CT chestFINDINGSPatient is status post median sternotomy. The heart is enlarged. Abnormal parenchymal density is again identified in the right lower hemithorax due in part to right pleural effusion but also due to right middle and right lower lobe atelectasis as indicated on the recent chest CT remainder of the lung rosenberg are free of acute infiltrates. There does appear to be some subsegmental atelectasis in left lung base. No left pleural effusion is identified. Bony thorax is unremarkable.IMPRESSIONNo change cardiomegaly without congestive heart failureNo change increased density lower right hemithorax demonstrated on recent CT to be a combination of right pleural effusion and right middle and right lower lobe atelectasis.Electronically signed by: SUSAN JOYCE (Jun 18, 2022 08:21:44)
[2022-06-18] MEDS ORDERED: XANAX PO PRN (08:54)
[2022-06-18] MEDS: PULMICORT NEB TX 0.5 MG NEB SCH (09:00)
[2022-06-18] MEDS ORDERED: D5W 1,000 ML IV 1,000 ML IV SCH (09:00)
[2022-06-18] MEDS: MUCOMYST (RESPIRATORY USE ONLY) NEB SCH (09:00)
[2022-06-18] MEDS ORDERED: TOPROL XL PO ONE (09:11)
[2022-06-18 09:36] LABS: ABG BASE EXCESS 13.3 mmol/L (-2.0-2.0)
[2022-06-18 09:37] LABS: ABG ALLEN TEST POS; ABG HCO3 41.4 mmol/L (22-26)
[2022-06-18] MEDS: ELIQUIS PO SCH (09:50)
[2022-06-18] MEDS: TOPROL XL PO SCH (09:50)
[2022-06-18] MEDS: LASIX IVP SCH (09:50)
[2022-06-18] MEDS ORDERED: D5 1/2 NS 1,000 ML 1,000 ML IV SCH (12:00)
[2022-06-18] MEDS: K-DUR TAB 20 MEQ PO SCH (12:11)
[2022-06-18] MEDS: NORVASC TAB 10 MG PO SCH (12:12)
[2022-06-18] MEDS: FLOMAX PO SCH (12:16)
[2022-06-18] MEDS: PEPCID TAB 20 MG PO SCH (12:16)
[2022-06-18] MEDS: LEVAQUIN PREMIX IV 750 MG 750 MG/150 ML BAG IV SCH (12:17)
[2022-06-18] MEDS ORDERED: LOPRESSOR INJ 5 MG AMP IVP SCH (13:00)
[2022-06-18] MEDS ORDERED: LOVENOX INJ 30 MG SYR SC SCH (13:00)
[2022-06-18 16:48] VITALS: BP 138/63
[2022-06-19] MEDS ORDERED: PEPCID 20 MG VIAL 20 MG in NS 50 ML IV 50 ML IV SCH (09:00)
== END 2022-06-18 16:20 | disposition short-term general hospital (02) | DRG 308 ==
LOC: ER 19:16 → MED/SURG 22:49
PROVIDERS: ADMIT Obstetrics & Gynecology Obstetrics; ATTEND Family Medicine
DX: Z20.822 Contact with and (suspected) exposure to COVID-19; J84.10 Pulmonary fibrosis, unspecified; J96.22 Acute and chronic respiratory failure with hypercapnia; I50.9 Heart failure, unspecified; N17.8 Other acute kidney failure; I48.91 Unspecified atrial fibrillation; J44.1 Chronic obstructive pulmonary disease with (acute) exacerbation; J90 Pleural effusion, not elsewhere classified; J15.0 Pneumonia due to Klebsiella pneumoniae; J96.21 Acute and chronic respiratory failure with hypoxia; R79.1 Abnormal coagulation profile; R79.82 Elevated C-reactive protein (CRP); R94.31 Abnormal electrocardiogram [ECG] [EKG]